=== PATIENT | female | born 1990 | race African-American/Black ===

== ENCOUNTER 2019-01-19 13:28 | Inpatient (IN) | payer MEDICARE ==
[~2019-01-19] VITALS: Ht 157.5 cm; Wt 102.1 kg
[2019-01-19] MEDS ORDERED: IV NORMAL SALINE 1,000ML 1,000 ML IV SCH (13:50)
--- NOTE | 2019-01-19 13:58 | PHYS DOC ---
Past History Past Medical History: Hypertension, Pancreatitis Past Surgical History: No Surgical History Alcohol Use: Sober Drug Use: None Adult General Chief Complaint Chief Complaint: MULTIPLE COMPLAINTS HPI HPI Patient is a 28-year-old female with upper abdominal pain going into her chest like previous episodes of pancreatitis. Patient drank a pint yesterday, after being sober for the past month. She has had 3 episodes of nausea and vomiting today as well as diarrhea. No blood in the stool or emesis. No travel. No fever. No worsening of the chest discomfort with exertion. No change with rest. No worsening of abdominal pain with movement. Discomfort is mild to moderate. Nothing seems to make the discomfort better or worse. His no radiation other than as noted above, no radiation down the arms or into the back.[] Review of Systems Review of Systems Constitutional: Denies fever or chills [] Eyes: Denies change in visual acuity, redness, or eye pain [] HENT: Denies nasal congestion or sore throat [] Respiratory: Denies cough or shortness of breath [] Cardiovascular: No additional information not addressed in HPI [] GI: See history of present illness[] : Denies dysuria or hematuria [] Musculoskeletal: Denies back pain or joint pain [] Integument: Denies rash or skin lesions [] Neurologic: Denies headache, focal weakness or sensory changes [] Endocrine: Denies polyuria or polydipsia [] All other systems were reviewed and found to be within normal limits, except as documented in this note. Current Medications Current Medications Current Medications Medications (Trade) Dose Ordered Sig/Luis Felipe Start Time Stop Time Status Last Admin Dose Admin Ketorolac Tromethamine (Toradol 30mg Vial) 30 mg 1X ONCE 01/19/19 14:00 01/19/19 14:01 UNV Prochlorperazine Edisylate (Compazine) 5 mg 1X ONCE 01/19/19 14:00 01/19/19 14:01 UNV Sodium Chloride 1,000 ml @ 1,000 mls/hr Q1H 01/19/19 13:50 01/19/19 14:49 UNV Physical Exam Physical Exam Constitutional: Well developed, well nourished, no acute distress, non-toxic appearance. [] HENT: Normocephalic, atraumatic, bilateral external ears normal, oropharynx moist, no oral exudates, nose normal. [] Eyes: PERRLA, EOMI, conjunctiva normal, no discharge. [] Neck: Normal range of motion, no tenderness, supple, no stridor. [] Cardiovascular:Heart rate is tachycardic with a regular rhythm, no murmur [] Lungs & Thorax: Bilateral breath sounds clear to auscultation [] Abdomen: Bowel sounds normal, soft, mild upper abdominal tenderness without rebound, guarding, or rigidity, no McBurney's point tenderness, and negative Alvarado's sign, no masses, no pulsatile masses. [] Skin: Warm, dry, no erythema, no rash. [] Back: No tenderness, no CVA tenderness. [] Extremities: No tenderness, no cyanosis, no clubbing, ROM intact, no edema. [] Neurologic: Alert and oriented X 3, normal motor function, normal sensory function, no focal deficits noted. [] Psychologic: Affect normal, judgement normal, mood normal. [] EKG EKG EKG shows a sinus tachycardia at 105 bpm, leftward axis at 0�, QTC 496 ms, incomplete right bundle branch block. No old EKG available for comparison. Interpreted by me at 1343[] Radiology/Procedures Radiology/Procedures PROCEDURE: CT ABD PELV W/ IV CONTRST ONLY CT abdomen and pelvis with IV contrast 01/19/2019. Reason for exam: Upper abdominal pain. History of pancreatitis. CT images were made through the abdomen and pelvis using an infusion of 75 mL Omnipaque 300. No oral contrast was given. Exposure: One or more of the following individualized dose reduction techniques were utilized for this examination: 1. Automated exposure control 2. Adjustment of the mA and/or kV according to patient size 3. Use of iterative reconstruction technique. There are no available comparison studies. FINDINGS: There is a small nodular structure in the lingula at the upper most margin of the scan. This measures about 1 cm and is only partly shown. This could represent a focal infiltrate. Given the patient's age, other processes are less likely. The liver shows diffuse fatty infiltration and is enlarged. No focal lesion is seen. The spleen appears normal. Both kidneys enhance with contrast. No mass or obstruction is seen. The adrenal glands are not enlarged. There is haziness in the peripancreatic fat. No pancreatic mass or localized fluid collection is seen. There may be slight reduction in enhancement through the mid pancreas, but there is no evidence of significant necrosis at this time. No adenopathy or soft tissue mass is seen. Images through the pelvis show no abnormality of the distal ureters or bladder. No pelvic or inguinal adenopathy is seen. Uterus and adnexal areas appear normal for age. There is no separate pelvic mass or other inflammatory process. A normal appendix is probably seen medial to the cecum. IMPRESSION: Findings are consistent with acute interstitial pancreatitis. There is no evidence of significant necrosis or other complication at this point.[] Course & Med Decision Making Course & Med Decision Making Pertinent Labs and Imaging studies reviewed. (See chart for details) ED course: Patient arrived, was placed in bed, and tolerated exam well. She received IV fluids, and pain medicine, and was transported to and from radiology with any complications. After the return of lab and imaging findings, these were discussed the patient and her father at the patient's request. Patient's heart rate improved to the 80s. Pain was improved as well. Consultation was made with hospitalist service who graciously accepted. Patient was admitted in i mproved condition. Medical decision makin-year-old female with acute pancreatitis. Admitting for IV hydration and longer term pain management in the emergency department can provide. No evidence of an acute coronary syndrome, no evidence of significant electrolyte abnormality. No evidence of obstruction or perforation.[] Dragon Disclaimer Dragon Disclaimer This electronic medical record was generated, in whole or in part, using a voice recognition dictation system. Departure Departure: Impression: Primary Impression: Acute pancreatitis Disposition: ADMITTED INPATIENT Admitting Physician: Sara Frederick Condition: IMPROVED Referrals: PCP,NO (PCP) Problem Qualifiers Primary Impression: Acute pancreatitis Pancreatitis type: alcohol induced Acute pancreatitis complication: no infection or necrosis Qualified Codes: K85.20 - Alcohol induced acute pancreatitis without necrosis or infection ALEXIS PAUL DO Jan 19, 2019 13:58
[2019-01-19] MEDS ORDERED: KETOROLAC 30 MG/ML VIAL. IV ONE (14:00)
[2019-01-19] MEDS ORDERED: PROCHLORPERAZINE 10 MG/2 ML VIAL. IV ONE (14:00)
[2019-01-19] MEDS ORDERED: IOHEXOL 300 MG/ML 75 ML VIAL. IV ONE (14:30)
[2019-01-19 14:57] LABS: BASO % 1 % (0-3); EOS % 0 % (0-3); HEMOGLOBIN 12.9 g/dL (12.0-15.5); LYMPH # 2.8 x10^3/uL (1.0-4.8); LYMPH % 34 % (24-48); MEAN CORPUSCULAR HEMOGLOBIN 28 pg (25-35); MEAN CORPUSCULAR HGB CONC 33 g/dL (31-37); MEAN CORPUSCULAR VOLUME 84 fL (79-100); MONO # 0.8 x10^3/uL (0.0-1.1); MONO % 9 % (0-9); NEUT # 4.7 x10^3uL (1.8-7.7); NEUT % 56 % (31-73); PLATELET COUNT 383 x10^3/uL (140-400); RED BLOOD COUNT 4.63 x10^6/uL (3.50-5.40); RED CELL DISTRIBUTION WIDTH 16.1 % (11.5-14.5); WHITE BLOOD COUNT 8.3 x10^3/uL (4.0-11.0)
[2019-01-19 15:07] LABS: ALBUMIN/GLOBULIN RATIO 0.8 (1.0-1.7); CALCIUM 8.9 mg/dL (8.5-10.1); CREATININE 1.1 mg/dL (0.6-1.0); GFR 71.1; POTASSIUM 4.4 mmol/L (3.5-5.1); TOTAL BILIRUBIN 0.4 mg/dL (0.2-1.0)
[2019-01-19 15:11] LABS: BARBITURATES NEG (NEG); BENZODIAZEPINES NEG (NEG); CANNABINOIDS NEG (NEG); COCAINE NEG (NEG); METHADONE NEG (NEG); OPIATES NEG (NEG); PHENCYCLIDINE NEG (NEG)
[2019-01-19 15:22] LABS: AMPHETAMINE/METHAMPHETAMINE NEG (NEG)
[2019-01-19] MEDS ORDERED: MORPHINE SULFATE 4 MG/ML DISP.SYRIN. IV/SQ PRN (16:00)
--- NOTE | 2019-01-19 16:08 | RAD ---
CT abdomen and pelvis with IV contrast 01/19/2019. Reason for exam: Upper abdominal pain. History of pancreatitis. CT images were made through the abdomen and pelvis using an infusion of 75 mL Omnipaque 300. No oral contrast was given. Exposure: One or more of the following individualized dose reduction techniques were utilized for this examination: 1. Automated exposure control 2. Adjustment of the mA and/or kV according to patient size 3. Use of iterative reconstruction technique. There are no available comparison studies. FINDINGS: There is a small nodular structure in the lingula at the upper most margin of the scan. This measures about 1 cm and is only partly shown. This could represent a focal infiltrate. Given the patient's age, other processes are less likely. The liver shows diffuse fatty infiltration and is enlarged. No focal lesion is seen. The spleen appears normal. Both kidneys enhance with contrast. No mass or obstruction is seen. The adrenal glands are not enlarged. There is haziness in the peripancreatic fat. No pancreatic mass or localized fluid collection is seen. There may be slight reduction in enhancement through the mid pancreas, but there is no evidence of significant necrosis at this time. No adenopathy or soft tissue mass is seen. Images through the pelvis show no abnormality of the distal ureters or bladder. No pelvic or inguinal adenopathy is seen. Uterus and adnexal areas appear normal for age. There is no separate pelvic mass or other inflammatory process. A normal appendix is probably seen medial to the cecum. IMPRESSION: Findings are consistent with acute interstitial pancreatitis. There is no evidence of significant necrosis or other complication at this point. Electronically signed by: Wenceslao Celestin Jr., MD (01/19/2019 4:05 PM) [facility]
[2019-01-19] MEDS: IV NORMAL SALINE 1,000ML 1,000 ML IV SCH (16:53)
[2019-01-19] MEDS ORDERED: MVI, ADULT NO.4 WITH VIT K 10 ML, FOLIC ACID SYRINGE for ER 1 MG, THIAMINE INJ 100 MG i... IV ONE ×4 (17:00)
[2019-01-19 18:01] VITALS: BP 134/81
[2019-01-19] MEDS ORDERED: LOSA50TA86 PO (18:11)
[2019-01-19] MEDS ORDERED: FLUO20CA8 PO (18:11)
[2019-01-19] MEDS ORDERED: TRIA1CAP3 PO (18:11)
[2019-01-19] MEDS ORDERED: CLON1TAB11 PO (18:11)
[2019-01-19] MEDS ORDERED: SPIR25TA5 PO (18:11)
[2019-01-19] MEDS: ONDANSETRON PF 4 MG/2 ML VIAL. IV PRN ×2 (18:16→23:19)
[2019-01-19] MEDS: MORPHINE SULFATE 4 MG/ML DISP.SYRIN. IV PRN ×2 (18:17→21:15)
[2019-01-19 23:33] VITALS: BP 112/78
[2019-01-20] VITALS (9 sets, daily range): BP systolic 116–168; BP diastolic 81–128
[2019-01-20] MEDS: IV NORMAL SALINE 1,000ML 1,000 ML IV SCH ×3 (00:16→20:15)
[2019-01-20] MEDS: MORPHINE SULFATE 4 MG/ML DISP.SYRIN. IV PRN ×9 (01:15→22:31)
[2019-01-20] MEDS: ONDANSETRON PF 4 MG/2 ML VIAL. IV PRN ×2 (03:12→07:31)
[2019-01-20] MEDS: ENALAPRILAT 2.5 MG/2 ML VIAL. IV PRN ×2 (06:57→07:26)
[2019-01-20 07:15] LABS: BASO % 1 % (0-3); EOS % 1 % (0-3); HEMATOCRIT 36.8 % (36.0-47.0); LYMPH # 1.7 x10^3/uL (1.0-4.8); LYMPH % 20 % (24-48); MEAN CORPUSCULAR HEMOGLOBIN 27 pg (25-35); MEAN CORPUSCULAR HGB CONC 33 g/dL (31-37); MEAN CORPUSCULAR VOLUME 84 fL (79-100); MONO # 0.5 x10^3/uL (0.0-1.1); MONO % 6 % (0-9); NEUT # 6.2 x10^3uL (1.8-7.7); NEUT % 73 % (31-73); PLATELET COUNT 315 x10^3/uL (140-400); RED BLOOD COUNT 4.41 x10^6/uL (3.50-5.40); RED CELL DISTRIBUTION WIDTH 16.1 % (11.5-14.5); WHITE BLOOD COUNT 8.5 x10^3/uL (4.0-11.0)
[2019-01-20 07:31] LABS: ALBUMIN 3.5 g/dL (3.4-5.0); ALBUMIN/GLOBULIN RATIO 0.8 (1.0-1.7); CALCIUM 7.9 mg/dL (8.5-10.1); CREATININE 0.8 mg/dL (0.6-1.0); GFR 102.6; POTASSIUM 3.6 mmol/L (3.5-5.1); TOTAL BILIRUBIN 0.6 mg/dL (0.2-1.0); TOTAL PROTEIN 7.9 g/dL (6.4-8.2)
[2019-01-20] MEDS ORDERED: LABETALOL 20 MG/4 ML DISP.SYRIN. IVP PRN (11:30)
[2019-01-20] MEDS: LABETALOL 100 MG/20 ML VIAL. IV PRN (11:47)
[2019-01-20] MEDS ORDERED: MORPHINE SULFATE 4 MG/ML DISP.SYRIN. ONE (17:42)
[2019-01-20] MEDS ORDERED: ONDANSETRON PF 4 MG/2 ML VIAL. IV PRN (18:30)
--- NOTE | 2019-01-20 22:12 | HP ---
ADMIT DATE: 01/19/2019 HISTORY OF PRESENT ILLNESS: The patient is a 28-year-old female patient who came to the Emergency Room complaining of severe upper abdominal pain, going to her chest like previous episodes of pancreatitis. The patient drank a pint on Sunday after being sober for the past month. She has had 3 episodes of nausea and vomiting yesterday as well as diarrhea. No blood in the stool or emesis. No travel, no fever, no worsening of the chest discomfort with exertion. No change with rest. No worsening of abdominal pain with movement. Discomfort is mild to moderate. Nothing seems to make the discomfort better or worse. She was extensively investigated and was found to have acute pancreatitis. Her serum lipase was 106, has also transaminitis; however, her white cell count was normal. Urinalysis was unremarkable and toxic screen was negative, was admitted, kept n.p.o., started on IV fluid, IV pain medication. PAST MEDICAL HISTORY: Significant for hypertension, prediabetes, hyperlipidemia, although she is not on any cholesterol lowering agent. PAST SURGICAL HISTORY: Unremarkable. ALLERGIES: She has no known drug allergies. MEDICATIONS: She is currently on following medications: She is on losartan potassium 50 mg once a day, spironolactone 25 mg once a day, clonazepam 1 mg daily, fluoxetine 20 mg daily, triamterene/hydrochlorothiazide 37.5/25 one tablet once a day. FAMILY HISTORY: She is the only child, has no brothers or sisters. Her father is still alive at age of 53 and has hypertension. Mother at age 43 because of multiple sclerosis. SOCIAL HISTORY: She is , has 1 daughter. She does not smoke; however, she drinks alcohol and has had 3 previous episodes of pancreatitis related to alcohol and does not use any drugs. She is currently [id number] mom. PHYSICAL EXAMINATION: GENERAL: On arrival to the Emergency Room, she was clearly in pain, but there is no pallor, jaundice or cyanosis. No lymphadenopathy, no thyromegaly. No jugular venous distention. No limb edema. VITAL SIGNS: Her heart rate was 90, blood pressure was 143/92, temperature was 97.7, respiratory rate was 18 and oxygen saturation was 99%. HEAD, EYES, EARS, NOSE AND THROAT: Showed normocephalic, atraumatic. NECK: Supple. HEART: Showed normal first and second heart sounds. No gallop, rub or murmur. CHEST: Clear to auscultation. No crepitation, rhonchi. ABDOMEN: Distended, soft, nontender. No guarding or rigidity. No organomegaly. All hernial orifice intact. Bowel sounds normal. NEUROLOGIC: She is awake, alert, responding appropriately. All cranial nerves intact. EXTREMITIES: She moves extremities without difficulty. She ambulates without assistance or assistive devices. LABORATORY WORK: On admission showed a white cell count of 8300, hemoglobin 12.9, hematocrit 39, MCV 84 and platelet count 383,000. Her chemistry showed a serum sodium 134, potassium 4.4, chloride 100, bicarbonate 19, anion gap of 15, BUN 16, creatinine 1.1, estimated GFR was 71 mL per minute. Her glucose 122, calcium was 8.9. Total bilirubin is normal; however, AST, ALT, alkaline phosphatase are elevated. Total protein was 9, albumin was 4 and serum lipase was 106. Urinalysis showed that the urine test was negative and toxic screen was negative for opiates, methadone, barbiturates, phencyclidine, amphetamine, methamphetamine, benzodiazepine, cocaine, cannabinoids and ethyl alcohol. She did have a CT scan of the abdomen and pelvis, which basically showed that findings are consistent with acute interstitial pancreatitis. There is no evidence of significant necrosis or other complication at this point. ASSESSMENT AND PLAN: In summary, this is a 28-year-old female patient who is coming for the fourth episode of alcohol-induced pancreatitis. The patient was kept n.p.o., started on IV fluid, IV pain medication. She is also on Zofran as well as enalapril 8 and labetalol for high blood pressure, started also on alcohol withdrawal protocol. DESIREE PETERSON MD DR: LOUANN/chani JOB#: [id number] / [id number]
--- NOTE | 2019-01-21 00:41 | PN ---
DATE: 01/20/2019 SUBJECTIVE: The patient is resting slightly propped up in bed, continued to complain of pain in the epigastric area that radiates through and through to the back. Denied any nausea or vomiting, has no more diarrhea or constipation. Unfortunately, her serum lipase has risen further to 1469. However, she insists she wants to eat and I explained the risk of that and documented that. PHYSICAL EXAMINATION: GENERAL: When I examined her this afternoon, she looked well and was clearly in no apparent respiratory distress. No pallor, jaundice, cyanosis or thyromegaly. No jugular venous distension. No lower limb edema. VITAL SIGNS: Her heart rate was 84, blood pressure 143/92, temperature was 97.7, respiratory rate 20, and oxygen saturation was 97%. The rest of clinical exam is stable, has not really changed. Her intake was 1000, no output was recorded. LABORATORY DATA: Her lab work this morning showed a serum sodium 135, potassium 3.6, chloride 103, bicarbonate 21, anion gap of 11, BUN 13, creatinine 0.8, estimated GFR was 102 mL per minute. Her glucose was 129, calcium was 7.9. Total bilirubin, AST, ALT, alkaline phosphatase slightly elevated, although they are trending down. Her total protein was 7.9, albumin 3.4. Her lipase was up to 1469. ASSESSMENT AND PLAN: Relapsing alcohol-induced pancreatitis. We will continue with IV fluid, continue with IV pain medication. Continue with IV antihypertensive medications including enalapril and labetalol. I will repeat her lab work tomorrow and we have strongly advised her against eating, particularly she continues to complain of pain and her lipase is going up. However, obviously we cannot force her not to eat. DESIREE PETERSON MD DR: LOUANN/chani JOB#: [id number] / [id number]
[2019-01-21] MEDS: MORPHINE SULFATE 4 MG/ML DISP.SYRIN. IV PRN ×6 (04:33→23:32)
[2019-01-21] MEDS: IV NORMAL SALINE 1,000ML 1,000 ML IV SCH ×2 (04:33→12:51)
[2019-01-21 05:31] VITALS: BP 143/73
[2019-01-21 06:54] LABS: ALBUMIN 2.9 g/dL (3.4-5.0); ALBUMIN/GLOBULIN RATIO 0.8 (1.0-1.7); CALCIUM 7.1 mg/dL (8.5-10.1); CREATININE 0.7 mg/dL (0.6-1.0); GFR 119.7; POTASSIUM 3.2 mmol/L (3.5-5.1); TOTAL BILIRUBIN 0.5 mg/dL (0.2-1.0); TOTAL PROTEIN 6.7 g/dL (6.4-8.2)
[2019-01-21 11:03] VITALS: BP 119/78
[2019-01-21 15:10] VITALS: BP 132/86
[2019-01-21] MEDS: POTASSIUM CL 40MEQ D5-0.45NACL 1,000 ML IV SCH (15:41)
[2019-01-21 19:40] VITALS: BP 148/92
--- NOTE | 2019-01-21 22:34 | PN ---
DATE: 01/21/2019 SUBJECTIVE: The patient is resting, slightly propped up in bed, in no apparent distress, continued to have mild abdominal pain with some nausea, but no vomiting. Her lipase has come down significantly from almost 1500 to 404. PHYSICAL EXAMINATION: GENERAL: When I examined her, she looked well and was clearly in no apparent respiratory distress. No pallor, jaundice, cyanosis or thyromegaly. No jugular venous distention. No limb edema. VITAL SIGNS: Her heart rate was 78, blood pressure was 119/78, temperature was 97.9, respiratory rate 20, and oxygen saturation was 97%. HEAD, EYES, EARS, NOSE AND THROAT: Showed normocephalic, atraumatic. NECK: Supple. HEART: Showed normal first and second heart sounds. No gallop, rub or murmur. CHEST: Clear to auscultation. No crepitation or rhonchi. ABDOMEN: Distended, soft, nontender. No guarding or rigidity. No organomegaly. All hernial orifice intact. Bowel sounds normal. NEUROLOGIC: She was awake, alert, responding appropriately. All cranial nerves intact. She moves extremities without difficulty. She ambulates without assistance or assistive devices. Her intake and output were incompletely recorded. LABORATORY DATA: Her lab work showed a serum sodium 136, potassium 3.2, chloride 104, bicarbonate 22, anion gap of 10, BUN 7, creatinine 0.7, estimated GFR was 119 mL per minute. Her glucose was 118, calcium was 7.1. Total bilirubin, AST, ALT, alkaline phosphatase, all resolving. Her total protein was 6.7, albumin was 2.9 and lipase was 404. ASSESSMENT: Alcohol-induced acute relapsing pancreatitis. Other medical problems include hypertension, impaired glucose tolerance and hyperlipidemia. PLAN: To start her on a clear liquid diet and advance as tolerated. She has hypokalemia, change her IV fluid to D5 half normal with 40 mEq of potassium chloride. DESIREE PETERSON MD DR: LOUANN/chani JOB#: [id number] / [id number]
[2019-01-21 23:34] VITALS: BP 127/87
[2019-01-22] MEDS: MORPHINE SULFATE 4 MG/ML DISP.SYRIN. IV PRN ×7 (02:13→21:23)
[2019-01-22 02:14] VITALS: BP 143/95
[2019-01-22] MEDS: POTASSIUM CL 40MEQ D5-0.45NACL 1,000 ML IV SCH ×2 (04:41→16:57)
[2019-01-22 06:12] VITALS: BP 139/92
[2019-01-22 06:22] LABS: CALCIUM 7.3 mg/dL (8.5-10.1); CREATININE 0.6 mg/dL (0.6-1.0); POTASSIUM 3.6 mmol/L (3.5-5.1)
[2019-01-22] MEDS: LABETALOL 100 MG/20 ML VIAL. IV PRN (10:47)
[2019-01-22 11:11] VITALS: BP 160/112
[2019-01-22] MEDS: ENALAPRILAT 2.5 MG/2 ML VIAL. IV PRN (14:49)
[2019-01-22 15:00] VITALS: BP 153/105
[2019-01-22] MEDS ORDERED: LABETALOL 20 MG/4 ML DISP.SYRIN. IVP PRN (17:00)
[2019-01-22] MEDS ORDERED: LABETALOL 100 MG/20 ML VIAL. IV PRN (17:00)
[2019-01-22] MEDS ORDERED: ENALAPRILAT 2.5 MG/2 ML VIAL. IV PRN (17:00)
[2019-01-22 18:20] VITALS: BP 148/109
--- NOTE | 2019-01-22 21:16 | DS ---
DATE OF DISCHARGE: 01/22/2019 HOSPITAL COURSE: The patient is a 28-year-old female patient who was admitted with abdominal pain and was diagnosed with acute relapsing alcohol-induced pancreatitis. This is the fourth episode over the last year. She was kept n.p.o., started on IV fluid, pain medication, antiemetic. Her potassium was low, so we replenished that. Her serum lipase has peaked up to 1469 this morning, it was down to 187. However, the patient continued to complain of pain, aggravated by food and therefore, a decision was made to transfer her to [facility] to consult the Gastroenterology team. PHYSICAL EXAMINATION: GENERAL: When I examined her this afternoon, she was resting slightly propped up in bed, in no apparent respiratory distress. No pallor, jaundice, cyanosis, or thyromegaly. No jugular venous distension. No limb edema. VITAL SIGNS: Her heart rate was 90, blood pressure was 153/105, temperature was 98.1, respiratory rate 20, and oxygen saturation was 96%. HEAD, EYES, EARS, NOSE AND THROAT: Normocephalic, atraumatic. NECK: Supple. HEART: Showed normal first and second heart sounds with no gallop, rub or murmur. CHEST: Clear to auscultation. No crepitation or rhonchi. ABDOMEN: Distended, soft, nontender. Tenderness mostly in the epigastric area. No guarding or rigidity. No organomegaly. All hernial orifice intact. Bowel sounds normal. NEUROLOGIC: She is awake, alert, responding appropriately. All cranial nerves are intact. She moves extremities without difficulty. Her intake was 3664, no output was recorded. LABORATORY DATA: As of this morning showed serum sodium 138, potassium 3.6, chloride 104, bicarbonate 25, anion gap of 9, BUN 3, creatinine 0.6, estimated GFR was 143 mL per minute. Her glucose 139, calcium was 7.3 and serum lipase was 187. Her white cell count was 8500, hemoglobin 12, hematocrit 36, MCV 84 and platelet count 315,000. Urinalysis showed that urine test was negative. Toxic screen was negative. Her CT scan of the abdomen and pelvis showed that the patient has finding consistent with acute interstitial pancreatitis and no evidence of significant necrosis or other complication at this point. DISCHARGE DISPOSITION: The patient was transferred to [place] to continue with the D5 half normal with 40 mEq of potassium chloride at 75 mL per hour, ondansetron 4 mg IV every 4 hours, morphine sulfate 4 mg every 2 hours, labetalol 10 mg IV every 4 hours, enalapril 8 at 1.25 mg every 6 hours, lorazepam 2 mg as needed for alcohol withdrawal protocol. FINAL DISCHARGE DIAGNOSES: 1. Relapsing alcohol-induced pancreatitis. 2. Other medical problems include: A. Hypertension. B. Impaired glucose tolerance. 3. Hyperlipidemia. She is on triamterene/hydrochlorothiazide that might have also contributed to her acute pancreatitis. DESIREE PETERSON MD DR: LOUANN/chani JOB#: [id number] / [id number]
== END 2019-01-22 22:15 | disposition short-term general hospital (02) | DRG 439 ==
LOC: ER 13:28 → 1 SOUTH 17:17
PROVIDERS: ADMIT Internal Medicine; ATTEND Internal Medicine
DX: K85.80 Other acute pancreatitis without necrosis or infection (principal); E87.1 Hypo-osmolality and hyponatremia; I10 Essential (primary) hypertension; E78.5 Hyperlipidemia, unspecified; K86.1 Other chronic pancreatitis; Z82.0 Family history of epilepsy and other diseases of the nervous system; Z82.49 Family history of ischemic heart disease and other diseases of the circulatory system; Z79.899 Other long term (current) drug therapy
CPT/HCPCS: 36415; 74177; 80048; 80053; 80307; 81025; 82947; 83690; 84484; 85025; 96361; 96374; 96375; J0780; J1885; J2060; J2270; J2405; J3490; J7042; J7120; Q9967; 99285-25; J7030

== ENCOUNTER 2019-03-14 12:27 | Emergency (ER) | payer MEDICARE ==
[~2019-03-14 12:27] MED LIST: CLON1TAB11 PO; FLUO20CA8 PO; LOSA50TA86 PO; SPIR25TA5 PO; TRIA1CAP3 PO
[2019-03-14 12:40] VITALS: BP 158/116
--- NOTE | 2019-03-14 12:58 | PHYS DOC ---
Past History Past Medical History: Hypertension, Pancreatitis Past Surgical History: No Surgical History Alcohol Use: Occasionally Drug Use: None Adult General Chief Complaint Chief Complaint: ABDOMINAL PAIN HPI HPI 28-year-old female presents with epigastric abdominal pain. This started this morning after she woke up. She wasn't doing anything in particular. The patient is concerned because she has a history of pancreatitis and she did drink some beer yesterday. He hasn't drank alcohol in quite a while. The pain as a cramping sensation similar to her previous pancreatitis episodes. She denies fever or chills. Denies vomiting. She does not get heartburn very, but does admit that if she eats greasy food she gets epigastric pain for a few hours. She has never had her gallbladder evaluated. No history of abdominal surgery. Review of Systems Review of Systems Constitutional: Denies fever or chills [] Eyes: Denies change in visual acuity, redness, or eye pain [] HENT: Denies nasal congestion or sore throat [] Respiratory: Denies cough or shortness of breath [] Cardiovascular: No additional information not addressed in HPI [] GI: Epigastric abdominal pain, nausea. Denies vomiting, bloody stools or diarrhea [] : Denies dysuria or hematuria [] Musculoskeletal: Denies back pain or joint pain [] Integument: Denies rash or skin lesions [] Neurologic: Denies headache, focal weakness or sensory changes [] Endocrine: Denies polyuria or polydipsia [] All other systems were reviewed and found to be within normal limits, except as documented in this note. Current Medications Current Medications Current Medications Medications (Trade) Dose Ordered Sig/[facility] Start Time Stop Time Status Last Admin Dose Admin Ondansetron HCl (Zofran) 4 mg 1X ONCE 03/14/19 13:00 03/14/19 13:01 Sodium Chloride 1,000 ml @ 1,000 mls/hr 1X ONCE 03/14/19 13:00 03/14/19 13:59 Allergies Allergies Allergies Coded Allergies Type Severity Reaction Last Updated Verified No Known Drug Allergies 01/19/19 No Physical Exam Physical Exam Constitutional: Well developed, obese, well nourished, no acute distress, non- toxic appearance. [] HENT: Normocephalic, atraumatic, bilateral external ears normal, oropharynx moist, no oral exudates, nose normal. [] Eyes: PERRLA, EOMI, conjunctiva normal, no discharge. [] Neck: Normal range of motion, no tenderness, supple, no stridor. [] Cardiovascular:Heart rate regular rhythm, no murmur [] Lungs & Thorax: Bilateral breath sounds clear to auscultation [] Abdomen: Bowel sounds normal, soft, epigastric tenderness, no masses, no pulsatile masses. [] Skin: Warm, dry, no erythema, no rash. [] Back: No tenderness, no CVA tenderness. [] Extremities: No tenderness, no cyanosis, no clubbing, ROM intact, no edema. [] Neurologic: Alert and oriented X 3, normal motor function, normal sensory function, no focal deficits noted. [] Psychologic: Affect normal, judgement normal, mood normal. [] Current Patient Data Vital Signs Vital Signs Date Time Temp Pulse Resp B/P (MAP) Pulse Ox O2 Delivery O2 Flow Rate FiO2 03/14/19 12:40 97.8 97 18 100 Room Air EKG EKG [] Radiology/Procedures Radiology/Procedures [] Impressions: Limited abdomen ultrasound study Clinical indications: Elevated liver enzymes. Elevated lipase. Right upper quadrant pain. FINDINGS: The study is technically difficult due to the patient's larger body habitus and overlying bowel gas. Midline structures including the pancreas and IVC and abdominal aorta and common bile duct are not visualized as a result. The gallbladder is normal without gallstones. There is diffuse attenuation of sound throughout the liver which may be seen with fatty infiltration of the liver. This decreases the sensitivity of sonography to detect focal hepatic lesions. No focal hepatic mass is seen otherwise. The liver measures 18 cm in length which is mildly enlarged. The length of the right kidney is 10.6 cm. No hydronephrosis or renal mass or perinephric fluid collection is seen on the right side. IMPRESSION: Mild hepatomegaly. Fatty infiltration of the liver. Normal sonographic evaluation of the gallbladder. Midline structures are not visualized. Electronically signed by: Elo Collier MD (03/14/2019 2:31 PM) [id number] DICTATED AND SIGNED BY: ELO COLLIER MD DATE: 03/14/19 1431 CC: ZENIA HANCOCK DO; PCP,NO ~ Course & Med Decision Making Course & Med Decision Making Pertinent Labs and Imaging studies reviewed. (See chart for details) The patient's liver enzymes are elevated. Her lipase is slightly elevated. I have ordered an ultrasound. Ultrasound shows significant fatty infiltration, but no stone or evidence of obstructed bile duct. I have given her 2 mg of morphine for her pain. I will discharge her with Tramodol 50 mg tablets. I have strongly advised that she follow-up with a hot mill shearer. She stated verbal understanding. She is stable for discharge at this time. [] Dragon Disclaimer Dragon Disclaimer This electronic medical record was generated, in whole or in part, using a voice recognition dictation system. Departure Departure: Impression: Primary Impression: Fatty liver Additional Impressions: Elevated liver enzymes Epigastric abdominal pain Disposition: HOME, SELF-CARE Condition: STABLE Referrals: PCPISAI (PCP) Patient Instructions: Abdominal Pain, [id number] Additional Instructions: Please call to follow-up on your abnormal liver lab values and fatty liver. His phone number is:[phone]. Scripts Tramadol Hcl (TRAMADOL HCL) 50 Mg Tablet 50 MG PO PRN Q6HRS PRN for PAIN, #10 TAB Prov: ZENIA HANCOCK DO 03/14/19 Problem Qualifiers ZENIA HANCOCK DO Mar 14, 2019 12:58
[2019-03-14] MEDS ORDERED: IV NORMAL SALINE 1,000ML 1,000 ML IV ONE (13:00)
[2019-03-14] MEDS ORDERED: ONDANSETRON PF 4 MG/2 ML VIAL. IVP ONE (13:00)
[2019-03-14 13:05] LABS: BASO # 0.1 x10^3/uL (0.0-0.2); BASO % 1 % (0-3); EOS % 0 % (0-3); HEMATOCRIT 37.1 % (36.0-47.0); HEMOGLOBIN 12.2 g/dL (12.0-15.5); LYMPH # 2.5 x10^3/uL (1.0-4.8); LYMPH % 39 % (24-48); MEAN CORPUSCULAR HEMOGLOBIN 28 pg (25-35); MEAN CORPUSCULAR HGB CONC 33 g/dL (31-37); MEAN CORPUSCULAR VOLUME 84 fL (79-100); MONO # 0.5 x10^3/uL (0.0-1.1); MONO % 8 % (0-9); NEUT # 3.3 x10^3uL (1.8-7.7); NEUT % 52 % (31-73); PLATELET COUNT 341 x10^3/uL (140-400); RED BLOOD COUNT 4.41 x10^6/uL (3.50-5.40); RED CELL DISTRIBUTION WIDTH 19.5 % (11.5-14.5); WHITE BLOOD COUNT 6.5 x10^3/uL (4.0-11.0)
[2019-03-14 13:54] LABS: ALBUMIN 3.4 g/dL (3.4-5.0); ALBUMIN/GLOBULIN RATIO 0.7 (1.0-1.7); CALCIUM 7.7 mg/dL (8.5-10.1); CREATININE 0.9 mg/dL (0.6-1.0); GFR 89.6; POTASSIUM 3.7 mmol/L (3.5-5.1); TOTAL BILIRUBIN 0.2 mg/dL (0.2-1.0)
[2019-03-14] MEDS ORDERED: MORPHINE SULFATE 2 MG/ML DISP.SYRIN. IV ONE (14:00)
--- NOTE | 2019-03-14 14:33 | RAD ---
Limited abdomen ultrasound study Clinical indications: Elevated liver enzymes. Elevated lipase. Right upper quadrant pain. FINDINGS: The study is technically difficult due to the patient's larger body habitus and overlying bowel gas. Midline structures including the pancreas and IVC and abdominal aorta and common bile duct are not visualized as a result. The gallbladder is normal without gallstones. There is diffuse attenuation of sound throughout the liver which may be seen with fatty infiltration of the liver. This decreases the sensitivity of sonography to detect focal hepatic lesions. No focal hepatic mass is seen otherwise. The liver measures 18 cm in length which is mildly enlarged. The length of the right kidney is 10.6 cm. No hydronephrosis or renal mass or perinephric fluid collection is seen on the right side. IMPRESSION: Mild hepatomegaly. Fatty infiltration of the liver. Normal sonographic evaluation of the gallbladder. Midline structures are not visualized. Electronically signed by: Bear Collier MD (03/14/2019 2:31 PM) [id number]
[2019-03-14] MEDS ORDERED: TRAM50TA PO (14:45)
[2019-03-15] MEDS ORDERED: FLUO40CA2 PO (21:21)
== END 2019-03-14 14:57 | disposition home or self-care (01) ==
LOC: ER 12:27
DX: K76.0 Fatty (change of) liver, not elsewhere classified (principal); R74.8 Abnormal levels of other serum enzymes; I10 Essential (primary) hypertension
CPT/HCPCS: 99285; J2405; 36415; 76705; 80053; 83690; 85025; J7030

== ENCOUNTER 2019-03-15 14:29 | Inpatient (IN) | payer MEDICARE ==
[~2019-03-15] VITALS: Ht 157.5 cm; Wt 98.0 kg
[~2019-03-15 14:29] MED LIST changes: +TRAM50TA PO
[2019-03-15] MEDS ORDERED: IV NORMAL SALINE 1,000ML 1,000 ML IV ONE ×2 (15:00→16:45)
[2019-03-15] MEDS ORDERED: ONDANSETRON PF 4 MG/2 ML VIAL. IV ONE (15:00)
[2019-03-15 15:09] LABS: BASO # 0.1 x10^3/uL (0.0-0.2); BASO % 1 % (0-3); EOS % 1 % (0-3); HEMATOCRIT 34.9 % (36.0-47.0); HEMOGLOBIN 11.3 g/dL (12.0-15.5); LYMPH # 2.6 x10^3/uL (1.0-4.8); LYMPH % 36 % (24-48); MEAN CORPUSCULAR HEMOGLOBIN 27 pg (25-35); MEAN CORPUSCULAR HGB CONC 32 g/dL (31-37); MEAN CORPUSCULAR VOLUME 83 fL (79-100); MONO # 0.7 x10^3/uL (0.0-1.1); MONO % 10 % (0-9); NEUT # 3.9 x10^3uL (1.8-7.7); NEUT % 53 % (31-73); PLATELET COUNT 277 x10^3/uL (140-400); RED BLOOD COUNT 4.18 x10^6/uL (3.50-5.40); RED CELL DISTRIBUTION WIDTH 19.6 % (11.5-14.5); WHITE BLOOD COUNT 7.3 x10^3/uL (4.0-11.0)
--- NOTE | 2019-03-15 15:12 | PHYS DOC ---
Past History Past Medical History: Hypertension, Pancreatitis Past Surgical History: No Surgical History Additional Smoking Information: Nonsmoker Alcohol Use: Occasionally Drug Use: None Adult General Chief Complaint Chief Complaint: CHEST PAIN HPI HPI 28-year-old female presents with report of epigastric abdominal pain with radiation into her chest and associated nausea. He was seen yesterday for similar with ultrasound results per [facility] without signs of acute cholecystitis. Patient was noted to have elevated LFTs and lipase in the 400s. Patient does report history of prior pancreatitis. Reports had drank a couple beers the day before. Denies trauma. Denies fever or chills. Denies leg swelling or calf tenderness. Reports worse with deep inspiration. Review of Systems Review of Systems Constitutional: Denies fever or chills Eyes: Denies redness or eye pain HENT: Denies nasal congestion or sore throat Respiratory: Denies cough or shortness of breath Cardiovascular: Reports pleuritic chest pain; denies palpitations GI: Reports epigastric abdominal pain and nausea; denies vomiting : Denies dysuria or hematuria Musculoskeletal: Denies back pain or joint pain Integument: Denies rash or skin lesions Neurologic: Denies headache, focal weakness or sensory changes Complete systems were reviewed and found to be within normal limits, except as documented in this note. Current Medications Current Medications Current Medications Medications (Trade) Dose Ordered Sig/[facility] Start Time Stop Time Status Last Admin Dose Admin Famotidine (Pepcid Vial) 20 mg 1X ONCE 03/15/19 15:15 03/15/19 15:16 Iohexol (Omnipaque 350 Mg/ml) 100 ml 1X ONCE 03/15/19 15:15 03/15/19 15:16 Ketorolac Tromethamine (Toradol 15mg Vial) 15 mg 1X ONCE 03/15/19 15:15 03/15/19 15:16 UNV Ondansetron HCl (Zofran) 4 mg 1X ONCE 03/15/19 15:00 03/15/19 15:01 DC Sodium Chloride 1,000 ml @ 1,000 mls/hr 1X ONCE 03/15/19 15:00 03/15/19 15:59 Allergies Allergies Allergies Coded Allergies Type Severity Reaction Last Updated Verified No Known Drug Allergies 01/19/19 No Physical Exam Physical Exam Constitutional: Well developed, well nourished, no acute distress, non-toxic appearance HENT: Normocephalic, atraumatic, oropharynx moist Eyes: Conjunctiva normal, no discharge Neck: Normal range of motion, no tenderness, supple Cardiovascular: Heart rate normal, regular rhythm Lungs & Thorax: Bilateral breath sounds clear to auscultation, no wheezing Abdomen: Soft, epigastric and LUQ tenderness Skin: Warm, dry, no erythema, no rash Extremities: No tenderness, ROM intact, no edema Neurologic: Alert and oriented X 3, no focal deficits noted Psychologic: Affect normal, judgement normal EKG EKG @1439 NSR at 81bpm, NO ST elevation, QRS 88ms, QT/QTc 396/466ms Radiology/Procedures Radiology/Procedures PROCEDURE: CT ANGIO CHEST W ABD PEL W/ CT ANGIO CHEST W ABD PEL W/ Indication: Chest pain with shortness of breath, abdominal pain, symptoms for 2 days. . Technique: After intravenous contrast administration, CT imaging was performed of the chest abdomen pelvis. MIP reconstructions were obtained of the chest. Exposure: One or more of the following individualized dose reduction techniques were utilized for this examination: 1. Automated exposure control 2. Adjustment of the mA and/or kV according to patient size 3. Use of iterative reconstruction technique. CTA chest: No evidence of pulmonary embolism. No evidence of aortic aneurysm. Aortic enhancement is limited due to bolus timing, no definite aortic dissection but could be difficult to exclude. No significant thyroid mass. No significant lymph node enlargement. No pericardial effusion. No significant pleural effusion. Tiny nodule in the left lower lobe measures 2-3 mm. More focal density is seen in the anterior lingula of the left lung measuring about 8 mm, could represent a focal area of consolidation or atelectasis. No evidence of pneumothorax. Trachea and mainstem bronchi are patent. Vertebral body height and alignment are intact. Visualized skeletal structures appear grossly intact. IMPRESSION: 1. No evidence of pulmonary embolism. 2. Small area of opacity in the left lung measuring 8 mm, could represent an area of consolidation or focal infiltrate, versus some focal scarring. This was partially seen on the lung base images from CT abdomen of 01/19/2019 and at least as seen appears similar. Depending on concern, follow-up CT chest could be obtained in one or 2 months. 3. Tiny 2 to 3 mm nodule in the left lower lobe, as per revised Fleischner guidelines no follow-up is necessary if low risk, but if high risk. Consider follow-up CT chest in [address] abdomen pelvis: Comparison with October 19, 2018. Liver is diffusely hypodense compatible with fatty infiltration liver is enlarged, measuring 25 cm cephalocaudal. Spleen is unremarkable. Diffuse stranding and density in the peripancreatic fat appears greater than what was seen on the prior exam. Pancreas is mildly heterogeneous in density. No peripancreatic organized fluid collection or abscess is seen. Thickening of the left anterior pararenal fascia with adjacent fatty stranding has increased since the prior study. No adrenal mass. Kidneys demonstrate symmetric enhancement without hydronephrosis. No calcified gallstone. Aorta is nonaneurysmal. No significant lymph node enlargement. No significant small bowel distention. No evidence of acute colitis. A structure which probably represents normal appendix is identified. No significant pneumoperitoneum or ascites. Urinary bladder not distended. No evidence of pelvic mass. Vertebral body height and alignment are grossly unremarkable. No aggressive bone destruction. IMPRESSION: 1. Findings of pancreatitis with peripancreatic inflammatory stranding have progressed since the prior study. No organized abscess is seen. 2. Hepatomegaly with steatosis is again identified. Electronically signed by: Silverio Azul MD (03/15/2019 4:26 PM) [facility] Course & Med Decision Making Course & Med Decision Making Pertinent Labs and Imaging studies reviewed. (See chart for details) Patient presents with report of epigastric abdominal pain with associated nausea. Patient seen yesterday for same with elevated LFTs and lipase per [facility] review. Ultrasound also noted without signs of acute cholecystitis. Fatty liver noted. Patient reports worsening of symptoms. Labs obtained and posted to chart. LFTs still elevated. Lipase greater then 1000. CTA chest/abdomen/pelvis without signs of PE but noted signs of acute pancreatitis. Incidental pulmonary nodule noted. A copy of CT results given to patient for future follow-up with PCP. Patient requiring admission for further evaluation and treatment. Discussed with Dr. Frederick (hospitalist) who is in agreement with admission. Discussed findings and plan with patient, who acknowledges understanding and agreement. Dragon Disclaimer Dragon Disclaimer This electronic medical record was generated, in whole or in part, using a voice recognition dictation system. Departure Departure: Impression: Primary Impression: Acute pancreatitis Additional Impressions: Elevated LFTs Incidental pulmonary nodule Disposition: ADMITTED INPATIENT Admitting Physician: Sara Frederick Condition: STABLE Referrals: PCP,NO (PCP) Problem Qualifiers Primary Impression: Acute pancreatitis Pancreatitis type: unspecified pancreatitis type Acute pancreatitis complication: unspecified Qualified Codes: K85.90 - Acute pancreatitis without necrosis or infection, unspecified SILVERIO GARVIN DO Mar 15, 2019 15:12
[2019-03-15] MEDS ORDERED: IOHEXOL 350 MG/ML 100 ML VIAL. IV ONE (15:15)
[2019-03-15] MEDS ORDERED: FAMOTIDINE 20 MG/2 ML VIAL IVP ONE (15:15)
[2019-03-15] MEDS ORDERED: KETOROLAC 15 MG/ML VIAL. IV ONE (15:30)
[2019-03-15 15:31] LABS: ALBUMIN 3.6 g/dL (3.4-5.0); ALBUMIN/GLOBULIN RATIO 0.9 (1.0-1.7); ALK PHOS 165 U/L (46-116); ALT (SGPT) 177 U/L (14-59); ANION GAP 13 (6-14); AST (SGOT) 142 U/L (15-37); BLOOD UREA NITROGEN 10 mg/dL (7-20); BUN/CREATININE RATIO 10 (6-20); CALCIUM 7.8 mg/dL (8.5-10.1); CARBON DIOXIDE 26 mmol/L (21-32); CHLORIDE 100 mmol/L (98-107); GFR 79.3; GLUCOSE 123 mg/dL (70-99); LIPASE 1078 U/L (73-393); POTASSIUM 3.8 mmol/L (3.5-5.1); SODIUM 139 mmol/L (136-145); TOTAL BILIRUBIN 0.4 mg/dL (0.2-1.0); TOTAL PROTEIN 7.7 g/dL (6.4-8.2)
[2019-03-15 16:12] LABS: BACTERIA,URINE FEW /HPF (0-FEW); BILIRUBIN,URINE NEG (NEG); CLARITY,URINE HAZY; COLOR,URINE AMBER; GLUCOSE,URINE NEG (NEG); NITRITE,URINE NEG (NEG); RBC,URINE 0 /HPF (0-2); SQUAMOUS EPITHELIAL CELL,UR OCC /LPF; UROBILINOGEN,URINE 1 mg/dL (0.2 mg/dL)
--- NOTE | 2019-03-15 16:29 | RAD ---
CT ANGIO CHEST W ABD PEL W/ Indication: Chest pain with shortness of breath, abdominal pain, symptoms for 2 days. . Technique: After intravenous contrast administration, CT imaging was performed of the chest abdomen pelvis. MIP reconstructions were obtained of the chest. Exposure: One or more of the following individualized dose reduction techniques were utilized for this examination: 1. Automated exposure control 2. Adjustment of the mA and/or kV according to patient size 3. Use of iterative reconstruction technique. CTA chest: No evidence of pulmonary embolism. No evidence of aortic aneurysm. Aortic enhancement is limited due to bolus timing, no definite aortic dissection but could be difficult to exclude. No significant thyroid mass. No significant lymph node enlargement. No pericardial effusion. No significant pleural effusion. Tiny nodule in the left lower lobe measures 2-3 mm. More focal density is seen in the anterior lingula of the left lung measuring about 8 mm, could represent a focal area of consolidation or atelectasis. No evidence of pneumothorax. Trachea and mainstem bronchi are patent. Vertebral body height and alignment are intact. Visualized skeletal structures appear grossly intact. IMPRESSION: 1. No evidence of pulmonary embolism. 2. Small area of opacity in the left lung measuring 8 mm, could represent an area of consolidation or focal infiltrate, versus some focal scarring. This was partially seen on the lung base images from CT abdomen of 01/19/2019 and at least as seen appears similar. Depending on concern, follow-up CT chest could be obtained in one or 2 months. 3. Tiny 2 to 3 mm nodule in the left lower lobe, as per revised Fleischner guidelines no follow-up is necessary if low risk, but if high risk. Consider follow-up CT chest in [address] abdomen pelvis: Comparison with October 19, 2018. Liver is diffusely hypodense compatible with fatty infiltration liver is enlarged, measuring 25 cm cephalocaudal. Spleen is unremarkable. Diffuse stranding and density in the peripancreatic fat appears greater than what was seen on the prior exam. Pancreas is mildly heterogeneous in density. No peripancreatic organized fluid collection or abscess is seen. Thickening of the left anterior pararenal fascia with adjacent fatty stranding has increased since the prior study. No adrenal mass. Kidneys demonstrate symmetric enhancement without hydronephrosis. No calcified gallstone. Aorta is nonaneurysmal. No significant lymph node enlargement. No significant small bowel distention. No evidence of acute colitis. A structure which probably represents normal appendix is identified. No significant pneumoperitoneum or ascites. Urinary bladder not distended. No evidence of pelvic mass. Vertebral body height and alignment are grossly unremarkable. No aggressive bone destruction. IMPRESSION: 1. Findings of pancreatitis with peripancreatic inflammatory stranding have progressed since the prior study. No organized abscess is seen. 2. Hepatomegaly with steatosis is again identified. Electronically signed by: Silverio Azul MD (03/15/2019 4:26 PM) [facility]
[2019-03-15 18:24] VITALS: BP 148/80
[2019-03-15 19:50] VITALS: BP 122/72
[2019-03-15] MEDS: ONDANSETRON PF 4 MG/2 ML VIAL. IV PRN ×2 (19:57→23:31)
[2019-03-15] MEDS ORDERED: FLUO40CA2 PO (21:21)
[2019-03-15 23:35] VITALS: BP 130/78
--- NOTE | 2019-03-16 04:05 | EKG ---
[address] [address] Test Date: 2019-03-15 Test Time: 14:39:54 Pat Name: OSCAR SALCEDO Department: Room: Gender: F Infection Preventionist: : 1990 Requested By: MAX GARVIN Order Number: [id number] Reading MD: Measurements Intervals [place] Rate: 81 P: 31 GA: 160 QRS: 1 QRSD: 88 T: 33 QT: 396 QTc: 466 Interpretive Statements SINUS RHYTHM NO SPECIFIC ECG ABNORMALITIES RI6.01 No previous ECG available for comparison
[2019-03-16] MEDS: ONDANSETRON PF 4 MG/2 ML VIAL. IV PRN ×2 (05:11→10:18)
[2019-03-16 06:34] VITALS: BP 128/82
[2019-03-16] MEDS ORDERED: FLU VAX QS 2019-20 (36MOS+)/PF 0.5 ML SYRINGE. VAX IM ONE (09:00)
[2019-03-16 11:04] VITALS: BP 102/66
[2019-03-16 14:13] LABS: CALCIUM 6.9 mg/dL (8.5-10.1); CREATININE 0.7 mg/dL (0.6-1.0); GFR 119.7
[2019-03-16 14:17] LABS: POTASSIUM 3.5 mmol/L (3.5-5.1)
--- NOTE | 2019-03-16 15:02 | HP ---
ADMIT DATE: 03/15/2019 HISTORY OF PRESENT ILLNESS: The patient is a 28-year-old -[place] female patient who came again complaining of epigastric abdominal pain with radiation to her chest and associated nausea. She was seen the day before for similar complaint and the ultrasound result showed no evidence of acute cholecystitis. The patient was noted to have elevated LFTs and lipase in the 400. The patient does report history of prior pancreatitis. She apparently drank a couple of beers a day before. Denied any trauma, denied any fever, chills or rigors. She was investigated in the Emergency Room. Her serum lipase was again found to be extremely high at 1078. Liver enzymes are all elevated and was again admitted with probably the fourth episode of acute pancreatitis. PAST MEDICAL HISTORY: Significant for hypertension, impaired glucose tolerance, hyperlipidemia, although she is not on any cholesterol lowering agent. She also has history of alcoholism and has at least 4 episodes of alcohol-induced pancreatitis and this is the fifth one. PAST SURGICAL HISTORY: Unremarkable. ALLERGIES: She has no known drug allergies. MEDICATIONS: She is on losartan 100 mg once a day, fluoxetine 40 mg once a day and triamterene/hydrochlorothiazide 37.5/25 one capsule once a day. FAMILY HISTORY: She is the only child, has no brothers or sisters. Her father is still alive at age of 63 and has hypertension. Her mother at age of 43 because of multiple sclerosis. SOCIAL HISTORY: She is , has 1 daughter. She does not smoke; however, she drinks alcohol and has had 4 previous episodes of pancreatitis related to alcohol. She does not use any drugs. She is currently [id number] mom. PHYSICAL EXAMINATION: GENERAL: On arrival to the Emergency Room, she looked well and was clearly in no apparent respiratory distress. No pallor, jaundice, cyanosis, or thyromegaly. No jugular venous distention. No lower limb edema. VITAL SIGNS: Her heart rate was 88, blood pressure was 122/72, temperature was 98.1, respiratory rate 20, and oxygen saturation was 98%. HEAD, EYES, EARS, NOSE AND THROAT: Showed normocephalic, atraumatic. NECK: Supple. HEART: Showed normal first and second heart sounds. No gallop, rub or murmur. CHEST: Clear to auscultation. No crepitation or rhonchi. ABDOMEN: Distended with tenderness mostly in the epigastric area. No guarding or rigidity. No organomegaly. All hernial orifice intact. Bowel sounds normal. NEUROLOGIC: She is awake, alert, responding appropriately. All cranial nerves intact. EXTREMITIES: She moves extremities without difficulty. She ambulates without assistance or assistive devices. LABORATORY DATA: Showed a white cell count 7300, hemoglobin 11, hematocrit 34, MCV 83, and platelet count 277,000 with normal manual differential. Serum sodium was 139, potassium 3.8, chloride 100, bicarbonate 26, anion gap of 13, BUN 10, creatinine 1, estimated GFR was 79 mL per minute. Her glucose 123, calcium was 7.8. Total bilirubin is normal. AST, ALT, alkaline phosphatase are elevated. CK, CK-MB and troponin are normal. Total protein was 7.7, albumin was 3.6. Her lipase was 1078. Her prothrombin time was 10.4, INR of 1, aPTT was 32. Urinalysis was essentially unremarkable and urine test was negative. Her CT scan of the chest, abdomen and pelvis showed that the patient has no evidence of pulmonary embolism. Her liver is diffusely hypodense compatible with fatty infiltration, the liver is enlarged, measuring about 25 cm cephalocaudal. Spleen is unremarkable. She has diffuse stranding and density in the peripancreatic fat appears greater than what was seen in the prior exam. Pancreas is mildly heterogenous in the density; however, there is no peripancreatic organized fluid collection or abscess is seen. Thickening of the left anterior pararenal fascia, adjacent fat stranding has increased since the prior study. No adrenal masses. Kidneys demonstrate symmetric enhancement without hydronephrosis. No calcified gallstones. Aorta is nonaneurysmal. No significant lymph node enlargement. No significant small bowel distention. No evidence of acute colitis. Structure which probably represents normal appendix identified. No significant pneumoperitoneum, ascites. Urinary bladder is not distended with no evidence of pelvic mass. Vertebral body heights and alignment are grossly unremarkable. No aggressive bone destruction. IMPRESSION: In summary, this is a 28-year-old -[place] female patient who was admitted again for the fifth episode of pancreatitis related to alcohol. We had counseled to stay away from this and also to stop her hydrochlorothiazide last time. Apparently, she continued to drink alcohol and she is going for rehabilitation on 03/24/2019 according to her. Plan is to continue to keep her n.p.o., continue with IV fluid, antiemetic and pain medication. We will monitor her lab work closely and repeat CT scan if she developed any worsening pain or fever. DESIREE PETESRON MD DR: LOUANN/chani JOB#: [id number] / [id number]
[2019-03-16 15:54] VITALS: BP 156/105
[2019-03-16 19:30] VITALS: BP 154/90
[2019-03-16] MEDS: ONDANSETRON PF 4 MG/2 ML VIAL. IVP PRN (19:44)
[2019-03-17] MEDS: ONDANSETRON PF 4 MG/2 ML VIAL. IVP PRN ×5 (00:53→23:19)
[2019-03-17 05:29] VITALS: BP 158/94
[2019-03-17 06:35] LABS: HEMATOCRIT 32.1 % (36.0-47.0); HEMOGLOBIN 10.5 g/dL (12.0-15.5); RED BLOOD COUNT 3.82 x10^6/uL (3.50-5.40); RED CELL DISTRIBUTION WIDTH 19.4 % (11.5-14.5); WHITE BLOOD COUNT 5.3 x10^3/uL (4.0-11.0)
[2019-03-17 06:51] LABS: ALBUMIN 3.1 g/dL (3.4-5.0); ALBUMIN/GLOBULIN RATIO 0.7 (1.0-1.7); CREATININE 0.8 mg/dL (0.6-1.0); GFR 102.6; POTASSIUM 3.6 mmol/L (3.5-5.1); TOTAL BILIRUBIN 0.5 mg/dL (0.2-1.0); TOTAL PROTEIN 7.3 g/dL (6.4-8.2)
[2019-03-17] MEDS: LOSARTAN 50 MG TABLET. PO SCH (11:45)
[2019-03-17] MEDS: FLUoxetine HCL 20 MG CAPSULE PO SCH (11:45)
[2019-03-17 11:48] VITALS: BP 143/99
[2019-03-17 15:38] VITALS: BP 171/90
[2019-03-17 20:19] VITALS: BP 144/92
[2019-03-17 23:16] VITALS: BP 158/88
--- NOTE | 2019-03-18 00:06 | PN ---
DATE: 03/17/2019 SUBJECTIVE: The patient is resting, slightly propped up in bed, no apparent distress. She is awake, alert. Did complain of mild discomfort, but no nausea, no vomiting, no chills, rigors or fever. Her lipase is down to 479. PHYSICAL EXAMINATION: GENERAL: When I examined her, she looked well and was clearly in no apparent respiratory distress. She is pale, no jaundice, cyanosis or thyromegaly. No jugular venous distention. No limb edema. VITAL SIGNS: Her heart rate was 74, blood pressure was 143/99, temperature was 98.7, respiratory rate was 18 and oxygen saturation was 99% on room air. HEAD, EYES, EARS, NOSE AND THROAT: Showed normocephalic, atraumatic. NECK: Supple. HEART: Showed normal first and second heart sounds. No gallop or murmur. CHEST: Clear to auscultation. No crepitation or rhonchi. ABDOMEN: Slightly distended, soft, nontender. No guarding or rigidity. No organomegaly. All hernial orifice intact. Bowel sounds normal. NEUROLOGIC: She was awake, alert, responding appropriately. All cranial nerves intact. Moves extremities without difficulty. She ambulates without assistance or assistive devices. Her intake over the last 24 hours was 1000. No output was recorded. LABORATORY DATA: Showed white cell count 5300, hemoglobin 10, hematocrit 30, MCV 84 and platelet count 252,000. Her serum sodium 137, potassium 3.6, chloride 102, bicarbonate 24, anion gap of 11, BUN 5, creatinine 0.8, estimated GFR was 102 mL per minute. Her glucose 125, calcium was 7. Total bilirubin is normal. AST, ALT, alkaline phosphatase are elevated. Total protein 7.3, albumin 3.1. Lipase was 479. ASSESSMENT: Acute alcohol-induced pancreatitis. This is actually the fifth episode. OTHER MEDICAL PROBLEMS: Include: A. Hypertension. B. Impaired glucose tolerance. C. Hyperlipidemia. D. Morbid obesity. PLAN: We will advance her diet today and if she remains pain free and her lipase normalizes, she can be discharged home tomorrow. She was counseled to quit alcohol on multiple occasions. DESIREE PETERSON MD DR: LOUANN/chani JOB#: [id number] / [id number]
[2019-03-18] MEDS: ONDANSETRON PF 4 MG/2 ML VIAL. IVP PRN (06:00)
[2019-03-18 06:27] VITALS: BP 159/102
[2019-03-18 06:50] LABS: HEMATOCRIT 32.7 % (36.0-47.0); HEMOGLOBIN 10.6 g/dL (12.0-15.5); RED BLOOD COUNT 3.85 x10^6/uL (3.50-5.40); RED CELL DISTRIBUTION WIDTH 19.7 % (11.5-14.5); WHITE BLOOD COUNT 5.3 x10^3/uL (4.0-11.0)
[2019-03-18 06:55] LABS: CALCIUM 7.3 mg/dL (8.5-10.1); CREATININE 0.8 mg/dL (0.6-1.0); GFR 102.6; POTASSIUM 3.4 mmol/L (3.5-5.1)
[2019-03-18] MEDS ORDERED: POTASSIUM CHLORIDE 20 MEQ TABLET.ER. PO ONE (08:00)
[2019-03-18] MEDS: FLUoxetine HCL 20 MG CAPSULE PO SCH (08:47)
[2019-03-18 08:48] VITALS: BP 159/102
[2019-03-18] MEDS: LOSARTAN 50 MG TABLET. PO SCH (08:48)
[2019-03-18 11:20] LABS: CALCIUM 7.4 mg/dL (8.5-10.1); CREATININE 0.9 mg/dL (0.6-1.0); GFR 89.6; POTASSIUM 3.8 mmol/L (3.5-5.1)
--- NOTE | 2019-03-18 16:40 | DS ---
DATE OF DISCHARGE: 03/18/2019 HOSPITAL COURSE: The patient is a 28-year-old -[place] female patient who was admitted yet again for the fifth episode of alcohol-induced pancreatitis. She presented to the Emergency Room with a complaint of epigastric abdominal pain that radiates through and through to the back associated with nausea and on admission her serum lipase was up to more than a 1000. We did initially keep her n.p.o. and start her eventually on a clear liquid diet and was advanced and the serum lipase came down steadily. She is feeling much better today, has been able to tolerate her diet without any problem. Has no nausea, no vomiting, no abdominal pain. Her serum lipase is down to 375. The patient was discharged home. She was counseled numerous times that she needed to stop drinking alcohol as this is an inciting agent for the last 5 admissions. I also asked her to discontinue her hydrochlorothiazide that might be contributing to that. PHYSICAL EXAMINATION: GENERAL: When I saw her this morning, she looked well and was clearly in no apparent respiratory distress. No pallor, jaundice, cyanosis or thyromegaly. No jugular venous distension. No limb edema. VITAL SIGNS: Her heart rate was 78, blood pressure was 159/102, temperature was 97.9, respiratory rate was 16 and oxygen saturation was 98%. HEAD, EYES, EARS, NOSE AND THROAT: Showed normocephalic, atraumatic. NECK: Supple. HEART: Showed normal first and second heart sounds. No gallop or murmur. CHEST: Clear to auscultation. No crepitation or rhonchi. ABDOMEN: Distended, soft, nontender. NEUROLOGIC: She is awake, alert, responding appropriately. All cranial nerves intact. She moves extremities without difficulty. She ambulates without assistance or assistive devices. Her intake over the last 24 hours and output were incompletely recorded. LABORATORY DATA: Her lab work this morning showed a white cell count 5300, hemoglobin 11, hematocrit 33, MCV 85 and platelet count of 277,000. His serum sodium was 138, potassium 3.4, chloride 102, bicarbonate 24, anion gap of 12, BUN 4, creatinine 0.8, estimated GFR was 102 mL per minute. Her glucose 134, calcium was 7.3. Serum lipase was 375 units per liter. DISCHARGE MEDICATIONS: She was discharged home to continue on fluoxetine 40 mg once a day, losartan potassium 100 mg daily. I gave her prescription for oxycodone 5 mg once every 6 hours as needed as well as clonazepam 1 mg once a day. Should follow with her primary care physician to clear instruction to avoid drinking alcohol. DESIREE PETERSON MD DR: LOUANN/chani JOB#: [id number] / [id number]
== END 2019-03-18 15:57 | disposition home or self-care (01) | DRG 440 ==
LOC: ER 14:29 → 1 SOUTH 17:53
PROVIDERS: ADMIT Internal Medicine; ATTEND Internal Medicine
DX: K85.20 Alcohol induced acute pancreatitis without necrosis or infection (principal); I10 Essential (primary) hypertension; E66.01 Morbid (severe) obesity due to excess calories; E78.5 Hyperlipidemia, unspecified; K76.0 Fatty (change of) liver, not elsewhere classified; Z82.0 Family history of epilepsy and other diseases of the nervous system; Z82.49 Family history of ischemic heart disease and other diseases of the circulatory system; F10.20 Alcohol dependence, uncomplicated; Z68.39 Body mass index [BMI] 39.0-39.9, adult; Z79.899 Other long term (current) drug therapy
CPT/HCPCS: 36415; 71275; 74177; 76705; 80048; 80053; 81001; 81025; 82553; 83690; 84484; 85025; 85027; 85610; 85730; 87086; 90471; 90686; 93005; 96374; 96375; J1885; J2405; J3010; J3490; Q9967; 99285-25; J7030

== ENCOUNTER 2019-09-20 08:47 | Emergency (ER) | payer MEDICARE ==
[~2019-09-20] VITALS: Ht 157.5 cm; Wt 88.0 kg
[~2019-09-20 08:47] MED LIST changes: +FLUO20CA20 PO; -FLUO20CA8 PO; +FLUO40CA2 PO
[2019-09-20] MEDS ORDERED: ONDANSETRON PF 4 MG/2 ML VIAL. ONE (09:12)
[2019-09-20] MEDS ORDERED: FAMOTIDINE 20 MG/2 ML VIAL ONE (09:12)
[2019-09-20] MEDS ORDERED: FAMOTIDINE 20 MG/2 ML VIAL IVP ONE (09:30)
[2019-09-20] MEDS ORDERED: ONDANSETRON PF 4 MG/2 ML VIAL. IVP ONE (09:30)
[2019-09-20 09:36] LABS: BASO # 0.1 x10^3/uL (0.0-0.2); BASO % 1 % (0-3); EOS % 0 % (0-3); HEMATOCRIT 36.3 % (36.0-47.0); HEMOGLOBIN 11.7 g/dL (12.0-15.5); LYMPH % 43 % (24-48); MEAN CORPUSCULAR HEMOGLOBIN 25 pg (25-35); MEAN CORPUSCULAR HGB CONC 32 g/dL (31-37); MEAN CORPUSCULAR VOLUME 78 fL (79-100); MONO # 0.4 x10^3/uL (0.0-1.1); MONO % 9 % (0-9); NEUT # 2.2 x10^3uL (1.8-7.7); NEUT % 46 % (31-73); PLATELET COUNT 289 x10^3/uL (140-400); RED BLOOD COUNT 4.66 x10^6/uL (3.50-5.40); RED CELL DISTRIBUTION WIDTH 21.2 % (11.5-14.5); WHITE BLOOD COUNT 4.8 x10^3/uL (4.0-11.0)
[2019-09-20 09:44] LABS: CALCIUM 7.5 mg/dL (8.5-10.1); CREATININE 0.6 mg/dL (0.6-1.0); POTASSIUM 3.4 mmol/L (3.5-5.1)
[2019-09-20] MEDS ORDERED: IV NORMAL SALINE 1,000ML 1,000 ML IV ONE (09:45)
[2019-09-20 09:47] LABS: PREG TEST PT QUAL NEGATIVE (NEG)
[2019-09-20] MEDS ORDERED: PROCHLORPERAZINE 10 MG/2 ML VIAL. ONE (09:48)
[2019-09-20 09:50] LABS: ALBUMIN 3.5 g/dL (3.4-5.0); ALBUMIN/GLOBULIN RATIO 0.7 (1.0-1.7); TOTAL BILIRUBIN 0.2 mg/dL (0.2-1.0); TOTAL PROTEIN 8.2 g/dL (6.4-8.2)
[2019-09-20] MEDS ORDERED: PROCHLORPERAZINE 10 MG/2 ML VIAL. IV ONE (10:00)
[2019-09-20 10:33] LABS: BILIRUBIN,URINE NEG (NEG); CLARITY,URINE HAZY; COLOR,URINE YELLOW; GLUCOSE,URINE NEG (NEG)
[2019-09-20 10:36] LABS: BACTERIA,URINE FEW /HPF (0-FEW); NITRITE,URINE NEG (NEG); SQUAMOUS EPITHELIAL CELL,UR MANY /LPF; UROBILINOGEN,URINE 0.2 mg/dL (0.2 mg/dL)
[2019-09-20] MEDS ORDERED: CONTRAST GIVEN MC PRN (10:45)
[2019-09-20 10:46] LABS: PLT ESTIMATE ADEQUATE (ADEQUATE)
[2019-09-20 10:47] LABS: TARGET CELLS FEW
[2019-09-20 10:51] LABS: ANISOCYTOSIS SLIGHT; MICROCYTOSIS SLIGHT
[2019-09-20] MEDS ORDERED: IOHEXOL 300 MG/ML 75 ML VIAL. IV ONE (11:00)
--- NOTE | 2019-09-20 11:30 | RAD ---
Examination: CT of the abdomen pelvis with IV contrast HISTORY: History of abdominal pain COMPARISON: 03/23/2019 TECHNIQUE: Axial CT images of the abdomen pelvis were performed with IV contrast. Coronal and sagittal reformats are performed Exposure: One or more of the following individualized dose reduction techniques were utilized for this examination: 1. Automated exposure control 2. Adjustment of the mA and/or kV according to patient size 3. Use of iterative reconstruction technique FINDINGS: The lung bases are clear. Small nodule or infiltrate measuring 7 mm identified in the left lingula of the lung similar to prior exam. No evidence of free air identified in the abdomen. Diffuse decreased attenuation noted throughout the liver likely hepatic steatosis. There is hypodensity identified in the left lobe of the liver likely focal fat. The gallbladder is mildly distended. The visualized spleen, adrenals grossly appears unremarkable. The stomach is minimally distended. There is inflammatory fat stranding identified about the pancreas and the second and third part of the duodenum with fluid. The small bowel is nondilated. Feces and gas noted in the colon. The appendix is normal. The bilateral kidneys enhance symmetrically. The aorta grossly appears unremarkable. Urinary bladder is mildly distended. No evidence of lytic bony destructive lesion. IMPRESSION: 1. Inflammatory fat stranding and fluid identified about the pancreas and second and third part of the duodenum. Differential includes acute pancreatitis/duodenitis. Correlate with lab values. 2. Hepatic steatosis. Electronically signed by: Juvenal Mayers MD (09/20/2019 11:27 AM) [id number]
[2019-09-20] MEDS ORDERED: HYDR-3165 PO (12:01)
[2019-09-20] MEDS ORDERED: PROC10TA57 PO (12:01)
[2019-09-20 12:13] VITALS: BP 139/75
[2019-09-20] MEDS ORDERED: oxyCODONE/APAP 10/325 1 TAB TABLET PO ONE (12:45)
--- NOTE | 2019-09-20 14:20 | PHYS DOC ---
Past History Past Medical History: Hypertension, Pancreatitis Past Surgical History: No Surgical History Alcohol Use: Occasionally Drug Use: None Social History Narrative: hx of meth and marijuana use; none for 5 years General Adult EDM: Chief Complaint: ABDOMINAL PAIN HPI: HPI: Patient is a 28-year-old female with history of chronic pancreatitis, polysubstance abuse and chronic alcohol use who presents with chief epigastric pain with nausea and emesis 1. Symptom SET was yesterday. Symptoms are similar to prior episodes of pancreatitis. It is described as sharp, rated moderate to severe and is nonradiating. Denies hematemesis coffee-ground emesis, melena or hematochezia. No flank pain. No fever chills or sweats. No medications or therapy sticking prior to ED arrival. Patient reports recent alcohol use. [] Review of Systems: Review of Systems: Review symptoms as per history of present illness. All other review symptoms are negative. Heart Score: Risk Factors: Risk Factors: DM, Current or recent (<one month) smoker, HTN, HLP, family history of CAD, obesity. Risk Scores: Score 0 - 3: 2.5% MACE over next 6 weeks - Discharge Home Score 4 - 6: 20.3% MACE over next 6 weeks - Admit for Clinical Observation Score 7 - 10: 72.7% MACE over next 6 weeks - Early Invasive Strategies Current Medications: Current Meds: Current Medications Medications (Trade) Dose Ordered Sig/Luis Felipe Start Time Stop Time Status Last Admin Dose Admin Famotidine (Pepcid Vial) 20 mg 1X ONCE 09/20/19 09:30 09/20/19 09:31 DC 09/20/19 09:28 20 MG Fentanyl Citrate (Fentanyl 2ml Vial) 100 mcg STK-MED ONCE 09/20/19 10:31 09/20/19 10:31 DC Info (Do NOT chart on this entry -- for MONITORING) 1 each PRN DAILY PRN 09/20/19 10:45 09/20/19 12:14 DC Iohexol (Omnipaque 300 Mg/ml) 75 ml 1X ONCE 09/20/19 11:00 09/20/19 11:01 DC Ondansetron HCl (Zofran) 4 mg 1X ONCE 09/20/19 09:30 09/20/19 09:31 DC 09/20/19 09:29 4 MG Oxycodone/ Acetaminophen (Percocet 10/325) 1 tab 1X ONCE 09/20/19 12:45 09/20/19 12:46 DC 09/20/19 12:44 1 TAB Prochlorperazine Edisylate (Compazine) 10 mg STK-MED ONCE 09/20/19 09:48 09/20/19 09:48 DC Sodium Chloride 1,000 ml @ 1,000 mls/hr 1X ONCE 09/20/19 09:45 09/20/19 10:44 DC 09/20/19 09:51 1,000 MLS/HR Allergies: Allergies: Allergies Coded Allergies Type Severity Reaction Last Updated Verified No Known Drug Allergies 09/20/19 No Physical Exam: PE: Constitutional: Well developed, well nourished, no acute distress, non-toxic appearance. [] HENT: Normocephalic, atraumatic, bilateral external ears normal, oropharynx moist, nose normal. [] Eyes: PERRLA, EOMI, conjunctiva normal, no discharge. [] Neck: Normal range of motion, no tenderness, supple, no stridor. [] Cardiovascular:Heart rate regular rhythm, no murmur [] Lungs & Thorax: Bilateral breath sounds clear to auscultation [] Abdomen: Bowel sounds normal, soft, mild epigastric pain/tenderness.. [] Skin: Warm, dry, no erythema, no rash. [] Back: No tenderness. [] Extremities: No tenderness, no edema. [] Neurologic: Alert and oriented X 3, normal motor function, normal sensory function, no focal deficits noted. [] Psychologic: Affect normal, judgement normal, mood normal. [] Current Patient Data: Labs: Laboratory Tests Test 09/20/19 09:15 09/20/19 09:18 09/20/19 09:51 White Blood Count 4.8 x10^3/uL (4.0-11.0) Red Blood Count 4.66 x10^6/uL (3.50-5.40) Hemoglobin 11.7 g/dL (12.0-15.5) L Hematocrit 36.3 % (36.0-47.0) Mean Corpuscular Volume 78 fL (79-100) L Mean Corpuscular Hemoglobin 25 pg (25-35) Mean Corpuscular Hemoglobin Concent 32 g/dL (31-37) Red Cell Distribution Width 21.2 % (11.5-14.5) H Platelet Count 289 x10^3/uL (140-400) Neutrophils (%) (Auto) 46 % (31-73) Lymphocytes (%) (Auto) 43 % (24-48) Monocytes (%) (Auto) 9 % (0-9) Eosinophils (%) (Auto) 0 % (0-3) Basophils (%) (Auto) 1 % (0-3) Neutrophils # (Auto) 2.2 x10^3uL (1.8-7.7) Lymphocytes # (Auto) 2.0 x10^3/uL (1.0-4.8) Monocytes # (Auto) 0.4 x10^3/uL (0.0-1.1) Eosinophils # (Auto) 0.0 x10^3/uL (0.0-0.7) Basophils # (Auto) 0.1 x10^3/uL (0.0-0.2) Sodium Level 138 mmol/L (136-145) Potassium Level 3.4 mmol/L (3.5-5.1) L Chloride Level 101 mmol/L (98-107) Carbon Dioxide Level 25 mmol/L (21-32) Anion Gap 12 (6-14) Blood Urea Nitrogen 12 mg/dL (7-20) Creatinine 0.6 mg/dL (0.6-1.0) Estimated GFR (Cockcroft-Gault) 143.0 BUN/Creatinine Ratio 20 (6-20) Glucose Level 114 mg/dL (70-99) H Lactic Acid Level 2.0 mmol/L (0.4-2.0) Calcium Level 7.5 mg/dL (8.5-10.1) L Total Bilirubin 0.2 mg/dL (0.2-1.0) Aspartate Amino Transferase (AST) 39 U/L (15-37) H Alanine Aminotransferase (ALT) 34 U/L (14-59) Alkaline Phosphatase 115 U/L (46-116) Total Protein 8.2 g/dL (6.4-8.2) Albumin 3.5 g/dL (3.4-5.0) Albumin/Globulin Ratio 0.7 (1.0-1.7) L Lipase 481 U/L (73-393) H Serum Test, Qualitative Negative (NEG) Platelet Estimate Adequate (ADEQUATE) Anisocytosis Slight Microcytosis Slight Target Cells Few Urine Collection Type Unknown Urine Color Yellow Urine Clarity Hazy Urine pH 8.0 Urine Specific [place] 1.020 Urine Protein Trace (NEG-TRACE) Urine Glucose (UA) Neg mg/dL (NEG) Urine Ketones (Stick) Neg mg/dL (NEG) Urine Blood Mod (NEG) Urine Nitrite Neg (NEG) Urine Bilirubin Neg (NEG) Urine Urobilinogen Dipstick 0.2 mg/dL (0.2 mg/dL) Urine Leukocyte Esterase Neg (NEG) Urine RBC 11-20 /HPF (0-2) Urine WBC 1-4 /HPF (0-4) Urine Squamous Epithelial Cells Many /LPF Urine Bacteria Few /HPF (0-FEW) Vital Signs: Vital Signs Date Time Temp Pulse Resp B/P (MAP) Pulse Ox O2 Delivery O2 Flow Rate FiO2 09/20/19 12:13 88 16 139/75 (96) 99 Room Air 09/20/19 08:59 98.9 EKG: EKG: [] Radiology/Procedures: Radiology/Procedures: [CT abdomen pelvis: IMPRESSION: 1. Inflammatory fat stranding and fluid identified about the pancreas and second and third part of the duodenum. Differential includes acute pancreatitis/duodenitis. Correlate with lab values. 2. Hepatic steatosis. Course & Med Decision Making: Course & Med Decision Making Pertinent Labs and Imaging studies reviewed. (See chart for details) [Symptoms significantly improved with treatment. Patient able to her oral intake and requests discharge home. Recommend supportive care, watchful waiting and PCP follow-up. Strict return cautions reviewed. Patient verbalizes understanding agreement discharge instructions prior to departure.] Surjit Disclaimer: Surjit Disclaimer: This electronic medical record was generated, in whole or in part, using a voice recognition dictation system. Departure Departure: Impression: Primary Impression: Pancreatitis Disposition: 01 HOME, SELF-CARE Condition: STABLE Additional Instructions: Your abdominal pain is likely caused by pancreatitis. Avoid alcohol and drink clear liquids only for the next 24-48 hours. Then gradually progress to bland diet as tolerated. Take pain and nausea medication as directed. Return to the ED if new or worsening symptoms. Scripts Hydrocodone Bit/Acetaminophen (NORCO 5-325 TABLET) 1 Each Tablet 1 TAB PO BID, #5 TAB Prov: ZENIA VALDEZ DO 09/20/19 Prochlorperazine Maleate (Compazine) 10 Mg Tablet 1 TAB PO Q6HRS for 4 Days, #12 TAB 0 Refills Prov: ZENIA VALDEZ DO 09/20/19 ZENIA VALDEZ DO Sep 20, 2019 14:20
== END 2019-09-20 12:14 | disposition home or self-care (01) ==
LOC: ER 08:47
DX: K86.0 Alcohol-induced chronic pancreatitis (principal); R10.13 Epigastric pain; R11.2 Nausea with vomiting, unspecified; I10 Essential (primary) hypertension; F12.90 Cannabis use, unspecified, uncomplicated
CPT/HCPCS: 36415; 74177; 80053; 81001; 83605; 83690; 84703; 85025; 96361; 96374; 96375; 99285; J0780; J2405; J3010; J3490; J7030

== ENCOUNTER 2019-11-17 08:55 | Inpatient (IN) | payer MEDICARE ==
[~2019-11-17] VITALS: Ht 177.8 cm; Wt 86.6 kg
[~2019-11-17 08:55] MED LIST changes: +HYDR-3165 PO; +PROC10TA57 PO
[2019-11-17] MEDS ORDERED: ONDANSETRON PF 4 MG/2 ML VIAL. IVP ONE (09:15)
[2019-11-17] MEDS ORDERED: IV NORMAL SALINE 1,000ML 1,000 ML IV ONE (09:15)
--- NOTE | 2019-11-17 09:27 | PHYS DOC ---
Past History Past Medical History: Hypertension, Pancreatitis Past Surgical History: No Surgical History Alcohol Use: Occasionally Drug Use: None General Adult EDM: Chief Complaint: NAUSEA/VOMITING/DIARRHEA HPI: HPI: 28-year-old female presents with epigastric abdominal pain. The pain is a deep cramping sensation. It is moderate to severe in intensity. The patient's pain started last night. She also had a couple episodes of vomiting this morning. She has a history of pancreatitis. She continues to drink alcohol. This pain feels very similar to her previous pancreatitis. She denies fever or chills. Review of Systems: Review of Systems: Constitutional: Denies fever or chills Eyes: Denies change in visual acuity HENT: Denies nasal congestion or sore throat Respiratory: Denies cough or shortness of breath Cardiovascular: Denies chest pain or edema GI: Epigastric abdominal pain, nausea, vomiting. Denies bloody stools or diarrhea : Denies dysuria Musculoskeletal: Denies back pain or joint pain Integument: Denies rash Neurologic: Denies headache, focal weakness or sensory changes Endocrine: Denies polyuria or polydipsia Lymphatic: Denies swollen glands Psychiatric: Denies depression or anxiety Heart Score: Risk Factors: Risk Factors: DM, Current or recent (<one month) smoker, HTN, HLP, family history of CAD, obesity. Risk Scores: Score 0 - 3: 2.5% MACE over next 6 weeks - Discharge Home Score 4 - 6: 20.3% MACE over next 6 weeks - Admit for Clinical Observation Score 7 - 10: 72.7% MACE over next 6 weeks - Early Invasive Strategies Current Medications: Current Meds: Current Medications Medications (Trade) Dose Ordered Sig/[facility] Start Time Stop Time Status Last Admin Dose Admin Ondansetron HCl (Zofran) 4 mg 1X ONCE 11/17/19 09:15 11/17/19 09:16 DC Sodium Chloride 1,000 ml @ 1,000 mls/hr 1X ONCE 11/17/19 09:15 11/17/19 10:14 Allergies: Allergies: Allergies Coded Allergies Type Severity Reaction Last Updated Verified No Known Drug Allergies 09/20/19 No Physical Exam: PE: Constitutional: Well developed, well nourished, no acute distress, non-toxic appearance. [] HENT: Normocephalic, atraumatic, bilateral external ears normal, oropharynx moist, no oral exudates, nose normal. [] Eyes: PERRLA, EOMI, conjunctiva normal, no discharge. [] Neck: Normal range of motion, no tenderness, supple, no stridor. [] Cardiovascular: Heart rate regular rhythm, no murmur [] Lungs & Thorax: Bilateral breath sounds clear to auscultation [] Abdomen: Bowel sounds normal, soft, epigastric tenderness, no masses, no p ulsatile masses. [] Skin: Warm, dry, no erythema, no rash. [] Back: No tenderness, no CVA tenderness. [] Extremities: No tenderness, no cyanosis, no clubbing, ROM intact, no edema. [] Neurologic: Alert and oriented X 3, normal motor function, normal sensory function, no focal deficits noted. [] Psychologic: Affect normal, judgement normal, mood normal. [] EKG: EKG: [] Radiology/Procedures: Radiology/Procedures: [] Impressions: Exam: CT abdomen/pelvis with intravenous contrast Indication: Epigastric pain, history of pancreatitis Comparison: CT abdomen and pelvis 09/20/2019 Technique: Helical CT imaging performed of the abdomen and pelvis after the intravenous administration of 75 mL Omnipaque 300 intravenous contrast. Sagittal and coronal reformats were obtained. One or more of the following individualized dose reduction techniques were utilized for this examination: 1. Automated exposure control 2. Adjustment of the mA and/or kV according to patient size 3. Use of iterative reconstruction technique. Findings: Lower chest: The lung bases are clear. Heart is normal in size. Liver: The liver is enlarged measuring 21 cm craniocaudally and mildly decreased in attenuation. Focal fat along the falciform ligament is unchanged. Gallbladder/Biliary Tree: Normal. Pancreas: The pancreas is edematous and there is mild peripancreatic fluid/fat stranding, compatible with acute pancreatitis. The pancreas enhances homogeneously. No main duct dilatation. No organized fluid collection. Spleen: Normal. Adrenal Glands: Normal. Kidneys/Ureters/Bladder: Kidneys, ureters, and bladder are unremarkable. No hydronephrosis. Reproductive Organs: Uterus is retroverted. Ovaries are normal in appearance for age. Stomach, small bowel, and colon: The stomach, small bowel, and colon are normal. Appendix is normal. Vasculature: Abdominal aorta and inferior vena cava are patent. Lymph Nodes: No lymphadenopathy. Peritoneum and retroperitoneum: Peripancreatic fluid, as above. No free air. Bones: No acute osseous abnormality. Impression: 1. Acute pancreatitis without evidence of complication. 2. Mild hepatomegaly and hepatic steatosis. Electronically signed by: Valentina Cantor MD (11/17/2019 11:12 AM) [id number] DICTATED AND SIGNED BY: VALENTINA CANTOR MD DATE: 11/17/19 1112 CC: ZENIA HANCOCK DO; PCP,NO ~ Course & Med Decision Making: Course & Med Decision Making Pertinent Labs and Imaging studies reviewed. (See chart for details) The patient's labs are unremarkable except for a lipase of over 700. This is an increase from previous lipase levels in her chart. Her urinalysis is positive for alcohol and methamphetamines. The CT of the abdomen and pelvis also shows pancreatitis without complication. I will admit the patient to the hospital for further management as this may be worsening. I spoke with Dr. Brown, the hospitalist and he has accepted the patient for admission. [] Surjit Disclaimer: Surjit Disclaimer: This electronic medical record was generated, in whole or in part, using a voice recognition dictation system. Departure Departure: Impression: Primary Impression: Alcohol-induced pancreatitis Qualified Codes: K85.20 - Alcohol induced acute pancreatitis without necrosis or infection Disposition: HOME/RESIDENCE PRIOR TO ADM Condition: STABLE Referrals: PCP,NO (PCP) Justification of Admission: Justification of Admission: Justification of Admission Dx: Yes Comments: Acute pancreatitis, alcohol induced ZENIA HANCOCK DO Nov 17, 2019 09:27
[2019-11-17 09:29] LABS: BASO # 0.1 x10^3/uL (0.0-0.2); BASO % 1 % (0-3); EOS % 0 % (0-3); HEMATOCRIT 37.9 % (36.0-47.0); HEMOGLOBIN 12.4 g/dL (12.0-15.5); LYMPH # 1.8 x10^3/uL (1.0-4.8); LYMPH % 28 % (24-48); MEAN CORPUSCULAR HEMOGLOBIN 26 pg (25-35); MEAN CORPUSCULAR HGB CONC 33 g/dL (31-37); MEAN CORPUSCULAR VOLUME 80 fL (79-100); MONO # 0.5 x10^3/uL (0.0-1.1); MONO % 8 % (0-9); NEUT # 4.1 x10^3uL (1.8-7.7); NEUT % 63 % (31-73); PLATELET COUNT 280 x10^3/uL (140-400); RED BLOOD COUNT 4.74 x10^6/uL (3.50-5.40); RED CELL DISTRIBUTION WIDTH 21.2 % (11.5-14.5); WHITE BLOOD COUNT 6.6 x10^3/uL (4.0-11.0)
[2019-11-17] MEDS ORDERED: KETOROLAC 30 MG/ML VIAL. IVP ONE (09:30)
[2019-11-17] MEDS ORDERED: diphenhydrAMINE 50 MG/ML VIAL IVP ONE (09:30)
[2019-11-17] MEDS ORDERED: IOHEXOL 300 MG/ML 75 ML VIAL. IV ONE (09:45)
[2019-11-17 10:20] LABS: CALCIUM 7.9 mg/dL (8.5-10.1); CREATININE 0.8 mg/dL (0.6-1.0); GFR 102.6; POTASSIUM 3.8 mmol/L (3.5-5.1)
[2019-11-17 10:24] LABS: PLT ESTIMATE ADEQUATE (ADEQUATE)
[2019-11-17 10:25] LABS: ALBUMIN 3.2 g/dL (3.4-5.0); ALBUMIN/GLOBULIN RATIO 0.7 (1.0-1.7); TOTAL BILIRUBIN 0.4 mg/dL (0.2-1.0); TOTAL PROTEIN 7.6 g/dL (6.4-8.2)
[2019-11-17 10:25] LABS: ANISOCYTOSIS SLIGHT; POLYCHROMASIA PRESENT
[2019-11-17 10:26] LABS: MICROCYTOSIS SLIGHT; OVALOCYTES OCC
[2019-11-17 10:42] LABS: BARBITURATES NEG (NEG); BENZODIAZEPINES NEG (NEG); CANNABINOIDS NEG (NEG); COCAINE NEG (NEG); METHADONE NEG (NEG); OPIATES NEG (NEG); PHENCYCLIDINE NEG (NEG)
[2019-11-17 10:46] LABS: BILIRUBIN,URINE NEG (NEG); CLARITY,URINE HAZY; COLOR,URINE YELLOW; GLUCOSE,URINE NEG (NEG); NITRITE,URINE NEG (NEG); UROBILINOGEN,URINE 0.2 mg/dL (0.2 mg/dL)
[2019-11-17 10:47] LABS: BACTERIA,URINE FEW /HPF (0-FEW); RBC,URINE RARE /HPF (0-2); SQUAMOUS EPITHELIAL CELL,UR MOD /LPF
[2019-11-17 10:48] LABS: AMPHETAMINE/METHAMPHETAMINE POS (NEG)
--- NOTE | 2019-11-17 11:15 | RAD ---
Exam: CT abdomen/pelvis with intravenous contrast Indication: Epigastric pain, history of pancreatitis Comparison: CT abdomen and pelvis 09/20/2019 Technique: Helical CT imaging performed of the abdomen and pelvis after the intravenous administration of 75 mL Omnipaque 300 intravenous contrast. Sagittal and coronal reformats were obtained. One or more of the following individualized dose reduction techniques were utilized for this examination: 1. Automated exposure control 2. Adjustment of the mA and/or kV according to patient size 3. Use of iterative reconstruction technique. Findings: Lower chest: The lung bases are clear. Heart is normal in size. Liver: The liver is enlarged measuring 21 cm craniocaudally and mildly decreased in attenuation. Focal fat along the falciform ligament is unchanged. Gallbladder/Biliary Tree: Normal. Pancreas: The pancreas is edematous and there is mild peripancreatic fluid/fat stranding, compatible with acute pancreatitis. The pancreas enhances homogeneously. No main duct dilatation. No organized fluid collection. Spleen: Normal. Adrenal Glands: Normal. Kidneys/Ureters/Bladder: Kidneys, ureters, and bladder are unremarkable. No hydronephrosis. Reproductive Organs: Uterus is retroverted. Ovaries are normal in appearance for age. Stomach, small bowel, and colon: The stomach, small bowel, and colon are normal. Appendix is normal. Vasculature: Abdominal aorta and inferior vena cava are patent. Lymph Nodes: No lymphadenopathy. Peritoneum and retroperitoneum: Peripancreatic fluid, as above. No free air. Bones: No acute osseous abnormality. Impression: 1. Acute pancreatitis without evidence of complication. 2. Mild hepatomegaly and hepatic steatosis. Electronically signed by: Valentina Cantor MD (11/17/2019 11:12 AM) [place] [id number]
[2019-11-17] MEDS ORDERED: IV DEXTROSE 5% - 0.9 % NACL 1,000 ML IV ONE (11:45)
[2019-11-17] MEDS ORDERED: MORPHINE SULFATE 2 MG/ML DISP.SYRIN. ONE (12:24)
[2019-11-17] MEDS ORDERED: MORPHINE SULFATE 2 MG/ML DISP.SYRIN. IV ONE (12:30)
--- NOTE | 2019-11-17 12:37 | HP ---
ADMIT DATE: 11/17/2019 ATTENDING PHYSICIAN: Dr. Velazquez CHIEF COMPLAINT: Abdominal pain and nausea. HISTORY OF PRESENT ILLNESS: The patient is a 28-year-old female admitted through the ED with a 1-day history of severe abdominal cramping, nausea, vomiting and not feeling well. No fevers or chills. Unfortunately, she continues to drink alcohol on a regular basis. She has had previous episode, most recently September of this year with episodes of alcoholic pancreatitis. In the ED today, evaluation showed elevated lipase of 749. The CT of the abdomen and pelvis shows acute pancreatitis without evidence of complication, pseudocyst or phlegmon. She has mild hepatomegaly and hepatic steatosis. She is admitted then with symptomatic pancreatitis related to alcohol. She has had previous admissions with alcohol-related issues. PAST MEDICAL HISTORY: Significant for chronic alcoholism, most likely underlying depression. ALLERGIES: She has no known drug allergies. CURRENT MEDICATIONS: No scheduled meds. FAMILY HISTORY: Her mom at age 42 of complications of multiple sclerosis. Father is alive at age 58. He lives with her. She has a 3-year-old child, currently cared for by the grandfather. SOCIAL HISTORY: She does not smoke. Alcohol use is noted. She does not use any oral contraceptives. She is not sexually active according to the patient. REVIEW OF SYSTEMS: Significant for the GI symptoms, epigastric pain, nausea, dry heaves. No recent exposure, fevers, chills, sweats or bloody stool. All other systems reviewed and determined to be negative. PHYSICAL EXAMINATION: GENERAL: When I saw her, this is a pleasant young female. INITIAL VITAL SIGNS: Showed a blood pressure of 133/90, her pulse is 64 and regular, temperature 98.1 degrees Fahrenheit, and her oxygen saturation is 98% on room air. HEENT: The head is without trauma. The pupils are reactive. The sclerae are nonicteric. The oropharynx is clear. NECK: Supple. There are no bruits. LUNGS: Otherwise clear. CARDIOVASCULAR: Showed regular heart tones. No obvious gallops. Peripheral pulses are palpable and full. ABDOMEN: Diffusely tender to palpation. There is some guarding, but no rebound tenderness. Bowel sounds are hypoactive. There are no masses palpated. EXTREMITIES: Showed no cyanosis or edema. NEUROLOGIC: Focally intact. Speech is fluent. No focal deficit. SKIN: Warm and dry. IMAGING STUDIES: As noted on the CT. LABORATORY DATA: Her lab work showed a hemoglobin of 12.4 g/dL with white count of 6600. Her chemistry panel showed sodium 139 mEq/L, potassium 3.8 mEq, creatinine of 0.8 mg/dL, nonfasting blood sugar 138 mg/dL. A serum lipase of 749. ASSESSMENT: A 28-year-old female with: 1. Alcoholic pancreatitis. 2. Associated nausea, vomiting and abdominal pain. 3. Chronic alcoholism. 4. Most likely underlying depression. PLAN: 1. Admit to the inpatient unit. 2. N.p.o. except for ice chips. 3. IV hydration. 4. Pain and nausea control. 5. We shall monitor for signs of alcohol withdrawal. MARCIA VELAZQUEZ MD DR: MARCIN/chani JOB#: [id number] / [id number]
[2019-11-17] MEDS ORDERED: CLON1TAB23 PO (12:41)
[2019-11-17] MEDS ORDERED: LOSA100T14 PO (12:57)
[2019-11-17] MEDS ORDERED: AMLO10TA8 PO (12:57)
[2019-11-17 13:06] VITALS: BP 110/71
[2019-11-17] MEDS: MORPHINE SULFATE 4 MG/ML DISP.SYRIN. IV PRN ×4 (13:28→18:10)
[2019-11-17] MEDS: IV DEXTROSE 5% - 0.9 % NACL 1,000 ML IV SCH (13:28)
[2019-11-17] MEDS: ONDANSETRON PF 4 MG/2 ML VIAL. IVP PRN (16:47)
[2019-11-17] MEDS ORDERED: fentaNYL PF 250 MCG/5 ML VIAL IV PRN (18:15)
[2019-11-17 20:09] VITALS: BP 176/124
[2019-11-17 20:18] VITALS: BP 161/111
[2019-11-17 23:43] VITALS: BP 166/121
[2019-11-18] VITALS (8 sets, daily range): BP systolic 154–187; BP diastolic 98–132
[2019-11-18] MEDS: IV DEXTROSE 5% - 0.9 % NACL 1,000 ML IV SCH ×2 (02:29→19:08)
[2019-11-18] MEDS ORDERED: cloNIDine TTS-3 1 PATCH PATCH TD SCH (09:00)
--- NOTE | 2019-11-18 09:42 | PN ---
DATE: 11/18/2019 SUBJECTIVE: Moderate pain; however, when I walked in the room, she seemed to be comfortable. She was asking for her narcotics around the clock. Blood pressure remains high, most likely due to her chronic alcohol use as well as some withdrawal symptoms. She is not having any impending seizures or DTs. It turns out [facility]. OBJECTIVE FINDINGS: VITAL SIGNS: Blood pressure has fluctuated between 160 and 180 systolic, heart rate 73 and regular. She is afebrile. Oxygen saturation 98% on room air. HEENT: Head is without trauma. Pupils are reactive. Sclerae nonicteric. Oropharynx clear. NECK: Supple. LUNGS: Clear. CARDIOVASCULAR: Shows regular heart tones. ABDOMEN: Minimal tenderness on palpation. No guarding or rebound tenderness. Bowel sounds were hypoactive. EXTREMITIES: Show trace edema. NEUROLOGIC FINDINGS: Focally intact. ASSESSMENT: 1. A 28-year-old female with alcoholic pancreatitis. 2. Chronic alcoholism. 3. Labile hypertension due to pain. 4. Underlying depression with anxiety. PLAN: 1. We will keep her n.p.o. She will try some clear liquids today. 2. Scheduled fentanyl p.r.n. pain. I had a very long, but nice discussion with the patient indicating that I cannot increase the dose. I do not think she needs a higher dose. 3. Continue Ativan p.r.n. agitation. 4. Add clonidine-TTS 3 patch weekly for blood pressure control. 5. Follow up blood pressure checks. 6. We will advance her diet as tolerated. We will try clear liquids today. MARCIA VELAZQUEZ MD DR: MARCIN/chani JOB#: [id number] / [id number]
[2019-11-18] MEDS: ONDANSETRON PF 4 MG/2 ML VIAL. IVP PRN (09:52)
[2019-11-19 05:40] VITALS: BP 154/105
[2019-11-19 09:06] LABS: BASO % 1 % (0-3); EOS # 0.2 x10^3/uL (0.0-0.7); EOS % 3 % (0-3); HEMATOCRIT 33.9 % (36.0-47.0); HEMOGLOBIN 10.8 g/dL (12.0-15.5); LYMPH # 2.4 x10^3/uL (1.0-4.8); LYMPH % 37 % (24-48); MEAN CORPUSCULAR HEMOGLOBIN 26 pg (25-35); MEAN CORPUSCULAR HGB CONC 32 g/dL (31-37); MEAN CORPUSCULAR VOLUME 82 fL (79-100); MONO # 0.4 x10^3/uL (0.0-1.1); MONO % 7 % (0-9); NEUT # 3.3 x10^3uL (1.8-7.7); NEUT % 52 % (31-73); PLATELET COUNT 226 x10^3/uL (140-400); RED BLOOD COUNT 4.16 x10^6/uL (3.50-5.40); RED CELL DISTRIBUTION WIDTH 19.6 % (11.5-14.5); WHITE BLOOD COUNT 6.3 x10^3/uL (4.0-11.0)
[2019-11-19 09:20] LABS: ALBUMIN 2.6 g/dL (3.4-5.0); ALBUMIN/GLOBULIN RATIO 0.7 (1.0-1.7); CALCIUM 6.8 mg/dL (8.5-10.1); CREATININE 1.1 mg/dL (0.6-1.0); GFR 71.1; TOTAL BILIRUBIN 0.5 mg/dL (0.2-1.0); TOTAL PROTEIN 6.6 g/dL (6.4-8.2)
[2019-11-19 09:26] LABS: POTASSIUM 2.8 mmol/L (3.5-5.1)
[2019-11-19] MEDS: POTASSIUM BICARB 20 MEQ EFFERVESCENT TABLET. FT SCH ×2 (09:33→13:17)
[2019-11-19] MEDS: IV DEXTROSE 5% - 0.9 % NACL 1,000 ML IV SCH (10:36)
[2019-11-19 10:57] VITALS: BP 155/95
[2019-11-19] MEDS ORDERED: POTASSIUM CHLORIDE 20 MEQ TABLET.ER. PO ONE (13:15)
[2019-11-19] MEDS ORDERED: oxyCODONE IR 5 MG TABLET PO PRN (13:15)
[2019-11-19 15:41] LABS: CALCIUM 7.4 mg/dL (8.5-10.1); CREATININE 0.7 mg/dL (0.6-1.0); GFR 119.7; POTASSIUM 4.2 mmol/L (3.5-5.1)
[2019-11-19] MEDS ORDERED: OXYC5TAB4 PO (16:05)
--- NOTE | 2019-11-19 16:27 | DS ---
DATE OF DISCHARGE: 11/19/2019 HOSPITAL COURSE: The patient is a 28-year-old female patient who yet again came with another episode of abdominal pain, nausea and vomiting, not feeling well. In the Emergency Room, she was investigated and was found to have markedly elevated serum lipase at 749. CT abdomen and pelvis shows acute pancreatitis without evidence of complication suggestive of phlegmon. She does have mild hepatic steatosis. She was admitted, started on IV fluid, kept n.p.o. and continued on IV pain medication. Her initial lab work showed that her tox screen was positive for amphetamine and alcohol and she has multiple admissions with similar presentation and we have had multiple discussions about needs to quit drinking alcohol. In any case, the patient's enzymes have improved. Her serum lipase came down from 749 to 150. Her potassium was low this morning, so we replenished that. We gave her a total of 80 mEq of potassium chloride and her labwork this afternoon showed a serum potassium is up to 4.2. She was started on a clear liquid diet and advanced and tolerated a regular diet and a decision was made to discharge her home, to continue on oral pain medication and again advised to quit alcohol as she has been admitted probably about 4 or 5 times with the same presentation with alcohol-induced pancreatitis. PHYSICAL EXAMINATION: GENERAL: When I saw her this afternoon, she looked well and was clearly in no apparent respiratory distress. Slightly pale. No jaundice, cyanosis, or thyromegaly. No jugular venous distention or limb edema. VITAL SIGNS: Her heart rate was 64, blood pressure 155/95, temperature 98.4, respiratory rate 20, and oxygen saturation was 96%. HEAD, EYES, EARS, NOSE AND THROAT: Showed normocephalic, atraumatic. NECK: Supple. HEART: Showed normal first and second heart sounds with no gallop, rub or murmur. CHEST: Clear to auscultation. No crepitation or rhonchi. ABDOMEN: Distended, soft, nontender. NEUROLOGIC: She is awake, alert, responding appropriately. All cranial nerves intact. EXTREMITIES: She moves extremities without difficulty. She ambulates without assistance or assistive devices. Her intake was 2600, no output was recorded. LABORATORY DATA: This morning showed a white cell count 6300, hemoglobin 11, hematocrit 33, MCV 82, and platelet count 226,000. Her serum sodium was 136, potassium 4.2, chloride 102, bicarbonate 27, anion gap of 7, BUN 8, creatinine 0.7, estimated GFR was 119 mL per minute. Her glucose 118, calcium was 7.4. DISCHARGE MEDICATIONS: The patient was discharged home to continue on amlodipine 10 mg once a day, clonazepam 1 mg 3 times a day, losartan potassium 100 mg once a day and oxycodone immediate release 5 mg every 4 hours for 5 more days. FINAL DISCHARGE DIAGNOSES: Acute alcohol-induced pancreatitis, amphetamine abuse, chronic alcoholism, hypertension. DESIREE PETERSON MD DR: LOUANN/chani JOB#: [id number] / [id number]
== END 2019-11-19 17:24 | disposition home or self-care (01) | DRG 438 ==
LOC: ER 08:55 → 1 SOUTH 12:00
PROVIDERS: ADMIT Hospitalist; ATTEND Hospitalist
DX: K85.20 Alcohol induced acute pancreatitis without necrosis or infection (principal); E43 Unspecified severe protein-calorie malnutrition; F15.10 Other stimulant abuse, uncomplicated; F41.8 Other specified anxiety disorders; I10 Essential (primary) hypertension; Z82.0 Family history of epilepsy and other diseases of the nervous system; Z79.899 Other long term (current) drug therapy; F10.20 Alcohol dependence, uncomplicated; K76.0 Fatty (change of) liver, not elsewhere classified; R16.0 Hepatomegaly, not elsewhere classified; Z68.27 Body mass index [BMI] 27.0-27.9, adult
CPT/HCPCS: 36415; 74177; 80048; 80053; 80307; 81001; 81025; 83690; 85025; 96361; 96374; 96375; J1200; J1885; J2060; J2270; J2405; J3010; J7042; Q9967; 99291-25; J7030

== ENCOUNTER 2019-11-19 17:37 | Emergency (ER) | payer MEDICARE ==
[~2019-11-19] VITALS: Ht 177.8 cm; Wt 89.0 kg
[~2019-11-19 17:37] MED LIST changes: +AMLO10TA8 PO; +CLON1TAB23 PO; +LOSA100T14 PO; +OXYC5TAB4 PO
--- NOTE | 2019-11-19 18:13 | PHYS DOC ---
Past History Past Medical History: Anxiety, Depression, Hypertension, Pancreatitis Past Surgical History: No Surgical History Alcohol Use: Heavy Drug Use: None General Adult EDM: Chief Complaint: SUICIDAL IDEATION HPI: HPI: 28-year-old female presents with suicidal thoughts. Patient was just recently admitted to this facility for pancreatitis and did not see anything about feeling suicidal. After discharge she decided she was depressed and suicidal and came to emergency room. She has no specific plan. She states that she is just been having a lot of extra stress lately and been thinking more about hurting herself. She has no medical complaints at this time. Review of Systems: Review of Systems: Constitutional: Denies fever or chills Eyes: Denies change in visual acuity HENT: Denies nasal congestion or sore throat Respiratory: Denies cough or shortness of breath Cardiovascular: Denies chest pain or edema GI: Denies abdominal pain, nausea, vomiting, bloody stools or diarrhea : Denies dysuria Musculoskeletal: Denies back pain or joint pain Integument: Denies rash Neurologic: Denies headache, focal weakness or sensory changes Endocrine: Denies polyuria or polydipsia Lymphatic: Denies swollen glands Psychiatric: Depression, suicidal thoughts Heart Score: Risk Factors: Risk Factors: DM, Current or recent (<one month) smoker, HTN, HLP, family history of CAD, obesity. Risk Scores: Score 0 - 3: 2.5% MACE over next 6 weeks - Discharge Home Score 4 - 6: 20.3% MACE over next 6 weeks - Admit for Clinical Observation Score 7 - 10: 72.7% MACE over next 6 weeks - Early Invasive Strategies Allergies: Allergies: Allergies Coded Allergies Type Severity Reaction Last Updated Verified No Known Drug Allergies 09/20/19 No Physical Exam: PE: Constitutional: Well developed, well nourished, no acute distress, non-toxic appearance. [] HENT: Normocephalic, atraumatic, bilateral external ears normal, oropharynx moist, no oral exudates, nose normal. [] Eyes: PERRLA, EOMI, conjunctiva normal, no discharge. [] Neck: Normal range of motion, no tenderness, supple, no stridor. [] Cardiovascular:Heart rate regular rhythm, no murmur [] Lungs & Thorax: Bilateral breath sounds clear to auscultation [] Abdomen: Bowel sounds normal, soft, no tenderness, no masses, no pulsatile masses. [] Skin: Warm, dry, no erythema, no rash. [] Back: No tenderness, no CVA tenderness. [] Extremities: No tenderness, no cyanosis, no clubbing, ROM intact, no edema. [] Neurologic: Alert and oriented X 3, normal motor function, normal sensory function, no focal deficits noted. [] Psychologic: Affect normal, judgement normal, mood depressed. [] Current Patient Data: Vital Signs: Vital Signs Date Time Temp Pulse Resp B/P (MAP) Pulse Ox O2 Delivery O2 Flow Rate FiO2 11/19/19 17:48 98.0 94 16 157/96 (116) 99 Room Air EKG: EKG: [] Radiology/Procedures: Radiology/Procedures: [] Course & Med Decision Making: Course & Med Decision Making Pertinent Labs and Imaging studies reviewed. (See chart for details) The patient's labs are unremarkable. Her urinalysis is negative for infection. Her urine drug screen is positive for opiates which is consistent with the fentanyl the patient was getting in the hospital for pancreatitis. The psychiatric screen has determined that she can be discharged with a safety plan. She is stable for discharge at this time with outpatient follow-up. [] Dragon Disclaimer: Dragon Disclaimer: This electronic medical record was generated, in whole or in part, using a voice recognition dictation system. Departure Departure: Impression: Primary Impression: Suicidal ideation Disposition: HOME/RESIDENCE PRIOR TO ADM Condition: STABLE Referrals: PCP,NO (PCP) Patient Instructions: Suicidal Feelings, How to Help Yourself Justification of Admission: Justification of Admission: Justification of Admission Dx: N/A ZENIA HANCOCK DO Nov 19, 2019 18:13
[2019-11-19 18:38] LABS: BASO % 1 % (0-3); EOS # 0.2 x10^3/uL (0.0-0.7); EOS % 3 % (0-3); HEMATOCRIT 32.3 % (36.0-47.0); HEMOGLOBIN 10.5 g/dL (12.0-15.5); LYMPH # 1.9 x10^3/uL (1.0-4.8); LYMPH % 32 % (24-48); MEAN CORPUSCULAR HEMOGLOBIN 26 pg (25-35); MEAN CORPUSCULAR HGB CONC 32 g/dL (31-37); MEAN CORPUSCULAR VOLUME 81 fL (79-100); MONO # 0.5 x10^3/uL (0.0-1.1); MONO % 8 % (0-9); NEUT # 3.3 x10^3uL (1.8-7.7); NEUT % 57 % (31-73); PLATELET COUNT 232 x10^3/uL (140-400); RED BLOOD COUNT 3.97 x10^6/uL (3.50-5.40); RED CELL DISTRIBUTION WIDTH 19.8 % (11.5-14.5); WHITE BLOOD COUNT 5.9 x10^3/uL (4.0-11.0)
[2019-11-19 18:45] LABS: CALCIUM 7.4 mg/dL (8.5-10.1); CREATININE 0.9 mg/dL (0.6-1.0); GFR 89.6; POTASSIUM 3.5 mmol/L (3.5-5.1)
[2019-11-19 18:50] LABS: ALBUMIN 2.8 g/dL (3.4-5.0); ALBUMIN/GLOBULIN RATIO 0.7 (1.0-1.7); TOTAL BILIRUBIN 0.4 mg/dL (0.2-1.0)
[2019-11-19 19:04] LABS: BARBITURATES NEG (NEG); BENZODIAZEPINES NEG (NEG); CANNABINOIDS NEG (NEG); COCAINE NEG (NEG); METHADONE NEG (NEG); OPIATES POS (NEG); PHENCYCLIDINE NEG (NEG)
[2019-11-19 19:05] LABS: BILIRUBIN,URINE NEG (NEG); CLARITY,URINE HAZY; COLOR,URINE YELLOW; GLUCOSE,URINE NEG (NEG)
[2019-11-19 19:06] LABS: BACTERIA,URINE FEW /HPF (0-FEW); NITRITE,URINE NEG (NEG); RBC,URINE OCC /HPF (0-2); WBC,URINE OCC /HPF (0-4)
[2019-11-19 19:07] LABS: SQUAMOUS EPITHELIAL CELL,UR MOD /LPF
[2019-11-19 19:08] LABS: AMPHETAMINE/METHAMPHETAMINE NEG (NEG)
[2019-11-19 20:31] VITALS: BP 155/95
== END 2019-11-20 00:35 | disposition home or self-care (01) ==
LOC: ER 17:37
DX: R45.851 Suicidal ideations (principal); F41.9 Anxiety disorder, unspecified; F32.9 Major depressive disorder, single episode, unspecified; I10 Essential (primary) hypertension
CPT/HCPCS: 36415; 80053; 80307; 81001; 85025; 87086; 99284

== ENCOUNTER 2020-03-28 13:48 | Inpatient (IN) | payer MEDICARE ==
[~2020-03-28] VITALS: Ht 157.5 cm; Wt 79.2 kg
[~2020-03-28 13:48] MED LIST changes: +AMLO-187 PO; -AMLO10TA8 PO
[2020-03-28] MEDS ORDERED: IV NORMAL SALINE 1,000ML 1,000 ML IV SCH (14:14)
--- NOTE | 2020-03-28 14:16 | PHYS DOC ---
Past History Past Medical History: Anxiety, Depression, Hypertension, Pancreatitis Past Surgical History: No Surgical History Alcohol Use: Heavy Drug Use: Amphetamine Adult General Chief Complaint Chief Complaint: ABDOMINAL PAIN HPI HPI Patient is a 29-year-old female who presents for epigastric pain. Onset was yesterday evening and progressed throughout the night until it was excruciating and constant today prompting her to come in for evaluation. Nothing known makes better, p.o. intake makes worse. Pain is sharp and radiates to back, feels like prior episodes of pancreatitis. Patient reports long history of pancreatitis in the past for which she has been admitted for. Primary cause of this is heavy a lcohol abuse. Reports being sober for past 5 months but admits heavy alcohol consumption for past 4 days. Has been consuming at least 32 ounces of whiskey daily since that time. She denies any history of delirium tremens, no history of intubation but admits history of suffering alcohol withdrawal. Beyond abdominal pain today, she is admitting feeling shaky, anxious, and nauseous. Denies any fever, COVID-19 contact, chest pain, shortness of breath, urinary symptoms, changes in bladder or bowel function. She has not eaten since yesterday evening. Reports last drink was approximately 28 hours ago Review of Systems Review of Systems Fourteen body systems of review of systems have been reviewed. See HPI for pertinent positives and negative responses, other arredondo all other systems are negative, non-pertinent or non-contributory Allergies Allergies Allergies Coded Allergies Type Severity Reaction Last Updated Verified No Known Drug Allergies 09/20/19 No Physical Exam Physical Exam Constitutional: Well developed, well nourished, moderate distress constantly shaking and appears in discomfort, non-toxic appearance. HENT: Normocephalic, atraumatic, bilateral external ears normal, oropharynx moist, no oral exudates, nose normal. Eyes: PERRLA, EOMI, conjunctiva normal, no discharge. Neck: Normal range of motion, no tenderness, supple, no stridor. Cardiovascular: Heart rate tachycardic, sinus rhythm, no murmurs rubs or gallops Lungs & Thorax: Bilateral breath sounds clear to auscultation Abdomen: Bowel sounds normal, soft, epigastric tenderness, voluntary guarding, no rebound no masses, no pulsatile masses. Nonsurgical abdomen, no peritoneal signs Skin: Warm, dry, no erythema, no rash. Back: No tenderness, no CVA tenderness. Extremities: No tenderness, no cyanosis, no clubbing, ROM intact, no edema. Ambulatory with unremarkable gait Neurologic: Alert and oriented X 3, grossly normal motor & sensory function, no focal deficits noted. Psychologic: Affect normal, judgement normal, anxious mood Current Patient Data Vital Signs Vital Signs Date Time Temp Pulse Resp B/P (MAP) Pulse Ox O2 Delivery O2 Flow Rate FiO2 03/29/20 05:49 98.8 89 18 157/84 (108) 93 Room Air Lab Results Laboratory Tests Test 03/28/20 14:04 03/28/20 15:26 03/29/20 04:44 White Blood Count 7.1 x10^3/uL (4.0-11.0) Red Blood Count 4.27 x10^6/uL (3.50-5.40) Hemoglobin 11.4 g/dL (12.0-15.5) Hematocrit 35.4 % (36.0-47.0) Mean Corpuscular Volume 83 fL (79-100) Mean Corpuscular Hemoglobin 27 pg (25-35) Mean Corpuscular Hemoglobin Concent 32 g/dL (31-37) Red Cell Distribution Width 17.0 % (11.5-14.5) Platelet Count 351 x10^3/uL (140-400) Neutrophils (%) (Auto) 64 % (31-73) Lymphocytes (%) (Auto) 30 % (24-48) Monocytes (%) (Auto) 6 % (0-9) Eosinophils (%) (Auto) 0 % (0-3) Basophils (%) (Auto) 1 % (0-3) Neutrophils # (Auto) 4.6 x10^3uL (1.8-7.7) Lymphocytes # (Auto) 2.1 x10^3/uL (1.0-4.8) Monocytes # (Auto) 0.4 x10^3/uL (0.0-1.1) Eosinophils # (Auto) 0.0 x10^3/uL (0.0-0.7) Basophils # (Auto) 0.1 x10^3/uL (0.0-0.2) Sodium Level 138 mmol/L (136-145) Potassium Level 3.6 mmol/L (3.5-5.1) Chloride Level 99 mmol/L (98-107) Carbon Dioxide Level 24 mmol/L (21-32) Anion Gap 15 (6-14) Blood Urea Nitrogen 16 mg/dL (7-20) Creatinine 0.7 mg/dL (0.6-1.0) Estimated GFR (Cockcroft-Gault) 118.9 BUN/Creatinine Ratio 23 (6-20) Glucose Level 99 mg/dL (70-99) Lactic Acid Level 2.7 mmol/L (0.4-2.0) Calcium Level 8.4 mg/dL (8.5-10.1) Total Bilirubin 1.0 mg/dL (0.2-1.0) Aspartate Amino Transf (AST/SGOT) 77 U/L (15-37) Alanine Aminotransferase (ALT/SGPT) 49 U/L (14-59) Alkaline Phosphatase 126 U/L (46-116) Creatine Kinase 1821 U/L (26-192) Troponin I Quantitative < 0.017 ng/mL (0-0.055) Total Protein 8.6 g/dL (6.4-8.2) Albumin 3.9 g/dL (3.4-5.0) Albumin/Globulin Ratio 0.8 (1.0-1.7) Lipase 32 U/L (73-393) Ethyl Alcohol Level < 10 mg/dL (0-10) Urine Collection Type Unknown Urine Color Carmen Urine Clarity Hazy Urine pH 5.5 Urine Specific Dunlap 1.025 Urine Protein 100 mg/dl (NEG-TRACE) Urine Glucose (UA) Neg mg/dL (NEG) Urine Ketones (Stick) >=160 mg/dL (NEG) Urine Blood Large (NEG) Urine Nitrite Neg (NEG) Urine Bilirubin Neg (NEG) Urine Urobilinogen Dipstick 0.2 mg/dL (0.2 mg/dL) Urine Leukocyte Esterase Neg (NEG) Urine RBC 3-5 /HPF (0-2) Urine WBC Occ /HPF (0-4) Urine Squamous Epithelial Cells Few /LPF Urine Amorphous Sediment Present /HPF Urine Bacteria Few /HPF (0-FEW) Urine Test Negative (NEG) Urine Opiates Screen Neg (NEG) Urine Methadone Screen Neg (NEG) Urine Barbiturates Neg (NEG) Urine Phencyclidine Screen Neg (NEG) Urine Amphetamine/Methamphetamine Pos (NEG) Urine Benzodiazepines Screen Neg (NEG) Urine Cocaine Screen Neg (NEG) Urine Cannabinoids Screen Neg (NEG) Urine Ethyl Alcohol Pos (NEG) Glucose (Fingerstick) 97 mg/dL (70-99) EKG EKG EKG ordered and interpreted by myself at 1416 hrs. as sinus tachycardia at 106 bpm, prolonged QTC at 493 otherwise unremarkable intervals, no axis deviation, no acute ischemic findings, no STEMI Radiology/Procedures Radiology/Procedures PROCEDURE: CT ABD PELV W/ IV CONTRST ONLY CT abdomen pelvis with contrast dated 03/28/2020. Comparison made to 11/17/2019. CLINICAL INDICATION: Pain. TECHNIQUE: Contiguous axial imaging the abdomen pelvis performed after the administration of 75 cc Omnipaque 300. One or more of the following individualized dose reduction techniques were utilized for this examination: 1. Automated exposure control 2. Adjustment of the mA and/or kV according to patient size 3. Use of iterative reconstruction technique. FINDINGS: Limited images of lung bases show mild patchy density in the lingula on image 1 is unchanged from prior study. Heart size within normal limits. No pleural or pericardial effusion. Liver is of diffuse low density, compatible with fatty infiltration. There is some focal fat at the falciform ligament. No apparent mass. Biliary tree normal in caliber. Gallbladder unremarkable. Spleen is normal in size. Pancreas is atrophic but otherwise unremarkable. Gallbladder and adrenal glands are within normal limits. Kidneys are symmetric in size and attenuation. No hydronephrosis. Unopacified GI tract normal in caliber and contour. No focal bowel wall thickening. No inflammatory stranding in the mesentery. The appendix is normal in caliber. No ascites or lymphadenopathy. Abdominal aorta normal in caliber. Images of pelvis show nondistended urinary bladder. There is a cervical cuff in place. No free fluid or pelvic lymphadenopathy. Bone windows show no acute findings. IMPRESSION: 1. No acute abnormality of abdomen or pelvis. Normal appendix. 2. Fatty infiltration of the liver. Electronically signed by: Silverio Kumari MD (03/28/2020 3:30 PM) [facility] PROC[facility]: PORTABLE CHEST 1V Single view chest dated 03/28/2020: Comparison made to 03/15/2019. Clinical Indication: Abdominal pain.. Findings: Single upright portable exam of the chest was performed. Heart size and mediastinal contours are within normal limits given technique. The lungs are clear without evidence of focal consolidation. No pleural effusion or pneumothorax. Impression:: Negative portable chest. Electronically signed by: Silverio Kumari MD (03/28/2020 3:27 PM) [facility] Heart Score HEART Score for Chest Pain: HEART Score for Chest Pain Response (Comments) Value History Slighlty/Non-Suspicious 0 ECG Normal 0 Age < 45 0 Risk Factors 1 or 2 Risk Factors 1 Troponin < Normal Limit 0 Total 1 Risk Factors: Risk Factors: DM, Current or recent (<one month) smoker, HTN, HLP, family history of CAD, obesity. Risk Scores: Risk Factors: DM, Current or recent (<one month) smoker, HTN, HLP, family history of CAD, obesity. Course & Med Decision Making Course & Med Decision Making Pertinent Labs and Imaging studies reviewed. (See chart for details) Hemodynamically stable patient in obvious pain worked up extensively. Initial concern for alcohol withdrawal given last drink reported greater than 24 hours ago in a high risk patient and so she was treated with 1 mg IV Ativan. Appropriate vitamin replacement and subsequent fluid rehydration ensued. Initial concern for pancreatitis but patient's presenting symptoms likely due to alcohol related gastritis and was subsequently treated with PPI therapy Patient severely dehydrated with elevated creatinine kinase requiring IV fluid given poor p.o. intake at present Patient also positive for amphetamine for which she disclosed to recent use in past 48 hours. This likely is contributing to her initial presentation which concerned me for alcohol withdrawals Ultimately, patient offered admission for continued medical care and management given she has high risk for poor prognosis if returning home to an unstable environment, she is amenable I called Dr. Fredercik, hospitalist at [facility] who agreed for admission under his care All questions and concerns patient had addressed prior to ER departure to [facility] for continued medical management Surjit Disclaimer Dragon Disclaimer This electronic medical record was generated, in whole or in part, using a voice recognition dictation system. Departure Departure: Impression: Primary Impression: Alcoholic gastritis Additional Impressions: Elevated creatine kinase level Drug-seeking behavior Alcohol dependence Illicit drug use, continuous Disposition: 09 ADMITTED INPT THIS HOSP Admitting Physician: Sara Frederick Condition: STABLE Referrals: PCP,NO (PCP) Problem Qualifiers GREG TRACY DO Mar 28, 2020 14:16
[2020-03-28 14:37] LABS: BASO # 0.1 x10^3/uL (0.0-0.2); BASO % 1 % (0-3); EOS % 0 % (0-3); HEMATOCRIT 35.4 % (36.0-47.0); HEMOGLOBIN 11.4 g/dL (12.0-15.5); LYMPH # 2.1 x10^3/uL (1.0-4.8); LYMPH % 30 % (24-48); MEAN CORPUSCULAR HEMOGLOBIN 27 pg (25-35); MEAN CORPUSCULAR HGB CONC 32 g/dL (31-37); MEAN CORPUSCULAR VOLUME 83 fL (79-100); MONO # 0.4 x10^3/uL (0.0-1.1); MONO % 6 % (0-9); NEUT # 4.6 x10^3uL (1.8-7.7); NEUT % 64 % (31-73); PLATELET COUNT 351 x10^3/uL (140-400); RED BLOOD COUNT 4.27 x10^6/uL (3.50-5.40); WHITE BLOOD COUNT 7.1 x10^3/uL (4.0-11.0)
[2020-03-28 14:39] LABS: CALCIUM 8.4 mg/dL (8.5-10.1); CREATININE 0.7 mg/dL (0.6-1.0); GFR 118.9; POTASSIUM 3.6 mmol/L (3.5-5.1)
[2020-03-28] MEDS ORDERED: IOHEXOL 300 MG/ML 75 ML VIAL. IV ONE (14:45)
[2020-03-28] MEDS ORDERED: FOLIC ACID 1 MG TABLET PO ONE (14:45)
[2020-03-28] MEDS ORDERED: THIAMINE INJ 100 MG in IV NORMAL SALINE 50ML 50 ML IV SCH (15:00)
[2020-03-28 15:01] LABS: ALBUMIN 3.9 g/dL (3.4-5.0); ALBUMIN/GLOBULIN RATIO 0.8 (1.0-1.7); TOTAL PROTEIN 8.6 g/dL (6.4-8.2)
--- NOTE | 2020-03-28 15:30 | RAD ---
Single view chest dated 03/28/2020: Comparison made to 03/15/2019. Clinical Indication: Abdominal pain.. Findings: Single upright portable exam of the chest was performed. Heart size and mediastinal contours are within normal limits given technique. The lungs are clear without evidence of focal consolidation. No pleural effusion or pneumothorax. Impression:: Negative portable chest. Electronically signed by: Silverio Kumari MD (03/28/2020 3:27 PM) [id number]
--- NOTE | 2020-03-28 15:33 | RAD ---
CT abdomen pelvis with contrast dated 03/28/2020. Comparison made to 11/17/2019. CLINICAL INDICATION: Pain. TECHNIQUE: Contiguous axial imaging the abdomen pelvis performed after the administration of 75 cc Omnipaque 300. One or more of the following individualized dose reduction techniques were utilized for this examination: 1. Automated exposure control 2. Adjustment of the mA and/or kV according to patient size 3. Use of iterative reconstruction technique. FINDINGS: Limited images of lung bases show mild patchy density in the lingula on image 1 is unchanged from prior study. Heart size within normal limits. No pleural or pericardial effusion. Liver is of diffuse low density, compatible with fatty infiltration. There is some focal fat at the falciform ligament. No apparent mass. Biliary tree normal in caliber. Gallbladder unremarkable. Spleen is normal in size. Pancreas is atrophic but otherwise unremarkable. Gallbladder and adrenal glands are within normal limits. Kidneys are symmetric in size and attenuation. No hydronephrosis. Unopacified GI tract normal in caliber and contour. No focal bowel wall thickening. No inflammatory stranding in the mesentery. The appendix is normal in caliber. No ascites or lymphadenopathy. Abdominal aorta normal in caliber. Images of pelvis show nondistended urinary bladder. There is a cervical cuff in place. No free fluid or pelvic lymphadenopathy. Bone windows show no acute findings. IMPRESSION: 1. No acute abnormality of abdomen or pelvis. Normal appendix. 2. Fatty infiltration of the liver. Electronically signed by: Silverio Kumari MD (03/28/2020 3:30 PM) [facility]
[2020-03-28 16:07] LABS: BARBITURATES NEG (NEG); BENZODIAZEPINES NEG (NEG); CANNABINOIDS NEG (NEG); COCAINE NEG (NEG); METHADONE NEG (NEG); OPIATES NEG (NEG); PHENCYCLIDINE NEG (NEG)
[2020-03-28 16:12] LABS: U PREG PATIENT NEGATIVE (NEG)
[2020-03-28 16:15] LABS: BILIRUBIN,URINE NEG (NEG); CLARITY,URINE HAZY; COLOR,URINE AMBER; GLUCOSE,URINE NEG (NEG); NITRITE,URINE NEG (NEG); UROBILINOGEN,URINE 0.2 mg/dL (0.2 mg/dL)
[2020-03-28 16:16] LABS: AMORPHOUS SEDIMENT,UR PRESENT /HPF; BACTERIA,URINE FEW /HPF (0-FEW); SQUAMOUS EPITHELIAL CELL,UR FEW /LPF; WBC,URINE OCC /HPF (0-4)
[2020-03-28 16:20] LABS: AMPHETAMINE/METHAMPHETAMINE POS (NEG)
[2020-03-28] MEDS ORDERED: PANTOPRAZOLE IV 40 MG VIAL. IVP ONE (16:30)
--- NOTE | 2020-03-28 17:14 | EKG ---
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
[2020-03-28 17:50] VITALS: BP 123/85
--- NOTE | 2020-03-28 18:18 | NUR ---
The patient, OSCAR SALCEDO, 29 y/o, F admitted by DESIREE PETERSON MD, was given written information regarding hospital policies, unit procedures and contact persons. Valuables were checked and VS taken, please see chart.
[2020-03-28] MEDS ORDERED: diphenhydrAMINE 50 MG/ML VIAL IVP PRN (18:30)
[2020-03-28] MEDS ORDERED: HALOPERIDOL LACT 5 MG/ML VIAL. IM PRN (18:30)
[2020-03-28] MEDS ORDERED: chlordiazePOXIDE HCL 25 MG CAPSULE PO PRN ×2 (18:30)
[2020-03-28] MEDS ORDERED: cloNIDine HCL 0.1 MG TABLET PO PRN (18:30)
[2020-03-28] MEDS ORDERED: ONDANSETRON PF 4 MG/2 ML VIAL. IVP PRN (18:45)
[2020-03-28] MEDS: IV NORMAL SALINE 1,000ML 1,000 ML IV SCH ×2 (18:45→23:18)
[2020-03-28] MEDS ORDERED: MVI, ADULT NO.4 WITH VIT K 10 ML, THIAMINE INJ 100 MG, FOLIC ACID INJ 1 MG in IV NORMAL... IV SCH (19:00)
[2020-03-28 19:08] VITALS: BP_SYST 136; BP_SYST 93; BP_DIAS 60; BP_DIAS 82
[2020-03-28] MEDS: HYDROmorphone PF 2 MG/ML VIAL IVP PRN (20:23)
[2020-03-28 23:46] VITALS: BP 144/70
[2020-03-29] MEDS: HYDROmorphone PF 2 MG/ML VIAL IVP PRN ×3 (00:33→08:49)
[2020-03-29 05:49] VITALS: BP 157/84
[2020-03-29 06:47] LABS: HEMATOCRIT 30.2 % (36.0-47.0); HEMOGLOBIN 9.7 g/dL (12.0-15.5); RED BLOOD COUNT 3.65 x10^6/uL (3.50-5.40); RED CELL DISTRIBUTION WIDTH 16.6 % (11.5-14.5); WHITE BLOOD COUNT 6.5 x10^3/uL (4.0-11.0)
[2020-03-29 07:08] LABS: ALBUMIN 3.1 g/dL (3.4-5.0); ALBUMIN/GLOBULIN RATIO 0.7 (1.0-1.7); CALCIUM 7.5 mg/dL (8.5-10.1); CREATININE 0.7 mg/dL (0.6-1.0); GFR 118.9; POTASSIUM 3.8 mmol/L (3.5-5.1); TOTAL BILIRUBIN 0.9 mg/dL (0.2-1.0); TOTAL PROTEIN 7.3 g/dL (6.4-8.2)
[2020-03-29] MEDS: IV NORMAL SALINE 1,000ML 1,000 ML IV SCH ×2 (07:59→12:38)
--- NOTE | 2020-03-29 08:23 | NUR ---
NURSING NOTE FLU VACCINE PT STATES SHE DOES NOT WANT FLU INJ THIS AM, WILL REORDER FOR TOMORROW AM. SHIVANI SOTO.
[2020-03-29] MEDS ORDERED: FLU VACC QS 2020-21(6MOS+)/PF 0.5 ML SYRINGE. VAX IM ONE (09:00)
[2020-03-29 10:30] VITALS: BP 144/81
--- NOTE | 2020-03-29 15:19 | NUR ---
NURSING NOTE PT WAS TOLD SHE IS DISCHARGING UPON ROUNDS, WAITING FOR DR ORDERS AT THIS TIME. PT CALLED TO GET HER IV OUT, INFORMED PT SOON DR PETERSON GETS HER ORDERS DONE AND HER SCRIPTS READY FOR HER, HER IV COULD BE REMOVED AND SHE COULD GET DRESSED. PT CALLED AGAIN, STATES SHE WANTS TO CALL A CAB. PT GIVEN CAB INFORMATION. PT STATES SHE PULLED HER OWN IV OUT. SHIVANI SOTO.
[2020-03-29] MEDS ORDERED: OXYC5TAB4 PO (15:24)
--- NOTE | 2020-03-29 15:47 | NUR ---
NURSING NOTE DISCHARGE PT WAS DISCHARGED HOME VIA AMBULATION, PT GIVEN SCRIPT FOR PAIN MEDICATION. PT WAS UNINTERESTED IN DISCHARGED EDUCATION. PT ANXIOUS TO GET OUT OF HOSPITAL. PT CALLED CAB TO GET A RIDE HOME. PT GIVEN DISCHARGE INFORMATION IN REGARD TO HYDRATION AND PUSHING FLUIDS. PT STATES OKAY. PT HAD PULLED HER OWN IV OUT, AND WAS VERY ANXIOUS TO LEAVE AND IN A [place]. SHIVANI SOTO.
--- NOTE | 2020-03-29 16:45 | SSS ---
ADMIT DATE: HISTORY OF PRESENT ILLNESS: The patient is a 29-year-old -Mongol[place] female patient who came to the Emergency Room complaining of abdominal pain. The pain is mostly epigastric in nature. Onset was the day before and progressed throughout the night until it was excruciating and constant prompting her to come into for evaluation. Nothing known makes it better, p.o. intake makes it worse. Pain is sharp, radiating to the back, feels like prior episodes of pancreatitis. The patient reports a long history of pancreatitis in the past for which she has been admitted here multiple times. The patient's primary cause is heavy alcohol abuse. She stated that she has been sober for the past 5 months, but admits to heavy alcohol consumption over the last 4 days, has been consuming at least 32 ounces of whiskey daily since that time. She denies any history of delirium tremens. No history of intubation, but admits history of suffering alcohol withdrawal. Beyond abdominal pain today she is admitting to feeling shaky, anxious and nauseous. Denied any fever, COVID-19 contact, chest pain, shortness of breath, urinary symptoms, changes in bladder or bowel habit. She has not eaten since yesterday evening and reports last drink was approximately 28 hours ago. She was extensively investigated in the Emergency Room with lab work. Her blood alcohol level was less than 10. She was positive for amphetamine, methamphetamine. Urinalysis was essentially unremarkable. Her chemistry was unremarkable. In fact, her serum lipase was only 32. Her CK was high at 1821. Everything else was within normal range. Her white cell count, hemoglobin, hematocrit and platelets are all within acceptable range. The patient was admitted and has had a CT scan of the abdomen and pelvis, which basically showed no acute abnormality of the abdomen and pelvis, normal appendix, fatty infiltration of the liver. In particular, there is some focal fat at the falciform ligament. The biliary tree is normal in caliber. Gallbladder is unremarkable. Spleen is normal in size. Pancreas is atrophic, but otherwise unremarkable. Kidneys are symmetric in size and attenuation. No hydronephrosis. The patient was admitted with alcoholic gastritis, elevated creatine kinase, drug seeking behavior, alcohol dependence, illicit drug use is continuous. The patient was continued on IV banana bag as well as her hydromorphone and alcohol withdrawal protocol. The patient did well. She remained hemodynamically stable, afebrile. Her lab work this morning again showed that her serum lactic acid is down to 0.8. Her serum lipase was 30. Her CK came down from high of almost 1800 down to 1000. The patient was explained that there is no evidence she has pancreatitis this time, although she might have gastritis. She was able to eat her breakfast and lunch without difficulty and she complained of problem with her vision and asked if somebody can see her here and I did advise her that we do not have any waxing machine operator in-house and obviously she can be discharged home and make an appointment with an waxing machine operator. PHYSICAL EXAMINATION: GENERAL: When I saw her this afternoon, she was sitting on the edge of the bed comfortably, in no apparent respiratory distress. No pallor, jaundice, cyanosis or thyromegaly. No jugular venous distention. No lower limb edema. VITAL SIGNS: Her heart rate was 87, blood pressure was 144/81, temperature was 98.5, respiratory rate 20, and oxygen saturation was 94%. HEAD, EYES, EARS, NOSE AND THROAT: Normocephalic, atraumatic. NECK: Supple. HEART: Showed normal first and second heart sounds. No gallop or murmur. CHEST: Clear to auscultation. No crepitation or rhonchi. ABDOMEN: Slightly distended, soft, nontender. No guarding or rigidity. No organomegaly. All hernial orifice intact. Bowel sounds normal. NEUROLOGIC: She was awake, alert, responding appropriately. All cranial nerves intact. She moves extremities without difficulty. She ambulates without assistance or assistive devices. LABORATORY DATA: Her lab work this morning showed a white cell count of 6100, hemoglobin 9.7, hematocrit 30, MCV 83, and platelet count 277,000. Her chemistry showed a serum sodium 138, potassium 3.8, chloride 102, bicarbonate 23, anion gap of 13, BUN 14, creatinine 0.7, estimated GFR was 118 mL per minute. Her glucose was 100, calcium was 7.5. Her lactic acid was 0.8. Total bilirubin, AST, ALT, alkaline phosphatase were normal. CK was 1038. Total protein was 7.3, albumin was 3.1. Lipase was 30. I spoke with the patient and made it clear to her that her CK was slightly elevated; it was 1821 on arrival, today 1038. Her kidney function, however, are normal. There is no evidence like her potassium is normal, her creatinine is normal and that if she can stay here continue IV fluid. However, as her main complaint was about her vision problem that I am not an waxing machine operator and she is very concerned about her vision, so I discharged her home with advice that she should drink plenty of fluid including water and Gatorade perhaps and make sure to flush her kidneys and basically gave her also prescription for oxycodone and to follow with her primary care physician and make an appointment with an waxing machine operator as soon as possible. FINAL DISCHARGE DIAGNOSES: Questionable alcoholic gastritis. The patient actually had no nausea, no vomiting here, no diarrhea. The patient has history of alcohol abuse and has been admitted here on numerous occasions before with acute alcohol-induced pancreatitis, but this time there is no evidence of pancreatitis by lab values and CT scan also was unremarkable. In fact, it showed that her pancreas is atrophic. Other problems include hypertension and amphetamine abuse. DESIREE PETERSON MD DR: LOUANN/chani JOB#: [id number] / [id number]
[2020-03-30] MEDS ORDERED: FLU VACC QS 2020-21(6MOS+)/PF 0.5 ML SYRINGE. VAX IM ONE (09:00)
[2020-03-30] MEDS ORDERED: MVI, ADULT NO.4 WITH VIT K 10 ML, THIAMINE INJ 100 MG, FOLIC ACID INJ 1 MG in IV NORMAL... IV SCH (09:00)
== END 2020-03-29 16:22 | disposition home or self-care (01) | DRG 392 ==
LOC: ER 13:48 → 1 SOUTH 16:45
PROVIDERS: ADMIT Internal Medicine; ATTEND Internal Medicine
DX: R10.9 Unspecified abdominal pain (principal); K76.0 Fatty (change of) liver, not elsewhere classified; Y90.0 Blood alcohol level of less than 20 mg/100 ml; Z76.5 Malingerer [conscious simulation]; I10 Essential (primary) hypertension; F15.10 Other stimulant abuse, uncomplicated; F10.20 Alcohol dependence, uncomplicated; F32.9 Major depressive disorder, single episode, unspecified; F41.9 Anxiety disorder, unspecified
CPT/HCPCS: 36415; 71045; 74177; 80053; 80307; 81001; 81025; 82550; 82947; 83605; 83690; 84484; 85025; 85027; 87040; 93005; 96361; 96365; 96375; 99285; G0480; J1170; J2060; J3010; J7030

== ENCOUNTER 2020-04-08 12:08 | Emergency (ER) | payer MEDICARE ==
[~2020-04-08] VITALS: Ht 157.5 cm; Wt 79.2 kg
[2020-04-08] MEDS ORDERED: ONDANSETRON PF 4 MG/2 ML VIAL. IVP ONE ×2 (12:45→14:00)
[2020-04-08] MEDS ORDERED: FAMOTIDINE 20 MG/2 ML VIAL IVP ONE (12:45)
[2020-04-08] MEDS ORDERED: IV NORMAL SALINE 1,000ML 1,000 ML IV ONE ×2 (12:45→14:00)
[2020-04-08] MEDS ORDERED: KETOROLAC 15 MG/ML VIAL. IVP ONE (12:45)
--- NOTE | 2020-04-08 12:50 | PHYS DOC ---
Past History Past Medical History: Anxiety, Depression, Hypertension, Pancreatitis, Schizophrenia Past Surgical History: No Surgical History Smoking: Non-smoker Alcohol Use: Heavy Drug Use: Amphetamine General Adult EDM: Chief Complaint: ABDOMINAL PAIN HPI: HPI: Patient is a 29 year old Female who presents with abdominal pain localized to the epigastrium. Patient states symptoms began this morning with nausea, vomiting and diarrhea. Denies blood in stool and emesis. Pain is located in the epigastrium without radiation, rated at 6/10 and worsening achy pain. Patient reports heavy alcohol use the two nights before. Patient reports drinking half a fifth of rum last night and 4 cans of beer the night before. Patient was previously sober and states that she began hearing voices and was in a bad place which restarted her ETOH use. Patient has a history of schizophrenia and pancreatitis diagnosed in 2018. Patient denies tobacco and recreational drug use and family history of pancreatitis. Patient is not concerned of possible and drove herself today. Patient has not tried any medications for pain or nausea due to vomiting. Review of Systems: Review of Systems: Constitutional: Denies fever or chills Eyes: Denies redness or eye pain HENT: Denies nasal congestion or sore throat Respiratory: Denies cough or shortness of breath Cardiovascular: Denies chest pain or palpitations GI: Admits abdominal pain, nausea, or vomiting : Denies dysuria or hematuria Musculoskeletal: Denies back pain or joint pain Integument: Denies rash or skin lesions Neurologic: Admits headache. Denies focal weakness or sensory changes Complete systems were reviewed and found to be within normal limits, except as documented in this note. Current Medications: Current Meds: Current Medications Medications (Trade) Dose Ordered Sig/Luis Felipe Start Time Stop Time Status Last Admin Dose Admin Famotidine (Pepcid Vial) 20 mg 1X ONCE 04/08/20 12:45 04/08/20 12:46 UNV Ketorolac Tromethamine (Toradol 15mg Vial) 15 mg 1X ONCE 04/08/20 12:45 04/08/20 12:46 UNV Ondansetron HCl (Zofran) 4 mg 1X ONCE 04/08/20 12:45 04/08/20 12:46 UNV Sodium Chloride 1,000 ml @ 1,000 mls/hr 1X ONCE 04/08/20 12:45 04/08/20 13:44 UNV Allergies: Allergies: Allergies Coded Allergies Type Severity Reaction Last Updated Verified No Known Drug Allergies 09/20/19 No Physical Exam: PE: Constitutional: Well developed, well nourished, mild acute distress, non-toxic appearance HENT: Normocephalic, atraumatic Eyes: PERRL, EOMI, conjunctiva normal, no discharge Neck: Normal range of motion, no tenderness, supple Lungs & Thorax: No respiratory distress, equal chest rise and fall Abdomen: Soft, tenderness to light palpation in epigastrium Skin: Warm, dry, no erythema, no rash Back: No tenderness, no CVA tenderness Extremities: No tenderness, ROM intact, no edema Neurologic: Alert and oriented X 3, normal motor function, normal sensory function, no focal deficits noted, no tremors Psychologic: Affect normal, judgment normal Current Patient Data: Vital Signs: Vital Signs Date Time Temp Pulse Resp B/P (MAP) Pulse Ox O2 Delivery O2 Flow Rate FiO2 04/08/20 12:17 98.0 79 16 127/91 (103) 98 Room Air EKG: EKG: Performed on 04/08/2020 at 13:03:25. Read at 13:05. [id number] Intervals - MI 146ms, QRS 90ms, QT 434ms, QTc 421ms Interpretation: Sinus rhythm, no abnormalities Course & Med Decision Making: Course & Med Decision Making Ms. Casillas is a 29yo Female who presents with abdominal pain localized to epigastrium. Patient reports worsening pain that began this morning after ETOH binge. PE was remarkable for epigastric tenderness to light palpation without rebound tenderness. Patient did not exhibit any tremors during examination. Cardiac enzymes and EKG were ordered to rule out myocardial infarction. Pain control through ketorlac was ordered along with IV fluids. Patient stable for discharge with outpatient follow-up with PCP. Discussed findings and plan with patient, who acknowledges understanding and agreement. Surjit Disclaimer: Surjit Disclaimer: This electronic medical record was generated, in whole or in part, using a voice recognition dictation system. Departure Departure: Impression: Primary Impression: Abdominal pain Qualified Codes: R10.13 - Epigastric pain Additional Impression: Alcohol abuse Disposition: 01 DC HOME SELF CARE/HOMELESS Condition: STABLE Referrals: PCP,NO (PCP) ANT VELÁZQUEZ MD Patient Instructions: Abdominal Pain, [id number], Alcohol and Drug Addiction, Finding Treatment, Alcoholic Gastritis-Brief, How Much is Too Much Alcohol, [id number] Additional Instructions: Please seek help for your alcohol addiction. Use your previously prescribed nausea medication as needed. Scripts Hyoscyamine Sulfate (LEVSIN-SL) 0.125 Mg Tab.subl 1 MG SL Q4-6HRS PRN for PAIN, #20 TAB Prov: MAX GARVIN DO 04/08/20 Famotidine (PEPCID) 20 Mg Tablet 1 TAB PO BID for Gastritis for 7 Days, #14 TAB Prov: MAX GARVIN DO 04/08/20 MAX GARVIN DO Apr 08, 2020 12:50
[2020-04-08 12:58] LABS: BASO % 0 % (0-3); EOS % 0 % (0-3); HEMATOCRIT 34.2 % (36.0-47.0); HEMOGLOBIN 10.9 g/dL (12.0-15.5); LYMPH # 2.1 x10^3/uL (1.0-4.8); LYMPH % 45 % (24-48); MEAN CORPUSCULAR HEMOGLOBIN 27 pg (25-35); MEAN CORPUSCULAR HGB CONC 32 g/dL (31-37); MEAN CORPUSCULAR VOLUME 83 fL (79-100); MONO # 0.4 x10^3/uL (0.0-1.1); MONO % 9 % (0-9); NEUT # 2.1 x10^3uL (1.8-7.7); NEUT % 46 % (31-73); PLATELET COUNT 311 x10^3/uL (140-400); RED BLOOD COUNT 4.11 x10^6/uL (3.50-5.40); RED CELL DISTRIBUTION WIDTH 19.4 % (11.5-14.5); WHITE BLOOD COUNT 4.7 x10^3/uL (4.0-11.0)
[2020-04-08 13:03] LABS: ANION GAP 12 (6-14); BLOOD UREA NITROGEN 14 mg/dL (7-20); BUN/CREATININE RATIO 18 (6-20); CALCIUM 8.9 mg/dL (8.5-10.1); CARBON DIOXIDE 25 mmol/L (21-32); CHLORIDE 106 mmol/L (98-107); CREATININE 0.8 mg/dL (0.6-1.0); GFR 101.9; GLUCOSE 138 mg/dL (70-99); POTASSIUM 3.8 mmol/L (3.5-5.1); SODIUM 143 mmol/L (136-145)
[2020-04-08 13:16] LABS: ALBUMIN 3.3 g/dL (3.4-5.0); ALBUMIN/GLOBULIN RATIO 0.8 (1.0-1.7); ALK PHOS 94 U/L (46-116); ALT (SGPT) 45 U/L (14-59); AST (SGOT) 30 U/L (15-37); LIPASE 294 U/L (73-393); MAGNESIUM 1.6 mg/dL (1.8-2.4); TOTAL BILIRUBIN 0.1 mg/dL (0.2-1.0); TOTAL PROTEIN 7.4 g/dL (6.4-8.2)
--- NOTE | 2020-04-08 13:44 | EKG ---
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
[2020-04-08] MEDS ORDERED: diphenhydrAMINE 50 MG/ML VIAL IVP ONE (15:00)
[2020-04-08] MEDS ORDERED: METOCLOPRAMIDE HCL 10 MG/2 ML VIAL. IVP ONE (15:00)
[2020-04-08 15:03] VITALS: BP 151/82
[2020-04-08 15:07] LABS: BARBITURATES NEG (NEG); BENZODIAZEPINES NEG (NEG); CANNABINOIDS NEG (NEG); COCAINE NEG (NEG); METHADONE NEG (NEG); OPIATES NEG (NEG); PHENCYCLIDINE NEG (NEG)
[2020-04-08 15:18] LABS: AMPHETAMINE/METHAMPHETAMINE NEG (NEG)
[2020-04-08 15:20] LABS: BILIRUBIN,URINE NEG (NEG); CLARITY,URINE HAZY; COLOR,URINE YELLOW; GLUCOSE,URINE NEG (NEG)
[2020-04-08 15:21] LABS: BACTERIA,URINE MOD /HPF (0-FEW); NITRITE,URINE NEG (NEG); RBC,URINE 0 /HPF (0-2); SQUAMOUS EPITHELIAL CELL,UR MOD /LPF; UROBILINOGEN,URINE 0.2 mg/dL (0.2 mg/dL)
[2020-04-08] MEDS ORDERED: FAMO-63 PO (15:33)
[2020-04-08] MEDS ORDERED: HYOS0.1265 SL (15:33)
[2020-04-09] MEDS ORDERED: HYDR25TA PO (05:08)
[2020-04-09] MEDS ORDERED: LOSA50TA86 PO (05:08)
[2020-04-09] MEDS ORDERED: AMLO-187 PO (05:08)
== END 2020-04-08 15:39 | disposition home or self-care (01) ==
LOC: ER 12:08
DX: R10.13 Epigastric pain (principal); R11.2 Nausea with vomiting, unspecified; R19.7 Diarrhea, unspecified; F10.10 Alcohol abuse, uncomplicated; F41.9 Anxiety disorder, unspecified; F32.9 Major depressive disorder, single episode, unspecified; I10 Essential (primary) hypertension; F20.9 Schizophrenia, unspecified; K86.1 Other chronic pancreatitis; F19.90 Other psychoactive substance use, unspecified, uncomplicated; Z79.899 Other long term (current) drug therapy
CPT/HCPCS: 36415; 80053; 80307; 81001; 82553; 83690; 83735; 84484; 85025; 85610; 85730; 87086; 93005; 96361; 96374; 96375; 96376; 99284; J1200; J1885; J2405; J2765; J3490; J7030

== ENCOUNTER 2020-04-09 00:18 | Inpatient (IN) | payer MEDICARE ==
[~2020-04-09] VITALS: Ht 157.5 cm; Wt 79.3 kg
[~2020-04-09 00:18] MED LIST changes: +FAMO-63 PO; +HYOS0.1265 SL
[2020-04-09] MEDS ORDERED: CONTRAST GIVEN. MC PRN (00:45)
[2020-04-09] MEDS ORDERED: ONDANSETRON PF 4 MG/2 ML VIAL. IVP ONE (01:00)
[2020-04-09] MEDS ORDERED: IOHEXOL 300 MG/ML 75 ML VIAL. IV ONE (01:00)
[2020-04-09] MEDS ORDERED: IV NORMAL SALINE 1,000ML 1,000 ML IV ONE ×2 (01:00→03:30)
[2020-04-09] MEDS ORDERED: FAMOTIDINE 20 MG/2 ML VIAL IVP ONE ×2 (01:00→03:30)
[2020-04-09] MEDS ORDERED: ONDANSETRON ODT 4 MG TAB.RAPDIS PO ONE ×2 (02:15→03:30)
--- NOTE | 2020-04-09 02:26 | PHYS DOC ---
Past History Past Medical History: Alcoholism, Anxiety, Depression, Hypertension, Pancreatitis, Schizophrenia Past Surgical History: No Surgical History Smoking: Non-smoker Alcohol Use: Heavy Drug Use: Amphetamine General Adult EDM: Chief Complaint: ABDOMINAL PAIN HPI: HPI: 29-year-old female with past medical history of alcohol abuse and pancreatitis presents with report of worsening abdominal pain with associated nausea and vomiting despite being seen in emergency department at [facility] yesterday for similar. Patient had been sober for a period of time and ended up starting to drink again over the past few days. Patient reports she believes this has aggravated her chronic pancreatitis. Medication prescriptions have previously been provided included Pepcid and Levsin SL. IV fluid hydration had previously also been provided. Imaging was held due to patient's report of similar episode and non- peritoneal abdomen. Patient also reports she had been seen at the [facility] as well but was discharged home. Denies any known sick contacts. Denies known exposure to COVID-19. Review of Systems: Review of Systems: Constitutional: Denies fever or chills Eyes: Denies redness or eye pain HENT: Denies nasal congestion or sore throat Respiratory: Denies cough or shortness of breath Cardiovascular: Denies chest pain or palpitations GI: Reports abdominal pain, nausea, and vomiting : Denies dysuria or hematuria Musculoskeletal: Denies back pain or joint pain Integument: Denies rash or skin lesions Neurologic: Denies headache, focal weakness or sensory changes Complete systems were reviewed and found to be within normal limits, except as documented in this note. Current Medications: Current Meds: Current Medications Medications (Trade) Dose Ordered Sig/[facility] Start Time Stop Time Status Last Admin Dose Admin Famotidine (Pepcid Vial) 20 mg 1X ONCE 04/09/20 01:00 04/09/20 01:49 DC Fentanyl Citrate (Fentanyl 2ml Vial) 75 mcg 1X ONCE 04/09/20 02:15 04/09/20 02:16 DC 04/09/20 02:09 75 MCG Info (Do NOT chart on this entry -- for MONITORING) 1 each PRN DAILY PRN 04/09/20 00:45 04/09/20 01:49 DC Iohexol (Omnipaque 300 Mg/ml) 75 ml 1X ONCE 04/09/20 01:00 04/09/20 01:49 DC Ondansetron HCl (Zofran Odt) 4 mg 1X ONCE 04/09/20 02:15 04/09/20 02:16 DC 04/09/20 02:09 4 MG Ondansetron HCl (Zofran) 4 mg 1X ONCE 04/09/20 01:00 04/09/20 01:49 DC Sodium Chloride 1,000 ml @ 1,000 mls/hr 1X ONCE 04/09/20 01:00 04/09/20 01:49 DC Allergies: Allergies: Allergies Coded Allergies Type Severity Reaction Last Updated Verified No Known Drug Allergies 09/20/19 No Physical Exam: PE: Constitutional: Well developed, well nourished, no acute distress, non-toxic appearance HENT: Normocephalic, atraumatic Eyes: Conjunctiva normal, no discharge Neck: Normal range of motion, no tenderness, supple Lungs & Thorax: No respiratory distress, equal chest rise and fall Abdomen: Soft, epigastric and left upper quadrant tenderness, no guarding/rebound tenderness/distention Skin: Warm, dry, no erythema, no rash Back: No tenderness, no CVA tenderness Extremities: No tenderness, ROM intact, no edema Neurologic: Alert and oriented X 3, no focal deficits noted Psychologic: Affect normal, judgment normal Current Patient Data: Vital Signs: Vital Signs Date Time Temp Pulse Resp B/P (MAP) Pulse Ox O2 Delivery O2 Flow Rate FiO2 04/09/20 02:09 Room Air EKG: EKG: [] Radiology/Procedures: Radiology/Procedures: PROCEDURE: CT ABDOMEN PELVIS WO CONTRAST EXAM: CT ABDOMEN/PELVIS WITHOUT CONTRAST. HISTORY: Upper abdominal pain. Pancreatitis. TECHNIQUE: Computed tomography of the abdomen and pelvis was performed without intravenous contrast. One or more of the following individualized dose reduction techniques were utilized for this examination: 1. Automated exposure control. 2. Adjustment of the mA and/or kV according to patient size. 3. Use of iterative reconstruction technique. COMPARISON: 03/28/2020, 01/19/2019. FINDINGS: Lung windows through the visualized portions of the bases reveal an 11 mm nodular groundglass opacity in the lingula on image 6, not clearly changed since 01/19/2019 and likely benign in this demographic. Bone windows reveal no suspicious lesions. There is focal fatty infiltration inferiorly in hepatic segment IVb. The gallbladder, spleen, adrenal glands and kidneys are unremarkable without contrast. There are no pathologically enlarged lymph nodes. There is no small bowel obstruction. The appendix is not inflamed. A small amount of free pelvic fluid may be physiologic or reactive. Stranding about the head and body of the pancreas is consistent with acute appendicitis. There is no drainable collection. There is no biliary dilatation. IMPRESSION: 1. Acute pancreatitis. No drainable collection. Electronically signed by: Toño Camargo MD (04/09/2020 2:36 AM) [facility] Course & Med Decision Making: Course & Med Decision Making Pertinent Imaging studies reviewed. (See chart for details) Patient with past medical history of pancreatitis secondary to alcoholism presents with report of continued pain and nausea despite being seen here at [facility] in the emergency department and being prescribed medications as well as being seen at the [facility]. Patient had recently been drinking alcohol over the last few days. Labs from earlier without elevated lipase. Patient had had interval improvement of her symptoms after IV fluid hydration and nausea medication and pain medication. Imaging was held at that time. Patient also had repeat laboratory data collected at the [facility]. Attempted to obtain new lab work upon patient's arrival for second visit however patient with difficulty obtaining IV access for blood draw. Patient elected to refuse further attempts after being stuck multiple times[facility] abdomen/pelvis with findings consistent for acute panceratitis. Pain/nausea addressed with limited improvement. Patient requiring admission for further evaluation and treatment. Discussed with Dr. Frederick (hospitalist) who is in agreement with admission. Discussed findings and plan with patient, who acknowledges understanding and agreement. Sujrit Disclaimer: Surjit Disclaimer: This electronic medical record was generated, in whole or in part, using a voice recognition dictation system. Departure Departure: Impression: Primary Impression: Pancreatitis Qualified Codes: K85.20 - Alcohol induced acute pancreatitis without necrosis or infection Additional Impression: Intractable nausea and vomiting Disposition: ADMITTED INPT THIS HOSP Admitting Physician: Sara Frederick Condition: STABLE Referrals: PCP,ISAI (PCP) MAX GARVIN DO Apr 09, 2020 02:26
--- NOTE | 2020-04-09 02:39 | RAD ---
EXAM: CT ABDOMEN/PELVIS WITHOUT CONTRAST. HISTORY: Upper abdominal pain. Pancreatitis. TECHNIQUE: Computed tomography of the abdomen and pelvis was performed without intravenous contrast. One or more of the following individualized dose reduction techniques were utilized for this examination: 1. Automated exposure control. 2. Adjustment of the mA and/or kV according to patient size. 3. Use of iterative reconstruction technique. COMPARISON: 03/28/2020, 01/19/2019. FINDINGS: Lung windows through the visualized portions of the bases reveal an 11 mm nodular groundglass opacity in the lingula on image 6, not clearly changed since 01/19/2019 and likely benign in this demographic. Bone windows reveal no suspicious lesions. There is focal fatty infiltration inferiorly in hepatic segment IVb. The gallbladder, spleen, adrenal glands and kidneys are unremarkable without contrast. There are no pathologically enlarged lymph nodes. There is no small bowel obstruction. The appendix is not inflamed. A small amount of free pelvic fluid may be physiologic or reactive. Stranding about the head and body of the pancreas is consistent with acute appendicitis. There is no drainable collection. There is no biliary dilatation. IMPRESSION: 1. Acute pancreatitis. No drainable collection. Electronically signed by: Toño Camargo MD (04/09/2020 2:36 AM) [facility]
[2020-04-09 04:06] VITALS: BP 151/88
[2020-04-09] MEDS: IV NORMAL SALINE 1,000ML 1,000 ML IV SCH ×2 (04:15→13:46)
[2020-04-09] MEDS ORDERED: LOSA50TA86 PO (05:08)
[2020-04-09] MEDS ORDERED: AMLO-187 PO (05:08)
[2020-04-09] MEDS ORDERED: HYDR25TA PO (05:08)
[2020-04-09 05:16] VITALS: BP 162/103
[2020-04-09] MEDS: ONDANSETRON PF 4 MG/2 ML VIAL. IVP PRN ×4 (05:55→19:49)
[2020-04-09 07:19] LABS: BASO % 1 % (0-3); EOS % 1 % (0-3); HEMATOCRIT 31.1 % (36.0-47.0); HEMOGLOBIN 9.9 g/dL (12.0-15.5); LYMPH # 2.4 x10^3/uL (1.0-4.8); LYMPH % 32 % (24-48); MEAN CORPUSCULAR HEMOGLOBIN 26 pg (25-35); MEAN CORPUSCULAR HGB CONC 32 g/dL (31-37); MEAN CORPUSCULAR VOLUME 83 fL (79-100); MONO # 0.9 x10^3/uL (0.0-1.1); MONO % 12 % (0-9); NEUT % 55 % (31-73); PLATELET COUNT 259 x10^3/uL (140-400); RED BLOOD COUNT 3.77 x10^6/uL (3.50-5.40); RED CELL DISTRIBUTION WIDTH 18.7 % (11.5-14.5); WHITE BLOOD COUNT 7.3 x10^3/uL (4.0-11.0)
[2020-04-09 07:30] LABS: ALBUMIN 3.2 g/dL (3.4-5.0); ALBUMIN/GLOBULIN RATIO 0.9 (1.0-1.7); CREATININE 0.9 mg/dL (0.6-1.0); POTASSIUM 3.2 mmol/L (3.5-5.1); TOTAL BILIRUBIN 0.4 mg/dL (0.2-1.0); TOTAL PROTEIN 6.8 g/dL (6.4-8.2)
[2020-04-09] MEDS ORDERED: FLU VACC QS 2020-21(6MOS+)/PF 0.5 ML SYRINGE. VAX IM ONE (09:00)
[2020-04-09 11:13] VITALS: BP 135/90
[2020-04-09 14:33] VITALS: BP 166/96
[2020-04-09] MEDS ORDERED: chlordiazePOXIDE HCL 25 MG CAPSULE PO PRN (14:45)
[2020-04-09] MEDS: MVI, ADULT NO.4 WITH VIT K 10 ML, THIAMINE INJ 100 MG, FOLIC ACID INJ 1 MG in IV NORMAL... IV SCH (15:35)
[2020-04-09 18:52] VITALS: BP 166/98
[2020-04-09 23:27] VITALS: BP 149/97
[2020-04-10] MEDS: POTASSIUM CL 40MEQ D5-0.45NACL 1,000 ML IV SCH ×2 (00:30→01:43)
[2020-04-10 06:46] VITALS: BP 155/99
[2020-04-10 08:38] LABS: HEMOGLOBIN 10.3 g/dL (12.0-15.5); RED BLOOD COUNT 3.83 x10^6/uL (3.50-5.40); RED CELL DISTRIBUTION WIDTH 18.8 % (11.5-14.5); WHITE BLOOD COUNT 4.5 x10^3/uL (4.0-11.0)
[2020-04-10 08:47] LABS: ALBUMIN 2.8 g/dL (3.4-5.0); ALBUMIN/GLOBULIN RATIO 0.8 (1.0-1.7); CALCIUM 6.5 mg/dL (8.5-10.1); CREATININE 0.9 mg/dL (0.6-1.0); POTASSIUM 3.2 mmol/L (3.5-5.1); TOTAL BILIRUBIN 0.4 mg/dL (0.2-1.0); TOTAL PROTEIN 6.4 g/dL (6.4-8.2)
[2020-04-10] MEDS ORDERED: ONDANSETRON PF 4 MG/2 ML VIAL. IVP PRN (09:15)
[2020-04-10] MEDS: MVI, ADULT NO.4 WITH VIT K 10 ML, THIAMINE INJ 100 MG, FOLIC ACID INJ 1 MG in IV NORMAL... IV SCH (09:15)
[2020-04-10 11:25] VITALS: BP 135/90
--- NOTE | 2020-04-10 15:40 | DS ---
DATE OF DISCHARGE: 04/10/2020 HOSPITAL COURSE: The patient has come yet again with a complaint of abdominal pain. Complaining that she has acute pancreatitis. She apparently claimed that she has drank half a pint of alcohol and started complaining of abdominal pain, nausea and vomiting. She was in the Emergency Department on the day before. She stated that she has been sober for a period of time, ended up starting to drink again over the past few days. The patient reports she believes she has aggravated her chronic pancreatitis, medication prescription previously been provided included Pepcid and Levsin sublingual. Imaging was held due to the patient's report of similar episodes in the peritoneal abdomen. The patient also reports she had been seen at the [facility] as well, but was discharged home. Denies any sick contact. Denied any known exposure to COVID-19. Her initial lab work showed her serum lipase was only 371. Her CBC continued to show chronic microcytic hypochromic anemia. She did have a CT scan of the abdomen and pelvis without contrast, which showed that there is stranding about the head and body of the pancreas consistent with acute pancreatitis. There is no drainable collection. There is no biliary dilatation. The patient was admitted and was started on IV fluid and a banana bag together with alcohol withdrawal protocol. When I saw her today, she was resting, slightly propped up in bed, in no apparent distress. She was sleepy, but arousable. She apparently has eaten her lunch, tolerated her food without any difficulty. She has no more pain and would like to go home. PHYSICAL EXAMINATION: GENERAL: When I examined her, she looked well and was clearly in no apparent respiratory distress. No pallor, jaundice, cyanosis or thyromegaly. No jugular venous distention or limb edema. VITAL SIGNS: Her heart rate was 65, blood pressure was 135/90, temperature was 98.4, respiratory rate was 18, and oxygen saturation 100% on room air. HEAD, EYES, EARS, NOSE AND THROAT: Showed normocephalic, atraumatic. NECK: Supple. HEART: Showed normal first and second heart sounds. No gallop or murmur. CHEST: Clear to auscultation. No crepitation or rhonchi. ABDOMEN: Scaphoid, soft, nontender. No guarding or rigidity. No organomegaly. All hernial orifice intact. Bowel sounds normal. NEUROLOGIC: She was sleepy, but arousable. All cranial nerves intact. EXTREMITIES: She moves extremities without difficulty. She ambulates without assistance or assistive devices. Her intake over the last 24 hours was 1300, no output was recorded. LABORATORY WORK: This morning showed a white cell count 4500, hemoglobin 10, hematocrit 32, MCV 84, platelet count 247,000. Her chemistry showed a serum sodium 136, potassium 3.2, chloride was 102, bicarbonate 23, anion gap of 11, BUN 6, creatinine 0.9, estimated GFR was 89 mL per minute. Her glucose 138, calcium was 6.5. Total bilirubin, AST, ALT, alkaline phosphatase were normal. Total protein 6.4, albumin 2.8. Her lipase was 240. DISCHARGE MEDICATIONS: The patient was discharged home to continue on amlodipine besylate 10 mg once a day, famotidine 20 mg twice a day, hydroxyzine 25 mg at bedtime, hyoscyamine sulfate for Levsin 0.125 mg sublingual every 4-6 hours, losartan potassium for Cozaar 50 mg once a day and oxycodone immediate release 5 mg once a day every 8 hours. She was also discharged home on a tapering course of Ativan in the form of 0.5 mg p.o. t.i.d. for 2 days and then 0.5 mg twice a day for 2 days, then 0.5 mg once a day for 2 days for alcohol withdrawal protocol. FINAL DISCHARGE DIAGNOSES: 1. Relapsing chronic pancreatitis. 2. Alcoholism. 3. Amphetamine abuse. 4. Hypertension. DESIREE PETERSON MD DR: LOUANN/chani JOB#: [id number] / [id number]
== END 2020-04-10 17:33 | disposition home or self-care (01) | DRG 439 ==
LOC: ER 00:18 → 1 SOUTH 03:05
PROVIDERS: ADMIT Internal Medicine; ATTEND Internal Medicine
DX: K85.20 Alcohol induced acute pancreatitis without necrosis or infection (principal); E44.0 Moderate protein-calorie malnutrition; K86.1 Other chronic pancreatitis; D50.9 Iron deficiency anemia, unspecified; F10.20 Alcohol dependence, uncomplicated; F15.10 Other stimulant abuse, uncomplicated; F20.9 Schizophrenia, unspecified; I10 Essential (primary) hypertension; F32.9 Major depressive disorder, single episode, unspecified; F41.9 Anxiety disorder, unspecified; Z68.32 Body mass index [BMI] 32.0-32.9, adult
CPT/HCPCS: 36415; 74176; 80053; 83690; 85025; 85027; 90471; 90686; 96372; 96374; 96375; 99285; J2060; J2405; J3010; J3490; J7042; Q0162; J7030

== ENCOUNTER 2020-05-27 09:29 | Inpatient (IN) | payer MEDICARE ==
[~2020-05-27] VITALS: Ht 157.5 cm; Wt 83.0 kg
[~2020-05-27 09:29] MED LIST changes: +HYDR25TA PO
[2020-05-27] MEDS ORDERED: ONDANSETRON PF 4 MG/2 ML VIAL. ONE (09:47)
[2020-05-27] MEDS ORDERED: IV NORMAL SALINE 1,000ML 1,000 ML IV ONE (10:00)
[2020-05-27] MEDS ORDERED: ONDANSETRON PF 4 MG/2 ML VIAL. IVP ONE (10:00)
[2020-05-27 10:03] LABS: BASO % 1 % (0-3); EOS % 0 % (0-3); HEMATOCRIT 39.1 % (36.0-47.0); HEMOGLOBIN 12.6 g/dL (12.0-15.5); LYMPH # 1.7 x10^3/uL (1.0-4.8); LYMPH % 25 % (24-48); MEAN CORPUSCULAR HEMOGLOBIN 27 pg (25-35); MEAN CORPUSCULAR HGB CONC 32 g/dL (31-37); MEAN CORPUSCULAR VOLUME 84 fL (79-100); MONO # 0.5 x10^3/uL (0.0-1.1); MONO % 7 % (0-9); NEUT # 4.6 x10^3uL (1.8-7.7); NEUT % 67 % (31-73); PLATELET COUNT 353 x10^3/uL (140-400); RED BLOOD COUNT 4.65 x10^6/uL (3.50-5.40); RED CELL DISTRIBUTION WIDTH 20.3 % (11.5-14.5); WHITE BLOOD COUNT 6.9 x10^3/uL (4.0-11.0)
[2020-05-27 10:10] LABS: CREATININE 0.9 mg/dL (0.6-1.0); POTASSIUM 3.8 mmol/L (3.5-5.1)
[2020-05-27] MEDS ORDERED: MORPHINE SULFATE 4 MG/ML DISP.SYRIN. IV ONE (10:15)
[2020-05-27 10:16] LABS: ALBUMIN 3.8 g/dL (3.4-5.0); ALBUMIN/GLOBULIN RATIO 0.8 (1.0-1.7); TOTAL BILIRUBIN 0.5 mg/dL (0.2-1.0); TOTAL PROTEIN 8.6 g/dL (6.4-8.2)
--- NOTE | 2020-05-27 10:17 | PHYS DOC ---
Past History Past Medical History: Alcoholism, Anxiety, Depression, Hypertension, Pancreatitis, Schizophrenia Past Surgical History: No Surgical History Smoking: Non-smoker Alcohol Use: Heavy Drug Use: Amphetamine Adult General Chief Complaint Chief Complaint: ABDOMINAL PAIN HPI HPI Patient is a 29-year-old female complaining of epigastric pain. Onset was this morning when waking up. Nothing known makes better, p.o. intake makes worse. She attempted to take leftover oxycodone at home with no relief in pain as she subsequently became nauseated and vomited up the pill. Associated symptoms include epigastric abdominal pain that radiates to her back, nausea, and nonbloody nonbilious emesis that has ensued after every time she is attempted to eat and/or drink today. Patient denies any fever, trauma, recent travel, known COVID-19 contact, chest pain, shortness of breath or urinary symptoms. Patient has history of pancreatitis and feels this is similar to last episode. She does not have known gallbladder disease, no prior abdominal surgeries. States she drank half of 1/5 of rum yesterday evening and ate lots of fatty foods Review of Systems Review of Systems Fourteen body systems of review of systems have been reviewed. See HPI for pertinent positives and negative responses, other arredondo all other systems are negative, non-pertinent or non-contributory Current Medications Current Medications Current Medications Medications (Trade) Dose Ordered Sig/Luis Felipe Start Time Stop Time Status Last Admin Dose Admin Morphine Sulfate (Morphine 4mg Syringe) 4 mg 1X ONCE 05/27/20 10:15 05/27/20 10:16 UNV Ondansetron HCl (Zofran) 4 mg 1X ONCE 05/27/20 10:00 05/27/20 10:01 UNV Sodium Chloride 1,000 ml @ 1,000 mls/hr 1X ONCE 05/27/20 10:00 05/27/20 10:59 UNV Allergies Allergies Allergies Coded Allergies Type Severity Reaction Last Updated Verified No Known Drug Allergies 09/20/19 No Physical Exam Physical Exam Constitutional: Well developed, well nourished, no acute distress, non-toxic appearance. HENT: Normocephalic, atraumatic, bilateral external ears normal, oropharynx moist, no oral exudates, nose normal. Eyes: PERRLA, EOMI, conjunctiva normal, no discharge. Neck: Normal range of motion, no tenderness, supple, no stridor. Cardiovascular: Heart rate regular, sinus rhythm, no murmurs rubs or gallops Lungs & Thorax: Bilateral breath sounds clear to auscultation Abdomen: Bowel sounds normal, soft, epigastric tenderness on palpation with voluntary guarding, no rebound, no masses, no pulsatile masses. Nonsurgical abdomen, no peritoneal signs Skin: Warm, dry, no erythema, no rash. Back: No tenderness, no CVA tenderness. Extremities: No tenderness, no cyanosis, no clubbing, ROM intact, no edema. Neurologic: Alert and oriented X 3, grossly normal motor & sensory function, no focal deficits noted. Psychologic: Tearful affect, judgement normal, mood normal. Current Patient Data Vital Signs Vital Signs Date Time Temp Pulse Resp B/P (MAP) Pulse Ox O2 Delivery O2 Flow Rate FiO2 05/27/20 09:36 97.9 84 16 147/110 (122) 97 Room Air Lab Results Laboratory Tests Test 05/27/20 09:40 White Blood Count 6.9 x10^3/uL (4.0-11.0) Red Blood Count 4.65 x10^6/uL (3.50-5.40) Hemoglobin 12.6 g/dL (12.0-15.5) Hematocrit 39.1 % (36.0-47.0) Mean Corpuscular Volume 84 fL (79-100) Mean Corpuscular Hemoglobin 27 pg (25-35) Mean Corpuscular Hemoglobin Concent 32 g/dL (31-37) Red Cell Distribution Width 20.3 % (11.5-14.5) H Platelet Count 353 x10^3/uL (140-400) Neutrophils (%) (Auto) 67 % (31-73) Lymphocytes (%) (Auto) 25 % (24-48) Monocytes (%) (Auto) 7 % (0-9) Eosinophils (%) (Auto) 0 % (0-3) Basophils (%) (Auto) 1 % (0-3) Neutrophils # (Auto) 4.6 x10^3uL (1.8-7.7) Lymphocytes # (Auto) 1.7 x10^3/uL (1.0-4.8) Monocytes # (Auto) 0.5 x10^3/uL (0.0-1.1) Eosinophils # (Auto) 0.0 x10^3/uL (0.0-0.7) Basophils # (Auto) 0.0 x10^3/uL (0.0-0.2) Platelet Estimate Pending Sodium Level 139 mmol/L (136-145) Potassium Level 3.8 mmol/L (3.5-5.1) Chloride Level 102 mmol/L (98-107) Carbon Dioxide Level 22 mmol/L (21-32) Anion Gap 15 (6-14) H Blood Urea Nitrogen 18 mg/dL (7-20) Creatinine 0.9 mg/dL (0.6-1.0) Estimated GFR (Cockcroft-Gault) 89.0 BUN/Creatinine Ratio 20 (6-20) Glucose Level 143 mg/dL (70-99) H Calcium Level 8.0 mg/dL (8.5-10.1) L Total Bilirubin Pending Aspartate Amino Transferase (AST) Pending Alanine Aminotransferase (ALT) Pending Alkaline Phosphatase Pending Total Protein Pending Albumin Pending Albumin/Globulin Ratio Pending Lipase Pending EKG EKG [] Radiology/Procedures Radiology/Procedures Right upper quadrant abdominal ultrasound History: Reason: CONCERN FOR PANCREATITIS; ABD PAIN; N/V / Comparison: CT abdomen and pelvis without contrast, April 09, 2020. Technique: Transabdominal ultrasound images are obtained. Findings: The pancreas is obscured due to overlying bowel gas. Liver is normal in echogenicity. Right hepatic lobe measures 18.1 cm. Portal flow is hepatopedal. Gallbladder has an unremarkable appearance. Common bile duct caliber is normal measuring 4 mm in diameter. The right kidney measures 10.4 cm in length. There is no hydronephrosis. Visualized portions of the aorta and IVC have normal caliber. IMPRESSION: 1. Pancreas is obscured due to overlying bowel gas. 2. Liver size upper limits of normal. 3. Gallbladder and common bile duct are normal. Electronically signed by: Jude Lam MD (05/27/2020 11:22 AM) [id number] CT abdomen/pelvis with contrast 05/27/2020 11:35 AM INDICATION: Epigastric pain with history of pancreatitis COMPARISON: CT abdomen 04/09/2020 TECHNIQUE: Multiple axial CT images of the abdomen and pelvis were obtained after the intravenous administration of 75 mL Omnipaque 300. Coronal and sagittal reformats are provided. FINDINGS: There is a 9 mm solid noncalcified pulmonary nodule in the lingula. Findings are stable from 03/28/2020. Heart size within normal limits. There is diffuse hepatic steatosis. Focal hypoattenuation along the fissure of ligamentum teres may represent more focal fatty infiltration. Spleen, bilateral adrenal glands, gallbladder, kidneys and bowel are normal in appearance. No bowel obstruction or inflammation. Appendix is normal in appearance. Extensive peripancreatic inflammatory changes are identified compatible with pancreatitis. No organized fluid collection is identified. No suspicious hepatic mass. No vascular pseudoaneurysm is identified. Splenic vein appears patent. There may be reactive inflammation involving the third and fourth portion of the duodenum. IMPRESSION: Acute pancreatitis without organized fluid collection. No vascular complications identified. No significant pleural effusions. 9 mm solid noncalcified pulmonary nodule in the inferior lingula is stable dating back to 03/15/2019. CT chest 24 months may be of benefit to ensure stability and benign etiology. Electronically signed by: Arely Coyle MD (05/27/2020 11:56 AM) [facility] Heart Score HEART Score for Chest Pain: HEART Score for Chest Pain Response (Comments) Value History Slighlty/Non-Suspicious 0 Age < 45 0 Risk Factors 1 or 2 Risk Factors 1 Total 1 Risk Factors: Risk Factors: DM, Current or recent (<one month) smoker, HTN, HLP, family history of CAD, obesity. Risk Scores: Risk Factors: DM, Current or recent (<one month) smoker, HTN, HLP, family history of CAD, obesity. Course & Med Decision Making Course & Med Decision Making Pertinent Labs and Imaging studies reviewed. (See chart for details) Discussed most likely diagnosis of pancreatitis likely due to alcohol abuse yesterday evening. Patient responded to ER intervention but this did not adequately resolve her condition. She will require admission I talked to Dr. Brown who accepted patient under his care at [facility] I updated patient on proposed plan of care and she was amenable for admission, all questions and concerns addressed prior to ER transport to [facility] for admission Surjit Disclaimer Dragon Disclaimer This electronic medical record was generated, in whole or in part, using a voice recognition dictation system. Departure Departure: Impression: Primary Impression: Alcohol-induced pancreatitis Disposition: 09 ADMITTED INPT THIS HOSP Admitting Physician: Shamar Brown Condition: STABLE Referrals: PCP,ISAI (PCP) GREG TRACY DO May 27, 2020 10:17
[2020-05-27 10:36] LABS: ANISOCYTOSIS MOD
--- NOTE | 2020-05-27 11:24 | RAD ---
Right upper quadrant abdominal ultrasound History: Reason: CONCERN FOR PANCREATITIS; ABD PAIN; N/V / Comparison: CT abdomen and pelvis without contrast, April 09, 2020. Technique: Transabdominal ultrasound images are obtained. Findings: The pancreas is obscured due to overlying bowel gas. Liver is normal in echogenicity. Right hepatic lobe measures 18.1 cm. Portal flow is hepatopedal. Gallbladder has an unremarkable appearance. Common bile duct caliber is normal measuring 4 mm in diameter. The right kidney measures 10.4 cm in length. There is no hydronephrosis. Visualized portions of the aorta and IVC have normal caliber. IMPRESSION: 1. Pancreas is obscured due to overlying bowel gas. 2. Liver size upper limits of normal. 3. Gallbladder and common bile duct are normal. Electronically signed by: Jude Lam MD (05/27/2020 11:22 AM) [id number]
[2020-05-27] MEDS ORDERED: IOHEXOL 300 MG/ML 75 ML VIAL. IV ONE (11:30)
--- NOTE | 2020-05-27 11:58 | RAD ---
PQRS Compliance Statement: One or more of the following individualized dose reduction techniques were utilized for this examinat ion: 1. Automated exposure control 2. Adjustment of the mA and/or kV according to patient size 3. Use of iterative reconstruction technique CT abdomen/pelvis with contrast 05/27/2020 11:35 AM INDICATION: Epigastric pain with history of pancreatitis COMPARISON: CT abdomen 04/09/2020 TECHNIQUE: Multiple axial CT images of the abdomen and pelvis were obtained after the intravenous adm inistration of 75 mL Omnipaque 300. Coronal and sagittal reformats are provided. FINDINGS: There is a 9 mm solid noncalcified pulmonary nodule in the lingula. Findings are stable from 03/28/20 20. Heart size within normal limits. There is diffuse hepatic steatosis. Focal hypoattenuation along the fissure of ligamentum teres may represent more focal fatty infiltration. Spleen, bilateral adrena l glands, gallbladder, kidneys and bowel are normal in appearance. No bowel obstruction or inflammati on. Appendix is normal in appearance. Extensive peripancreatic inflammatory changes are identified compatible with pancreatitis. No organiz ed fluid collection is identified. No suspicious hepatic mass. No vascular pseudoaneurysm is identifi ed. Splenic vein appears patent. There may be reactive inflammation involving the third and fourth po rtion of the duodenum. IMPRESSION: Acute pancreatitis without organized fluid collection. No vascular complications identified. No signi ficant pleural effusions. 9 mm solid noncalcified pulmonary nodule in the inferior lingula is stable dating back to 03/15/2019. CT chest 24 months may be of benefit to ensure stability and benign etiology. Electronically signed by: Arely Coyle MD (05/27/2020 11:56 AM) [facility]
[2020-05-27] MEDS ORDERED: MORPHINE SULFATE 2 MG/ML DISP.SYRIN. IVP PRN (12:15)
[2020-05-27 12:56] LABS: PLT ESTIMATE ADEQUATE (ADEQUATE)
[2020-05-27 14:40] LABS: BILIRUBIN,URINE NEG (NEG); CLARITY,URINE CLEAR; COLOR,URINE YELLOW; GLUCOSE,URINE NEG (NEG); NITRITE,URINE NEG (NEG); UROBILINOGEN,URINE 0.2 mg/dL (0.2 mg/dL)
[2020-05-27 14:41] LABS: BACTERIA,URINE FEW /HPF (0-FEW); SQUAMOUS EPITHELIAL CELL,UR MOD /LPF
--- NOTE | 2020-05-27 14:52 | HP ---
ADMIT DATE: 05/27/2020 ATTENDING PHYSICIAN: Dr. Velazquez. CHIEF COMPLAINT: Abdominal pain. HISTORY OF PRESENT ILLNESS: The patient is a 29-year-old female well known to us from multiple previous admissions. I looked at the old records, there are 8 admissions this past year alone for alcohol-related pancreatitis. She is still drinking. She has pancreatitis again. She had a new onset this morning epigastric pain, nausea, nonbilious emesis anytime she tries to take a drink anything or eat anything. In the ED, the workup showed the lipase not too particularly elevated, but the CT scan showed extensive peripancreatic inflammatory process. No phlegmon or pseudocyst were identified. She has guarding. She is tender on palpation. She is admitted in with acute pancreatitis related to continuous alcohol use. Her past medical history is significant for chronic alcoholism, generalized anxiety, depression, hypertension, pancreatitis, schizoaffective disorder, noncompliance of meds. She is a . She normally gets her medicines through the [facility]. She does not want to go to the [facility] for admission. She has, however, had some finance and administration manager worked with her and she is on a waiting list to get into their domiciliary. I did not ask whether she is homeless at this time. SOCIAL HISTORY: She is a nonsmoker. Alcohol use is heavy. She also uses drugs abuse including methamphetamine. ALLERGIES: She has no known drug allergies. OTHER PAST MEDICAL HISTORY: Significant for hypertension and pancreatic insufficiency. CURRENT MEDICATIONS: Reviewed. She was taking amlodipine, losartan and had some leftover hydrocodone. FAMILY HISTORY: Noncontributory. REVIEW OF SYSTEMS: Significant for the nausea, GI symptoms, nonbilious emesis. No COVID exposure. She is still drinking heavily. Her alcohol of choice is rum. All other systems reviewed and turned to be negative. PHYSICAL EXAMINATION: GENERAL: When I saw her, this is a pleasant young female. INITIAL VITAL SIGNS: In the ED showed a blood pressure 155/106 mmHg, pulse is 82 and regular, temperature 97.9, oxygen saturating 99% on room air. HEENT: Head is without trauma. Pupils are reactive. Sclerae was nonicteric. Oropharynx is clear. Mucous membranes dry. NECK: Supple, no bruits, stridor or thyromegaly. LUNGS: Good breath sounds without any wheezing. CARDIOVASCULAR: Showed regular heart tones. Hyperdynamic precordium. No gallops or murmurs. Peripheral pulses are palpable and full. ABDOMEN: Minimal guarding. Some diffuse tenderness on deep palpation. Hypoactive bowel sounds. There is no rebound tenderness. No masses palpated. EXTREMITIES: Showed no cyanosis. NEUROLOGIC: Focally intact. Speech is fluent. Affect is a bit flat. She moves all extremities. [employer] C[employer] were intact. SKIN: Otherwise warm and dry. PERTINENT LABORATORY AND X-RAY STUDIES: The CT of the abdomen showed extensive peripancreatic inflammatory changes compatible with acute pancreatitis. No organized fluid collection. No suspicious hepatic masses, no vascular aneurysms identified. Splenic veins appear patent. There is reactive inflammation involving the third and fourth portion of the duodenum. Chest x-ray is otherwise clear. LABORATORY DATA: Hemoglobin is maintained at 12.6 g/dL with white count of 6900. Electrolytes showed a sodium 139 mEq, potassium 3.8, nonfasting blood sugar 143. Initial lipase was 524. Creatinine is 0.9 mg/dL. ASSESSMENT: 1. A 29-year-old female with acute pancreatitis. 2. Chronic alcoholism with continued abuse. 3. Labile hypertension. 4. Multiple admissions for pancreatitis. PLAN: 1. Admit to the inpatient unit. 2. N.p.o. 3. Pain and nausea control. 4. Advance diet as tolerated. 5. Continue home meds. MARCIA VELAZQUEZ MD DR: MARCIN/cahni JOB#: [id number] / [id number]
[2020-05-27 15:35] VITALS: BP 146/94
[2020-05-27] MEDS: IV NORMAL SALINE 1,000ML 1,000 ML IV SCH (15:55)
[2020-05-27] MEDS: ONDANSETRON PF 4 MG/2 ML VIAL. IVP PRN ×2 (15:55→20:07)
[2020-05-27] MEDS: MORPHINE SULFATE 4 MG/ML DISP.SYRIN. IV PRN ×4 (15:56→23:22)
[2020-05-27 19:09] VITALS: BP 145/91
[2020-05-27 23:14] VITALS: BP 132/70
[2020-05-28] MEDS: IV NORMAL SALINE 1,000ML 1,000 ML IV SCH ×3 (01:45→21:45)
[2020-05-28] MEDS: MORPHINE SULFATE 4 MG/ML DISP.SYRIN. IV PRN ×6 (03:20→21:55)
[2020-05-28] MEDS: ONDANSETRON PF 4 MG/2 ML VIAL. IVP PRN ×2 (03:22→09:42)
[2020-05-28 05:30] VITALS: BP 135/90
--- NOTE | 2020-05-28 09:39 | PN ---
DATE: 05/28/2020 ATTENDING PHYSICIAN: Dr. Velazquez. SUBJECTIVE: She is feeling a little better. Pain and nausea was controlled with morphine and Zofran. OBJECTIVE FINDINGS: VITAL SIGNS: Blood pressure is 135/90, pulse 60 and regular, temperature 97.8, oxygen saturation 98% on room air. HEENT: Head is without trauma. Pupils are reactive. Sclerae nonicteric. Oropharynx clear. NECK: Supple, no bruits identified. LUNGS: Clear. CARDIOVASCULAR: Showed regular heart tones. ABDOMEN: Soft. Minimal guarding, no rebound tenderness. Bowel sounds are normoactive. EXTREMITIES: Showed no cyanosis or edema. NEUROLOGIC: Focally intact. ASSESSMENT: 1. A 29-year-old female with acute pancreatitis. 2. Chronic alcoholism. 3. Labile hypertension. 4. Multiple admissions with pancreatitis in the past. 5. Continued alcohol addiction. 6. Noncompliance of meds. PLAN: 1. Advance diet to full liquids. 2. Pain and nausea control. 3. Continue home medications. MARCIA VELAZQUEZ MD DR: MARCIN/chani JOB#: [id number] / [id number]
[2020-05-28 12:10] VITALS: BP 132/86
[2020-05-28 16:11] VITALS: BP 126/84
[2020-05-28 20:18] VITALS: BP 124/79
[2020-05-28 23:38] VITALS: BP 123/77
[2020-05-29] MEDS: MORPHINE SULFATE 4 MG/ML DISP.SYRIN. IV PRN (02:13)
[2020-05-29 06:09] VITALS: BP 127/77
--- NOTE | 2020-05-29 18:36 | DS ---
DATE OF DISCHARGE: 05/29/2020 ATTENDING PHYSICIAN: Dr. Velazquez FINAL DISCHARGE DIAGNOSES: 1. Acute alcoholic pancreatitis. 2. Chronic alcoholism with continued abuse. 3. Labile hypertension. 4. Multiple previous admissions for pancreatitis. 5. Underlying depression with anxiety. 6. Posttraumatic stress disorder. HISTORY AND PHYSICAL: This 29-year-old female is a . She gets her medicine at the [facility]. She is depressed. She is a chronic alcoholic, continues to drink. We have had multiple admissions in the last year at this hospital with similar issue. She was admitted again with abdominal pain, nausea, evidence of acute pancreatitis related to alcohol. PHYSICAL EXAMINATION: Please see the dictated note. PERTINENT LABORATORY AND X-RAY STUDIES: The CT of the abdomen showed acute pancreatitis with extensive peripancreatic inflammatory changes. No abscess or pseudocyst was identified. No obstruction identified. Hemoglobin on admission was 12.6 g/dL with white count of 6900. Initial lipase was only 524. Electrolytes within normal range. Creatinine is 0.9 mg/dL. COURSE IN THE HOSPITAL: The patient was admitted. She was kept n.p.o. Pain and nausea control, IV hydration. She got better. Diet was advanced gradually and she was able to tolerate a bland diet. On the third hospital day, her vital signs were quite stable. She was sober. She was contrite. Blood pressure is 127/77, pulse is 55 and regular, temperature 97.9 degrees Fahrenheit, oxygen saturation 97% on room air. She is discharged home with a script for Percocet 10/325 one p.o. q. 6 hours as needed for pain. In addition, Prozac 40 mg daily. Continuation of her other meds including amlodipine 10 mg daily, Pepcid daily, hydroxyzine, Levsin, losartan 50 mg daily. Strong encouragement to avoid further alcohol use and to see her psychiatrist for continued psychotherapy whether or not she will quit drinking remains to be seen. The patient was then discharged from our hospital in stable condition with explicit instructions and followup care. Total discharge time spent 39 minutes. MARCIA VELAZQUEZ MD DR: MARCIN/chani JOB#: [id number] / [id number]
== END 2020-05-29 09:57 | disposition home or self-care (01) | DRG 440 ==
LOC: ER 09:29 → 1 SOUTH 12:15
PROVIDERS: ADMIT Hospitalist; ATTEND Hospitalist
DX: K85.20 Alcohol induced acute pancreatitis without necrosis or infection (principal); F41.8 Other specified anxiety disorders; F41.1 Generalized anxiety disorder; F25.9 Schizoaffective disorder, unspecified; F10.10 Alcohol abuse, uncomplicated; Y90.9 Presence of alcohol in blood, level not specified; F43.10 Post-traumatic stress disorder, unspecified; I10 Essential (primary) hypertension; Z79.899 Other long term (current) drug therapy; Z91.14 Patient's other noncompliance with medication regimen
CPT/HCPCS: 36415; 74177; 76705; 80053; 81001; 83690; 85025; J2270; J2405; Q9967; J7030

== ENCOUNTER 2020-07-19 10:40 | Emergency (ER) | payer MEDICARE ==
[2020-07-19] MEDS ORDERED: DEXAMETHASONE 4 MG TABLET PO ONE (11:28)
[2020-07-19] MEDS ORDERED: cefTRIAXone IM 500 MG VIAL. IM ONE (11:28)
[2020-07-19 13:12] LABS: BACTERIA,URINE MANY /HPF (0-FEW); BILIRUBIN,URINE NEG (NEG); CLARITY,URINE CLOUDY; COLOR,URINE AMBER; GLUCOSE,URINE NEG (NEG); NITRITE,URINE NEG (NEG); WBC,URINE >40 /HPF (0-4)
[2020-07-19 13:13] LABS: HYALINE CASTS, URINE FEW /HPF; SQUAMOUS EPITHELIAL CELL,UR MANY /LPF
--- NOTE | 2020-07-19 13:47 | PHYS DOC ---
Past History Past Medical History: Alcoholism, Anxiety, Depression, Hypertension, Pancreatitis, Schizophrenia Past Surgical History: No Surgical History Smoking: Non-smoker Alcohol Use: Heavy Drug Use: Amphetamine General Adult EDM: Chief Complaint: SORE THROAT HPI: HPI: Patient is a [age] year old [sex] who presents with [] Current Medications: Current Meds: Current Medications Medications (Trade) Dose Ordered Sig/Luis Felipe Start Time Stop Time Status Last Admin Dose Admin Ceftriaxone Sodium (Rocephin Im) 500 mg 1X ONCE 07/19/20 11:28 07/19/20 12:37 DC Dexamethasone (Decadron) 10 mg 1X ONCE 07/19/20 11:28 07/19/20 12:37 DC Allergies: Allergies: Allergies Coded Allergies Type Severity Reaction Last Updated Verified No Known Drug Allergies 09/20/19 No Current Patient Data: Labs: Laboratory Tests Test 07/19/20 11:20 07/19/20 11:45 Group A Streptococcus Rapid Negative (NEGATIVE) Urine Collection Type Void Urine Color Carmen Urine Clarity Cloudy Urine pH 6.0 Urine Specific [place] >=1.030 Urine Protein 30 mg/dl (NEG-TRACE) Urine Glucose (UA) Neg mg/dL (NEG) Urine Ketones (Stick) Neg mg/dL (NEG) Urine Blood Neg (NEG) Urine Nitrite Neg (NEG) Urine Bilirubin Neg (NEG) Urine Urobilinogen Dipstick 1.0 mg/dL (0.2 mg/dL) Urine Leukocyte Esterase Trace (NEG) Urine RBC 1-2 /HPF (0-2) Urine WBC >40 /HPF (0-4) Urine Squamous Epithelial Cells Many /LPF Urine Bacteria Many /HPF (0-FEW) Urine Hyaline Casts Few /HPF Urine Mucus Marked /LPF EKG: EKG: [] Radiology/Procedures: Radiology/Procedures: [] Heart Score: Risk Factors: Risk Factors: DM, Current or recent (<one month) smoker, HTN, HLP, family history of CAD, obesity. Risk Scores: Score 0 - 3: 2.5% MACE over next 6 weeks - Discharge Home Score 4 - 6: 20.3% MACE over next 6 weeks - Admit for Clinical Observation Score 7 - 10: 72.7% MACE over next 6 weeks - Early Invasive Strategies Course & Med Decision Making: Course & Med Decision Making Pertinent Labs and Imaging studies reviewed. (See chart for details) DUE TO PROLONGED EMR DOWNTIME/HOSPITAL POLICY, PTS' FULL CHART (INCLUDING, HISTORY, ROS, PHYSICAL EXAM, IMPRESSION, IMAGING/LABS/ORDERS, DISPOSITION AND DISCHARGE PAPERS) -WAS DOCUMENTED VIA PAPER CHARTING. - PLEASE REFER TO PAPER DOCUMENTS FOR FULL INFORMATION REGARDING PTS' ED VISIT. Dragon Disclaimer: Dragon Disclaimer: This electronic medical record was generated, in whole or in part, using a voice recognition dictation system. Departure Departure: Impression: Primary Impression: UTI (urinary tract infection) Additional Impression: Pharyngitis Disposition: 01 DC HOME SELF CARE/HOMELESS Condition: STABLE Referrals: PCPISAI (PCP) HAIDER DELACRUZ DO Jul 19, 2020 13:47
[2020-07-20 20:21] LABS: CHLAMYDIA PROBE Negative (Negative)
== END 2020-07-19 13:30 | disposition home or self-care (01) ==
LOC: ER 10:40
DX: J02.9 Acute pharyngitis, unspecified (principal); N39.0 Urinary tract infection, site not specified; Z20.2 Contact with and (suspected) exposure to infections with a predominantly sexual mode of transmission; I10 Essential (primary) hypertension; F20.9 Schizophrenia, unspecified; F10.20 Alcohol dependence, uncomplicated; Z11.59 Encounter for screening for other viral diseases; Z20.822 Contact with and (suspected) exposure to COVID-19; Y90.9 Presence of alcohol in blood, level not specified
CPT/HCPCS: 36415; 81001; 81025; 87070; 87086; 87491; 87591; 87880; 99283; C9803; J0696; J8540; U0003

== ENCOUNTER 2020-07-23 03:22 | Emergency (ER) | payer MEDICARE ==
[~2020-07-23] VITALS: Ht 157.5 cm; Wt 83.0 kg
--- NOTE | 2020-07-23 03:25 | PHYS DOC ---
Past History Past Medical History: Alcoholism, Anxiety, Depression, Hypertension, Pancreatitis, Schizophrenia (JILLIAN LONG MD) Past Surgical History: No Surgical History (JILLIAN LONG MD) Smoking: Non-smoker Alcohol Use: Heavy Drug Use: Amphetamine (JILLIAN LONG MD) General Adult HPI: HPI: ".. I hurting....really bad ... pain here in my stomach.. .. I ve been short of breath.. for past two weeks.. I got tested for COVID two days ago .. and it was negative..." Patient is a 29 year old female who presents with above history and complaints of epigastric pain and dyspnea. Patient patient does have a past history of alcoholic pancreatitis., Gastritis, IV drug use, tobacco and marijuana use. Patient does consume approximately 1 to 2 pints of vodka a day. Patient denies any intake of bad food. No history of trauma. No history of specific ill contacts. Patient did have a hospital admission in May of this past year for episode of alcoholic pancreatitis. Patient normally follows at the [facility] and obtains her meds at the [facility]. Patient does have a history of hypertension. No recent travel outside [facility] area. Patient last meal was 2 hotdogs last night. Patient has history of anxiety, depression , polysubstance abuse. and schizoaffective disorder. (JILLIAN LONG MD) Review of Systems: Review of Systems: Constitutional: Denies fever or chills Eyes: Denies change in visual acuity HENT: Denies nasal congestion or sore throat Respiratory: Some complaints of shortness of breath-but appears to be related to her epigastric pain Cardiovascular: Denies chest pain or edema GI: Complains of right upper quadrant and epigastric abdominal pain, nausea,. No active vomiting, bloody stools or diarrhea. No history of tarry stools. : Denies dysuria Musculoskeletal: Denies back pain or joint pain Integument: Denies rash Neurologic: Denies headache, focal weakness or sensory changes Endocrine: Denies polyuria or polydipsia Lymphatic: Denies swollen glands Psychiatric: Denies depression or anxiety (JILLIAN LONG MD) Family History: Family History: Noncontributory to presentation (JILLIAN LONG MD) Current Medications: Current Meds: See nursing for home meds (JILLIAN LONG MD) Allergies: Allergies: Allergies Coded Allergies Type Severity Reaction Last Updated Verified No Known Drug Allergies 09/20/19 No (JILLIAN LONG MD) Physical Exam: PE: Constitutional: Moderate acute distress, non-toxic appearance. [] HENT: Normocephalic, atraumatic, bilateral external ears normal, oropharynx moist, no oral exudates, nose normal. [] Eyes: PERRLA, EOMI, conjunctiva normal, no discharge. [] Neck: Normal range of motion, no tenderness, supple, no stridor. [] Cardiovascular:Heart rate regular rhythm, no murmur [] Lungs & Thorax: Bilateral breath sounds equal apex with few scattered wheezes on auscultation [] Abdomen: Bowel sounds hyperactive,, soft, epigastric tenderness, no masses, no pulsatile masses. Rebound to epigastric and right upper quadrant. Skin: Warm, dry, no erythema, no rash. [] Old IV injection scars Back: No tenderness, no CVA tenderness. [] Extremities: No tenderness, no cyanosis, no clubbing, ROM intact, no edema. No true psoas sign or heel tap. No cording. Neurologic: Alert and oriented X 3, normal motor function, normal sensory function, no focal deficits noted. [] Psychologic: Affect anxious, judgement normal, mood normal. [] (JILLIAN LONG MD) EKG: EKG: My interpretation EKG shows a sinus rhythm at 85 bpm. No acute morphology. [] (JILLIAN LONG MD) Radiology/Procedures: Radiology/Procedures: [][address] [address] IMAGING REPORT Signed PATIENT: OSCAR SALCEDO LACCOUNT: [id number] : 1990 LOCATION: ER AGE: 29 SEX: F EXAM STATUS: REG ER ORD. PHYSICIAN: JILLIAN LONG MD REASON: Abdomen pain, nausea, vomiting PROCEDURE: ACUTE ABDOMEN SERIES Acute abdominal series to include a PA chest radiograph 07/23/2020 Clinical History: Abdominal pain and nausea and vomiting. A PA digital radiograph of the chest was obtained. Supine and erect AP digital radiographs of the abdomen/pelvis were obtained. No previous studies are available for comparison. The cardiac and mediastinal silhouettes are within normal limits in size and configuration. No pulmonary infiltrate is seen. No pleural effusion or pneumothorax is noted. Air distention of bowel loops within the left mid abdomen is seen without definite evidence of bowel obstruction. There is no evidence of free air. No radiopaque calculus is seen. Calcifications are seen within the pelvis consistent with phleboliths. The osseous structures are grossly intact. Impression: Nonobstructive bowel gas pattern. Electronically signed by: To Caballero MD (07/23/2020 4:16 AM) [id number] DICTATED AND SIGNED BY: TO CABALLERO MD DATE: 07/23/20414 CC: JILLIAN LONG MD; PCP,NO ~MTH0 0 (JILLIAN LONG MD) Radiology/Procedures: IMAGING REPORT Signed PATIENT: OSCAR SALCEDO LACCOUNT: [id number] : 1990 LOCATION: ER AGE: 29 SEX: F EXAM STATUS: REG ER ORD. PHYSICIAN: JILLIAN LONG MD REASON: Abdomen pain, nausea, vomiting Hx pancreatitis Omni 300 75cc PROCEDURE: CT ABD PELV W/ORAL&IV CONTRAST CT scan of the abdomen and pelvis with contrast 07/23/2020 CLINICAL HISTORY: Abdominal pain, vomiting. TECHNIQUE: After the oral administration contrast the intravenous administration of 75 cc of Omnipaque 300, contiguous, 2.5 mm axial sections were obtained through the abdomen and pelvis. One or more of the following individualized dose reduction techniques were utilized for this study: 1. Automated exposure control. 2. Adjustment of the mA and/or kV according to patient size. 3. Use of iterative reconstruction technique. FINDINGS: Comparison study is dated 05/27/2020. Images of the lung bases demonstrate minimal dependent subsegmental atelectasis bilaterally. The liver is mildly enlarged measuring 25 cm in length. Decreased attenuation liver parenchyma seen consistent with fatty infiltration. The spleen, pancreas, adrenal glands and kidneys are within normal limits. The abdominal aorta tapers normally. The gallbladder is contracted. No free fluid or free air is seen within the abdomen. Air and stool are seen throughout the colon. The appendix is well-visualized and is within normal limits. There is no evidence of bowel obstruction. Images through the pelvis demonstrate the urinary bladder distended with urine. Calcifications are seen within the pelvis consistent with phleboliths. No adnexal mass is seen. No free fluid is seen. Minimal S-shaped curvature of the thoracolumbar spine is seen. IMPRESSION: No acute abnormality is seen. Electronically signed by: To Caballero MD (07/23/2020 6:49 AM) [id number] DICTATED AND SIGNED BY: TO CABALLERO MD DATE: 07/23/20 0645 CC: JILLIAN LONG MD; PCP,NO ~MTH0 0 Impressions: 0 criteria No need for further workup, as <2% chance of PE. If no criteria are positive and clinicians pre-test probability is <15%, PERC Rule criteria are satisfied. (HAIDER DELACRUZ DO) Heart Score: HEART Score for Chest Pain: HEART Score for Chest Pain Response (Comments) Value History Slighlty/Non-Suspicious 0 ECG Normal 0 Age < 45 0 Risk Factors 1 or 2 Risk Factors 1 Troponin < Normal Limit 0 Total 1 Risk Factors: Risk Factors: DM, Current or recent (<one month) smoker, HTN, HLP, family history of CAD, obesity. Risk Scores: Score 0 - 3: 2.5% MACE over next 6 weeks - Discharge Home Score 4 - 6: 20.3% MACE over next 6 weeks - Admit for Clinical Observation Score 7 - 10: 72.7% MACE over next 6 weeks - Early Invasive Strategies (JILLIAN LONG MD) Course & Med Decision Making: Course & Med Decision Making Pertinent Labs and Imaging studies reviewed. (See chart for details) CT pending at shift change. Pt. endorsed to Dr. Delacruz at shift change Impression: 1. Abdomen Pain 2. Alcohol abuse =41 tonight 3. Elevated LFT's AST 89, ALT 127, Alk Phos. 123 4. DM = glucose 221 5. Methamphetamine abuse [] (JILLIAN LONG MD) Course & Med Decision Making Patient presents the ED with right upper quadrant and epigastric abdominal pain. Also reports intermittent episodes of shortness of breath, tested for Covid 3 days ago. No h/o tobacco use, asthma or known covid (lives with father who's in healthcare and testing weekly). Chest x-ray with no acute infiltrates. Perc rule negative (speaks in full sentences, no resp distress). No associated leg swelling. Is on antibiotics for UTI. Labs with nonspecific transaminitis, ALT is greater than AST which suggests nonalcoholic etiology, consider hepatitis. Reports IVDU 6 yrs ago, smokes meth. CT abdomen pelvis consistent with hepatomegaly, pancreas within normal limits, no acute process. Drug screen positive for methamphetamines and alcohol. I encouraged completion of patient's antibiotics and urinalysis follow-up with primary care physician in 1 week to evaluate LFTS/check for hepatitis. Will discharge home with strict ED return precautions were given for increased work of breathing, worsening shortness of breath or severe abdominal or back pain. Encouraged urgent outpatient follow-up with PMD and GI. Life-threatening processes were considered but are low suspicion at this time, given history, physical exam and ED workup. Pt was educated on all prescription medications and adverse effects. All patient's questions were answered and pt was stable at time of discharge. Life/limb-threatening differential includes but is not limited to, ACS, dys rhythmia, pneumothorax or hemothorax, pulmonary embolus, pneumonia, bronchoconstriction, pulmonary edema, angioedema, epiglottitis, tracheitis, Timur's angina, RPA/CHIEF ULTRASOUND TECHNOLOGIST, anaphylaxis, angioedema, cardiac tamponade or murmurs, pericarditis, myocarditis, poisoning or toxicity, sepsis or autoimmune/neurologic disease, surgical abdomen (appendicitis, cholecystitis, ischemic bowel, strangulated hernia, etc), bowel obstruction or volvulus, bladder outlet obstruction, gastrointestinal bleeding, inflammatory bowel disease, peptic ulcer disease, sepsis, diverticular disease, ureterolithiasis, nephrolithiasis, ovarian torsion, ectopic , vaginal hemorrhage, or genitourinary infection. I spoken with the patient and her caregivers. I explained the patient's c ondition, diagnoses and treatment plan based on the information available to me at this time. I have answered the patient and her caregiver's questions and addressed any concerns. The patient and her caregivers have a good understanding of patient's diagnosis, condition and treatment plan as can be expected at this point. Vital signs have been stable. Patient's condition is stable and appropriate for discharge from the emergency department. Patient will pursue further outpatient evaluation with primary care physician or other designated or consulting physician as outlined in the discharge instructions. The patient and/or caregivers are agreeable to this plan of care and follow-up instructions have been explained in detail. The patient and/or caregivers have received these instructions in written form and have expressed an understanding of the discharge instructions. The patient and/or caregivers are aware that any significant change of condition or worsening of symptoms should prompt immediate return to this or the closest emergency department or call to [facility]. (HAIDER SAHNI DO) Surjit Disclaimer: Surjit Disclaimer: This electronic medical record was generated, in whole or in part, using a voice recognition dictation system. (JILLIAN LONG MD) Departure Departure: Impression: Primary Impression: Abdominal pain Additional Impressions: Alcohol abuse Hepatomegaly Transaminitis Dyspnea Disposition: 01 DC HOME SELF CARE/HOMELESS Condition: STABLE Referrals: PCP,NO (PCP) FOLLOW UP WITH FAMILY MEDICINE: [facility], [place] [address] [employer] [address] [address] [address], [facility] Instructions: Abdominal Migraine, Hepatomegaly, Shortness of Breath Additional Instructions: FOLLOW UP WITH GASTROENTEROLOGY: [facility] [address], [address], [place] [address] EMERGENCY DEPARTMENT GENERAL DISCHARGE INSTRUCTIONS Thank you for coming to [facility] (ED) today and trusting us with you care. We trust that you had a positivie experience in our Emergency Department. If you wish to speak to the department management, you may call the director at [phone]. YOUR FOLLOW UP INSTRUCTIONS ARE FOLLOWS: 1. Do you have a private Doctor? If you do not have a private doctor, please ask for a resource list of physicians or clinics that may be able to assist you with follow up care. 2. The Emergency Physician has interpreted your x-rays. The X-Ray specialist will also review them. If there is a change in the findings, you will be notified in 48 hours when at all possible. 3. A lab test or culture has been done, your results will be reviewed and you will be notified if you need a change in treatment. ADDITIONAL INSTRUCTIONS AND INFORMATION: 1. Your care today has been supervised by a physician who is specially trained in emergency care. Many problems require more than one evaluation for a complete diagnosis and treatment. We recommend that you schedule your follow up appointment as recommended to ensure complete treatment of you illness or injury. If you are unable to obtain follow up care and continue to have a problem, or if your condition worsens, we recommend that you return to the ED. 2. We are not able to safely determine your condition over the phone nor are we able to give sound medical advice over the phone. For these safety reasons, if you call for medical advice we will ask you to come to the ED for further evaluation. 3. If you have any questions regarding these discharge instructions please call the ED at [phone]. SAFETY INFORMATION: In the interest of safety, wellness, and injury prevention; we encourage you to wear your sealbelt, if you smoke; quite smoking, and we encourage family to use a protective helmet for bicycling and other sporting events that present an increased risk for head injury. IF YOUR SYMPTOMS WORSEN OR NEW SYMPTOMS DEVELOP, OR YOU HAVE CONCERNS ABOUT YOUR CONDITION; OR IF YOUR CONDITION WORSENS WHILE YOU ARE WAITING FOR YOUR FOLLOW UP APPOINTMENT; EITHER CONTACT YOUR PRIMARY CARE DOCTOR, THE PHYSICIAN WHOSE NAME AND NUMBER YOU WERE GIVEN, OR RETURN TO THE ED IMMEDIATELY. Dragon Disclaimer This chart was dictated in whole or in part using Voice Recognition software in a busy, high-work load, and often noisy Emergency Department environment. It may contain unintended and wholly unrecognized errors or omissions. (JILLIAN LONG MD) JILLIAN LONG MD Jul 23, 2020 03:25 HAIDER DELACRUZ DO Jul 23, 2020 07:23
--- NOTE | 2020-07-23 03:59 | EKG ---
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
[2020-07-23] MEDS ORDERED: IV RINGERS SOLUTION,LACTATED 1,000 ML IV SCH (04:00)
[2020-07-23] MEDS ORDERED: ONDANSETRON PF 4 MG/2 ML VIAL. IVP ONE ×2 (04:00→05:15)
[2020-07-23] MEDS ORDERED: FAMOTIDINE 20 MG/2 ML VIAL IVP ONE (04:00)
[2020-07-23 04:13] LABS: BASO % 1 % (0-3); EOS % 1 % (0-3); HEMATOCRIT 37.6 % (36.0-47.0); HEMOGLOBIN 12.3 g/dL (12.0-15.5); LYMPH # 2.9 x10^3/uL (1.0-4.8); LYMPH % 56 % (24-48); MEAN CORPUSCULAR HEMOGLOBIN 28 pg (25-35); MEAN CORPUSCULAR HGB CONC 33 g/dL (31-37); MEAN CORPUSCULAR VOLUME 87 fL (79-100); MONO # 0.6 x10^3/uL (0.0-1.1); MONO % 11 % (0-9); NEUT # 1.6 x10^3uL (1.8-7.7); NEUT % 31 % (31-73); PLATELET COUNT 273 x10^3/uL (140-400); RED BLOOD COUNT 4.32 x10^6/uL (3.50-5.40); RED CELL DISTRIBUTION WIDTH 18.3 % (11.5-14.5); WHITE BLOOD COUNT 5.2 x10^3/uL (4.0-11.0)
--- NOTE | 2020-07-23 04:19 | RAD ---
Acute abdominal series to include a PA chest radiograph 07/23/2020 Clinical History: Abdominal pain and nausea and vomiting. A PA digital radiograph of the chest was obtained. Supine and erect AP digital radiographs of the abd omen/pelvis were obtained. No previous studies are available for comparison. The cardiac and mediastinal silhouettes are within normal limits in size and configuration. No pulmon danielle infiltrate is seen. No pleural effusion or pneumothorax is noted. Air distention of bowel loops within the left mid abdomen is seen without definite evidence of bowel obstruction. There is no evidence of free air. No radiopaque calculus is seen. Calcifications are see n within the pelvis consistent with phleboliths. The osseous structures are grossly intact. Impression: Nonobstructive bowel gas pattern. Electronically signed by: To Caballero MD (07/23/2020 4:16 AM) [id number]
[2020-07-23 04:21] LABS: BACTERIA,URINE 0 /HPF (0-FEW); BILIRUBIN,URINE NEG (NEG); CLARITY,URINE CLEAR; COLOR,URINE YELLOW; GLUCOSE,URINE NEG (NEG); NITRITE,URINE NEG (NEG); RBC,URINE 0 /HPF (0-2); SQUAMOUS EPITHELIAL CELL,UR MANY /LPF; UROBILINOGEN,URINE 0.2 mg/dL (0.2 mg/dL)
[2020-07-23 04:25] LABS: CALCIUM 7.5 mg/dL (8.5-10.1); CREATININE 0.7 mg/dL (0.6-1.0); GFR 118.9; POTASSIUM 3.5 mmol/L (3.5-5.1)
[2020-07-23 04:26] LABS: BARBITURATES NEG (NEG); BENZODIAZEPINES NEG (NEG); CANNABINOIDS NEG (NEG); COCAINE NEG (NEG); METHADONE NEG (NEG); OPIATES NEG (NEG); PHENCYCLIDINE NEG (NEG)
[2020-07-23 04:30] LABS: DIRECT BILIRUBIN 0.2 mg/dL (0.0-0.2); TOTAL BILIRUBIN 0.4 mg/dL (0.2-1.0); TOTAL PROTEIN 7.5 g/dL (6.4-8.2)
[2020-07-23 04:40] LABS: AMPHETAMINE/METHAMPHETAMINE POS (NEG)
[2020-07-23] MEDS ORDERED: IOHEXOL 300 MG/ML 75 ML VIAL. IV ONE (05:00)
[2020-07-23] MEDS ORDERED: CONTRAST GIVEN. MC PRN (05:00)
[2020-07-23] MEDS ORDERED: IOHEXOL 240 MG/ML 50ML VIAL. ONE (05:06)
[2020-07-23] MEDS ORDERED: KETOROLAC 30 MG/ML VIAL. IVP ONE (05:15)
--- NOTE | 2020-07-23 06:52 | RAD ---
CT scan of the abdomen and pelvis with contrast 07/23/2020 CLINICAL HISTORY: Abdominal pain, vomiting. TECHNIQUE: After the oral administration contrast the intravenous administration of 75 cc of Omnipaqu e 300, contiguous, 2.5 mm axial sections were obtained through the abdomen and pelvis. One or more of the following individualized dose reduction techniques were utilized for this study: 1. Automated exposure control. 2. Adjustment of the mA and/or kV according to patient size. 3. Use of iterative reconstruction technique. FINDINGS: Comparison study is dated 05/27/2020. Images of the lung bases demonstrate minimal dependent subsegmental atelectasis bilaterally. The liver is mildly enlarged measuring 25 cm in length. Decreased attenuation liver parenchyma seen c onsistent with fatty infiltration. The spleen, pancreas, adrenal glands and kidneys are within normal limits. The abdominal aorta tapers normally. The gallbladder is contracted. No free fluid or free air is seen within the abdomen. Air and stool are seen throughout the colon. The appendix is well-visualized and is within normal limits. There is no evidence of bowel obstruction. Images through the pelvis demonstrate the urinary bladder distended with urine. Calcifications are se en within the pelvis consistent with phleboliths. No adnexal mass is seen. No free fluid is seen. Min imal S-shaped curvature of the thoracolumbar spine is seen. IMPRESSION: No acute abnormality is seen. Electronically signed by: To Caballero MD (07/23/2020 6:49 AM) [id number]
[2020-07-23 07:30] VITALS: BP 163/94
== END 2020-07-23 07:35 | disposition home or self-care (01) ==
LOC: ER 03:22
DX: R10.13 Epigastric pain (principal); R06.02 Shortness of breath; R06.00 Dyspnea, unspecified; F10.10 Alcohol abuse, uncomplicated; R74.01 Elevation of levels of liver transaminase levels; R16.0 Hepatomegaly, not elsewhere classified; F41.9 Anxiety disorder, unspecified; F32.9 Major depressive disorder, single episode, unspecified; I10 Essential (primary) hypertension; F20.9 Schizophrenia, unspecified; K86.1 Other chronic pancreatitis; F19.90 Other psychoactive substance use, unspecified, uncomplicated; Z79.899 Other long term (current) drug therapy
CPT/HCPCS: 36415; 74022; 74177; 80048; 80076; 80307; 81001; 81025; 82150; 82550; 83690; 84484; 85025; 85610; 85730; 93005; 96361; 96374; 96375; 99285; G0480; J1885; J2405; J3490; J7120; Q9967; 86705; 86709; 86803; 87340

== ENCOUNTER 2021-01-20 03:51 | Inpatient (IN) | payer MEDICARE ==
[~2021-01-20] VITALS: Ht 157.5 cm; Wt 80.7 kg
[2021-01-20] MEDS ORDERED: ONDANSETRON PF 4 MG/2 ML VIAL. IVP ONE (04:15)
[2021-01-20] MEDS ORDERED: FAMOTIDINE 20 MG/2 ML VIAL IVP ONE (04:15)
[2021-01-20] MEDS ORDERED: KETOROLAC 15 MG/ML VIAL. IVP ONE (04:15)
[2021-01-20] MEDS ORDERED: MVI, ADULT NO.4 WITH VIT K 10 ML, THIAMINE INJ 100 MG in IV NORMAL SALINE 1,000ML 1,000... IV ONE (04:15)
--- NOTE | 2021-01-20 04:26 | PHYS DOC ---
Past History Past Medical History: Alcoholism, Anxiety, Depression, Hypertension, Pancreatitis, Schizophrenia Past Surgical History: No Surgical History Smoking: Non-smoker Alcohol Use: Heavy Drug Use: Amphetamine General Adult EDM: Chief Complaint: ABDOMINAL PAIN HPI: HPI: 30-year-old female with past medical history of pancreatitis secondary to alcohol abuse presents with report of epigastric abdominal discomfort that started yesterday at 0800 in the morning. Patient does report some associated nausea/vomiting/diarrhea. Patient reports has been drinking 1/5 of vodka daily for the past week. Patient reports pain tonight similar to prior episodes of pancreatitis. Denies any fever or chills. Denies known sick contacts. Denies trauma. Denies . Review of Systems: Review of Systems: Constitutional: Denies fever or chills Eyes: Denies redness or eye pain HENT: Denies nasal congestion or sore throat Respiratory: Denies cough or shortness of breath Cardiovascular: Denies chest pain or palpitations GI: Reports abdominal pain, nausea, vomiting, and diarrhea : Denies dysuria or hematuria Musculoskeletal: Denies back pain or joint pain Integument: Denies rash or skin lesions Neurologic: Denies headache, focal weakness or sensory changes Complete systems were reviewed and found to be within normal limits, except as documented in this note. Current Medications: Current Meds: Current Medications Medications (Trade) Dose Ordered Sig/Luis Felipe Start Time Stop Time Status Last Admin Dose Admin Famotidine (Pepcid Vial) 20 mg 1X ONCE 01/20/21 04:15 01/20/21 04:16 UNV Ketorolac Tromethamine (Toradol 15mg Vial) 15 mg 1X ONCE 01/20/21 04:15 01/20/21 04:16 UNV Multivitamins/ Minerals 10 ml/ Folic Acid 1 mg/ Thiamine HCl 100 mg/Sodium Chloride 1,011.3 ml @ 1,000.187 mls/hr 1X ONCE 01/20/21 04:15 01/20/21 05:15 UNV Ondansetron HCl (Zofran) 4 mg 1X ONCE 01/20/21 04:15 01/20/21 04:16 UNV Allergies: Allergies: Allergies Coded Allergies Type Severity Reaction Last Updated Verified No Known Drug Allergies 09/20/19 No Physical Exam: PE: Constitutional: Well developed, well nourished, anxious, non-toxic appearance HENT: Normocephalic, atraumatic Eyes: Conjunctiva normal, no discharge Neck: Normal range of motion, supple Lungs & Thorax: No respiratory distress, equal chest rise and fall Abdomen: Soft, left upper quadrant tenderness, voluntary guarding, no distention Skin: Warm, dry, no erythema, no rash Back: No tenderness, no CVA tenderness Extremities: No tenderness, ROM intact, no edema Neurologic: Alert and oriented X 3, no focal deficits noted Psychologic: Affect anxious, judgment normal Current Patient Data: Vital Signs: Vital Signs Date Time Temp Pulse Resp B/P (MAP) Pulse Ox O2 Delivery O2 Flow Rate FiO2 01/20/21 03:57 97.7 72 20 140/93 (109) 100 Room Air EKG: EKG: @0431 NSR with PACs at 66npm, NO ST elevation, QRS 88ms, QT/QTc 422/444ms Radiology/Procedures: Radiology/Procedures: PROCEDURE: CT ABD PELV W/ IV CONTRST ONLY CT abdomen and pelvis with contrast PQRS statement: CT scans at this facility use dose reduction including either automated exposure control, iterative reconstructions, and /or weight based radiation dosing via mA and kV modification when appropriate to reduce radiation dose to as low as reasonably achievable. Contrast: 75 mL Isovue-370 intravenous contrast HISTORY: Upper abdominal pain, nausea and vomiting. COMPARISON: CT abdomen and pelvis July 23, 2020 Abdomen findings: At the upper lingula there is a mildly irregular lingula 11 mm subsolid nodule with density somewhat greater than ground glass, similar to the prior exam. Hypodense liver likely fatty. Prominent distention of the gallbladder with a diameter of 4.8 cm. There is exaggerated geographic fatty change at the segment 4 the liver. Acute pancreatitis with edema throughout the gland and mild peripancreatic edema. Kidneys, adrenals, spleen unremarkable. The appendix is negative. No obstruction or inflammation of the upper GI tract. Pelvis findings: Anteverted uterus. Central uterine hypodensity thickness of 1 cm likely fluid or endometrial proliferation. There is a 2 cm hypodensity of the right adnexa which is nonspecific most likely a dominant follicle or cyst. No free fluid at cul-de-sac. There is luminal collapse and wall thickening of the splenic flexure through the descending and rectosigmoid colon. Bladder and bones are unremarkable. IMPRESSION: 1. Acute pancreatitis as described above 2. Prominent distention of the gallbladder. No inflammatory changes of the gallbladder evident. 3. Hypodense liver likely due to steatosis. 4. 2 cm hypodensity of the right ovary, most likely a follicle or cyst. This is new from the prior exam from July 2020. 5. Appendix is negative. 6. Luminal collapse and wall thickening of the splenic flexure through the descending and rectosigmoid colon. This is likely due to muscle spasm. Mild changes of colitis or secondary consideration. 7. 11 mm subsolid nodule is stable from the study from July 2020. This is indeterminate could represent a chronic inflammatory process versus a slowly growing low-grade adenocarcinoma. Follow-up CT imaging in 12 months may be of benefit to document longer term stability. Electronically signed by: Hesham Camarena MD (01/20/2021 5:15 AM) [facility] Heart Score: C/O Chest Pain: N/A Course & Med Decision Making: Course & Med Decision Making Pertinent Labs and Imaging studies reviewed. (See chart for details) Patient presents with report of upper abdominal discomfort with associated nausea/vomiting/diarrhea. History of abusing alcohol for the past week. Patient has history of pancreatitis secondary to her alcohol abuse. Reports pain similar to prior episodes. Pain/nausea addressed. IV fluid hydration provided with banana bag given alcohol abuse. Labs obtained and posted to chart. Lipase WNL. CT abdomen/pelvis with concern for pancreatitis. Patient requiring admission for further evaluation and treatment. Discussed with Dr. Brown (hospitalist) who is in agreement with admission. Discussed findings and plan with patient, who acknowledges understanding and agreement. Surjit Disclaimer: Surjit Disclaimer: This electronic medical record was generated, in whole or in part, using a voice recognition dictation system. Departure Departure: Impression: Primary Impression: Chronic pancreatitis Qualified Codes: K86.0 - Alcohol-induced chronic pancreatitis Additional Impression: Alcohol abuse Disposition: ADMITTED INPATIENT Admitting Physician: Shamar Brown Condition: STABLE Referrals: PCP,ISAI (PCP) MAX GARVIN DO Jan 20, 2021 04:26
[2021-01-20] MEDS ORDERED: IOHEXOL 300 MG/ML 75 ML VIAL. IV ONE (04:30)
[2021-01-20] MEDS ORDERED: FOLIC ACID 1 MG TABLET PO ONE (04:30)
[2021-01-20] MEDS ORDERED: THIAMINE 200 MG/2 ML VIAL. IV ONE (04:36)
[2021-01-20] MEDS ORDERED: MVI, ADULT NO.4 WITH VIT K 10 ML VIAL IV ONE (04:40)
[2021-01-20 04:42] LABS: BASO % 0 % (0-3); EOS % 1 % (0-3); HEMATOCRIT 36.8 % (36.0-47.0); HEMOGLOBIN 11.9 g/dL (12.0-15.5); LYMPH # 3.7 x10^3/uL (1.0-4.8); LYMPH % 55 % (24-48); MEAN CORPUSCULAR HEMOGLOBIN 25 pg (25-35); MEAN CORPUSCULAR HGB CONC 32 g/dL (31-37); MEAN CORPUSCULAR VOLUME 79 fL (79-100); MONO # 0.5 x10^3/uL (0.0-1.1); MONO % 7 % (0-9); NEUT # 2.5 x10^3uL (1.8-7.7); NEUT % 37 % (31-73); PLATELET COUNT 280 x10^3/uL (140-400); RED BLOOD COUNT 4.68 x10^6/uL (3.50-5.40); WHITE BLOOD COUNT 6.7 x10^3/uL (4.0-11.0)
[2021-01-20] MEDS ORDERED: CONTRAST GIVEN. MC PRN (04:45)
--- NOTE | 2021-01-20 04:50 | EKG ---
[address] [address] Test Date: 2021-01-20 Test Time: 04:31:26 Pat Name: OSCAR SALCEDO Department: Room: Gender: F [employer]: LEENA : 1990 Requested By: MAX GARVIN Order Number: [id number] Reading MD: Measurements Intervals [place] Rate: 66 P: 41 NV: 162 QRS: 29 QRSD: 88 T: 33 QT: 422 QTc: 444 Interpretive Statements SINUS RHYTHM ATRIAL PREMATURE COMPLEX(ES) OTHERWISE NORMAL ECG RI6.02 No previous ECG available for comparison
[2021-01-20 04:51] LABS: CALCIUM 7.9 mg/dL (8.5-10.1); CREATININE 0.6 mg/dL (0.6-1.0); GFR 141.1; POTASSIUM 4.2 mmol/L (3.5-5.1)
[2021-01-20 05:08] LABS: ALBUMIN 3.5 g/dL (3.4-5.0); ALBUMIN/GLOBULIN RATIO 0.8 (1.0-1.7); TOTAL BILIRUBIN 0.7 mg/dL (0.2-1.0); TOTAL PROTEIN 8.1 g/dL (6.4-8.2)
--- NOTE | 2021-01-20 05:17 | RAD ---
CT abdomen and pelvis with contrast PQRS statement: CT scans at this facility use dose reduction including either automated exposure cont rol, iterative reconstructions, and /or weight based radiation dosing via mA and kV modification when appropriate to reduce radiation dose to as low as reasonably achievable. Contrast: 75 mL Isovue-370 intravenous contrast HISTORY: Upper abdominal pain, nausea and vomiting. COMPARISON: CT abdomen and pelvis July 23, 2020 Abdomen findings: At the upper lingula there is a mildly irregular lingula 11 mm subsolid nodule with density somewhat greater than ground glass, similar to the prior exam. Hypodense liver likely fatty. Prominent distention of the gallbladder with a diameter of 4.8 cm. There is exaggerated geographic f atty change at the segment 4 the liver. Acute pancreatitis with edema throughout the gland and mild p eripancreatic edema. Kidneys, adrenals, spleen unremarkable. The appendix is negative. No obstruction or inflammation of the upper GI tract. Pelvis findings: Anteverted uterus. Central uterine hypodensity thickness of 1 cm likely fluid or end ometrial proliferation. There is a 2 cm hypodensity of the right adnexa which is nonspecific most lik linnette a dominant follicle or cyst. No free fluid at cul-de-sac. There is luminal collapse and wall thickening of the splenic flexure thr ough the descending and rectosigmoid colon. Bladder and bones are unremarkable. IMPRESSION: 1. Acute pancreatitis as described above 2. Prominent distention of the gallbladder. No inflammatory changes of the gallbladder evident. 3. Hypodense liver likely due to steatosis. 4. 2 cm hypodensity of the right ovary, most likely a follicle or cyst. This is new from the prior ex am from July 2020. 5. Appendix is negative. 6. Luminal collapse and wall thickening of the splenic flexure through the descending and rectosigmoi d colon. This is likely due to muscle spasm. Mild changes of colitis or secondary consideration. 7. 11 mm subsolid nodule is stable from the study from July 2020. This is indeterminate could rep resent a chronic inflammatory process versus a slowly growing low-grade adenocarcinoma. Follow-up CT imaging in 12 months may be of benefit to document longer term stability. Electronically signed by: Hesham Camarena MD (01/20/2021 5:15 AM) [facility]
[2021-01-20] MEDS ORDERED: ONDANSETRON PF 4 MG/2 ML VIAL. IVP PRN (06:45)
[2021-01-20] MEDS ORDERED: IV NORMAL SALINE 1,000ML 1,000 ML IV SCH (06:45)
[2021-01-20 06:49] LABS: BILIRUBIN,URINE NEG (NEG); CLARITY,URINE HAZY; COLOR,URINE YELLOW; GLUCOSE,URINE NEG (NEG); NITRITE,URINE NEG (NEG); UROBILINOGEN,URINE 0.2 mg/dL (0.2 mg/dL)
[2021-01-20 06:59] LABS: BACTERIA,URINE FEW /HPF (0-FEW); RBC,URINE OCC /HPF (0-2); SQUAMOUS EPITHELIAL CELL,UR MANY /LPF
[2021-01-20 08:00] VITALS: BP 165/115
--- NOTE | 2021-01-20 09:11 | HP ---
ADMIT DATE: 01/20/2021 ATTENDING PHYSICIAN: Dr. Brown. CHIEF COMPLAINT: Abdominal pain. HISTORY OF PRESENT ILLNESS: The patient is a 30-year-old female who is a chronic alcoholic. She has underlying schizoaffective disorder and major depression. She continues to drink alcohol. She has epigastric pain starting 24 hours before she was on a binge drinking a fifth of vodka daily for the past week. She has had previous episodes on admissions with similar issues. Denies recent , fevers, chills or COVID exposure. ALLERGIES: She has no known drug allergies. CURRENT MEDICATIONS: None. SOCIAL HISTORY: Nonsmoker, heavy alcohol use. She also uses methamphetamine. FAMILY HISTORY: Unobtainable. REVIEW OF SYSTEMS: Significant abdominal pain, nausea and underlying depression. She denied any suicidal ideation. No hematemesis. All other systems reviewed and turned to be negative. PHYSICAL EXAMINATION: GENERAL: When I saw her, this is an uncomfortable young female. VITAL SIGNS: Initial vital signs showed a blood pressure of 155/106, pulse is 70 and regular. She is afebrile. Oxygen saturation 98% on room air. HEENT: Head is without trauma. Pupils are reactive. Sclerae nonicteric. Oropharynx is clear. NECK: Supple, no bruits. LUNGS: Clear. CARDIOVASCULAR: Showed regular heart tones. ABDOMEN: Diffusely tender on palpation. There is guarding. There is no rebound tenderness. No masses. Bowel sounds are hypoactive. EXTREMITIES: Show trace edema. NEUROLOGIC FUNCTION: Focally intact. Flat affect. PERTINENT LABORATORY STUDIES: Hemoglobin 11.9 g/dL with a white count of 6700. Electrolytes within normal range. Creatinine 0.6 mg percent. The lipase is only 365. Cardiac enzymes were negative. Serology negative for coronavirus. Alcohol level was [address] of the abdomen showed evidence of pancreatitis with edema around the pancreas. ASSESSMENT: 1. A 30-year-old female with alcoholic pancreatitis. 2. Chronic alcoholism with binge drinking. 3. Schizoaffective disorder. 4. Labile hypertension. 5. Polysubstance abuse. PLAN: 1. Admit to the inpatient unit. 2. Pain and nausea control. 3. N.p.o. 4. IV hydration. MARCIN/ROGER DR: MARCIN/chani TID: [id number]
[2021-01-20] MEDS: IV NORMAL SALINE 1,000ML 1,000 ML IV SCH ×2 (10:02→17:56)
[2021-01-20 10:57] VITALS: BP 158/103
[2021-01-20 15:31] VITALS: BP 160/119
[2021-01-20 19:44] VITALS: BP 166/110
[2021-01-20 23:03] VITALS: BP 172/115
[2021-01-21] MEDS: IV NORMAL SALINE 1,000ML 1,000 ML IV SCH ×2 (03:36→15:45)
[2021-01-21 04:15] VITALS: BP 162/111
[2021-01-21 13:17] VITALS: BP 143/95
[2021-01-21 16:46] VITALS: BP 131/87
[2021-01-21 19:18] VITALS: BP 134/83
--- NOTE | 2021-01-21 21:05 | PN ---
DATE: 01/21/2021 ATTENDING PHYSICIAN: Dr. Brown. SUBJECTIVE: Very sleepy, but pain is better controlled. Nausea is moderate. OBJECTIVE FINDINGS: VITAL SIGNS: Blood pressure this morning is 160/100, pulse 100 and regular. She is afebrile. Oxygen saturation 97% on room air. HEENT: Head is without trauma. Pupils are reactive. Sclerae nonicteric. Oropharynx clear. NECK: Supple, no bruits identified. LUNGS: Good breath sounds. CARDIOVASCULAR: Showed regular heart tones. ABDOMEN: Soft. Minimal guarding, no rebound tenderness. Hypoactive bowel sounds. EXTREMITIES: Without edema. NEUROLOGIC: Focally intact. Speech is fluent. ASSESSMENT: 1. A 30-year-old female with alcoholic pancreatitis. 2. Chronic alcoholism with binge drinking episodes. 3. Schizoaffective disorder. 4. Labile hypertension. 5. Polysubstance abuse. 6. Noncompliance of meds. PLAN: 1. Continue IV hydration. 2. Pain and nausea control. 3. Try clear liquids. 4. Monitor blood pressure. RITA DR: Micah TID: [id number]
[2021-01-21 23:27] VITALS: BP 143/89
[2021-01-22] MEDS: IV NORMAL SALINE 1,000ML 1,000 ML IV SCH ×3 (04:29→21:45)
[2021-01-22 05:47] VITALS: BP 152/84
[2021-01-22 11:55] VITALS: BP 121/79
--- NOTE | 2021-01-22 14:46 | PN ---
DATE: 01/22/2021 ATTENDING PHYSICIAN: Dr. Brown SUBJECTIVE: The patient is still having abdominal pain with mild nausea. She does not tolerate solids. We will continue clear liquid diet. OBJECTIVE FINDINGS: VITAL SIGNS: Blood pressure this morning is 150/80, pulse is 56 and regular. She is afebrile. Oxygen saturation 95% on room air. HEENT: Head is without trauma. Pupils are reactive. Sclerae nonicteric. Oropharynx clear. NECK: No stridor. LUNGS: Clear. CARDIOVASCULAR: Regular heart tones. ABDOMEN: Soft. There is minimal guarding on deep palpation. There are no masses. Bowel sounds are hypoactive. EXTREMITIES: Showed no edema. NEUROLOGIC FINDINGS: Flat affect, otherwise intact. ASSESSMENT: 1. A 30-year-old female with chronic alcoholism. 2. Alcoholic pancreatitis. 3. Underlying depression. 4. Schizoaffective disorder. 5. Noncompliance of meds. 6. Polysubstance abuse. PLAN: 1. Continue IV hydration. 2. Pain and nausea control. 3. Clear liquid diet. 4. Monitor blood pressure. MARCIN/STACY DR: MARCIN/chani TID: [id number]
[2021-01-22 15:31] VITALS: BP 130/84
[2021-01-22 19:53] VITALS: BP 134/86
[2021-01-23 05:37] VITALS: BP 161/96
[2021-01-23] MEDS: IV NORMAL SALINE 1,000ML 1,000 ML IV SCH (07:44)
[2021-01-23] MEDS ORDERED: OXYC1TAB22 PO (11:25)
[2021-01-23 11:55] VITALS: BP 145/91
--- NOTE | 2021-01-23 12:57 | DS ---
DATE OF DISCHARGE: 01/23/2021 ATTENDING PHYSICIAN: Dr. Brown. FINAL DISCHARGE DIAGNOSES: 1. Alcoholic pancreatitis. 2. Abdominal pain. 3. Nausea and vomiting. 4. Chronic alcoholism. 5. History of schizoaffective disorder. 6. Underlying depression with anxiety. HISTORY AND PHYSICAL: The patient is a 30-year-old female with several previous admissions with alcoholic pancreatitis. She continues to binge drink. She is admitted then with alcoholic pancreatitis. PHYSICAL EXAMINATION: Please see the dictated note. PERTINENT LABORATORY AND X-RAY STUDIES: Admission hemoglobin 11.9 g/dL, white count 6700. Electrolytes within normal range. Nonfasting blood sugar 120. Creatinine is 0.6 mg percent. Cardiac enzymes negative. Alkaline phosphatase 119. Admission lipase 365. X-ray studies: CT of the abdomen and pelvis showed acute pancreatitis with edema throughout the gland and peripancreatic fluid. No pseudocyst or abscess identified. There is a hypodense liver, likely due to steatosis, prominent distention of the gallbladder without any inflammatory changes. Appendix is negative. She had an 11 mm subsolid nodule, stable from 07/2020 study, probable chronic inflammatory process. COURSE IN THE HOSPITAL: The patient was admitted. She was kept n.p.o. Pain and nausea control. She did better. Diet was advanced to clear liquids. By the fourth hospital day, her vital signs are stable. Abdominal exam was unremarkable. Affect remains flat. She wanted to go home. I felt this is reasonable. I called in Percocet 10/325 one p.o. q.6 hours p.r.n. pain, #20, to the local [facility]. She will follow up with her psychiatric meds at the [facility]. Strong encouragement to avoid further alcohol use, whether or not she will quit drinking remains to be seen. She was discharged then from our hospital in stable condition with explicit drug and followup care. MARCIN/ANDREA DR: Micah TID: [id number]
== END 2021-01-23 13:25 | disposition home or self-care (01) | DRG 440 ==
LOC: ER 03:51 → 1 SOUTH 06:32
PROVIDERS: ADMIT Hospitalist; ATTEND Hospitalist
DX: K85.20 Alcohol induced acute pancreatitis without necrosis or infection (principal); F41.9 Anxiety disorder, unspecified; F15.90 Other stimulant use, unspecified, uncomplicated; F25.9 Schizoaffective disorder, unspecified; I10 Essential (primary) hypertension; F10.20 Alcohol dependence, uncomplicated; Z91.14 Patient's other noncompliance with medication regimen; Z20.822 Contact with and (suspected) exposure to COVID-19; E66.01 Morbid (severe) obesity due to excess calories; Z68.32 Body mass index [BMI] 32.0-32.9, adult
CPT/HCPCS: 36415; 74177; 80053; 81001; 81025; 82553; 83690; 83735; 84484; 85025; 87426; 93005; 96361; 96365; 96375; G0480; J1885; J2060; J2405; J3010; J3490; Q9967; U0003; 99285-25; J7030

== ENCOUNTER 2021-01-26 14:26 | Emergency (ER) | payer MEDICARE ==
[~2021-01-26] VITALS: Ht 157.5 cm; Wt 77.6 kg
[~2021-01-26 14:26] MED LIST changes: +OXYC1TAB22 PO
[2021-01-26] MEDS ORDERED: MORPHINE SULFATE 4 MG/ML DISP.SYRIN. IV ONE (15:15)
[2021-01-26] MEDS ORDERED: IV NORMAL SALINE 1,000ML 1,000 ML IV ONE (15:15)
[2021-01-26] MEDS ORDERED: ONDANSETRON PF 4 MG/2 ML VIAL. IVP ONE (15:15)
--- NOTE | 2021-01-26 15:29 | PHYS DOC ---
Past History Past Medical History: Alcoholism, Anxiety, Depression, Hypertension, Pancreatitis, Schizophrenia (ROSANNE HOLT APRN) Past Surgical History: No Surgical History (ROSANNE HOLT APRN) Smoking: Non-smoker Alcohol Use: Heavy Drug Use: Amphetamine (ROSANNE HOLT APRN) General Adult EDM: Chief Complaint: ABDOMINAL PAIN HPI: HPI: Patient is a 30-year-old female presents with abdominal pain. Patient was seen on 01/20 for chronic pancreatitis. Patient was admitted to the hospital that time. Patient states that since she has been home she has been drinking alcohol and has an increase in abdominal pain, nausea. Patient states that she has not been able to keep anything down. Patient denies taking anything for pain or nausea at home. Patient has history of chronic pancreatitis, alcoholism, anxiety, schizophrenia. (ROSANNE HOLT APRN) Review of Systems: Review of Systems: Constitutional: Denies fever or chills Eyes: Denies change in visual acuity HENT: Denies nasal congestion or sore throat Respiratory: Denies cough or shortness of breath Cardiovascular: Denies chest pain or edema GI: Reports abdominal pain, nausea, vomiting. Denies diarrhea. : Denies dysuria Musculoskeletal: Denies back pain or joint pain Integument: Denies rash Neurologic: Denies headache, focal weakness or sensory changes Endocrine: Denies polyuria or polydipsia Lymphatic: Denies swollen glands Psychiatric: Reports depression or anxiety (ROSANNE HOLT APRN) Current Medications: Current Meds: Current Medications Medications (Trade) Dose Ordered Sig/Luis Felipe Start Time Stop Time Status Last Admin Dose Admin Morphine Sulfate (Morphine 4mg Syringe) 4 mg 1X ONCE 01/26/21 15:15 01/26/21 15:16 DC 01/26/21 15:21 4 MG Ondansetron HCl (Zofran) 4 mg 1X ONCE 01/26/21 15:15 01/26/21 15:16 DC 01/26/21 15:20 4 MG Sodium Chloride 1,000 ml @ 1,000 mls/hr 1X ONCE 01/26/21 15:15 01/26/21 16:14 01/26/21 15:20 1,000 MLS/HR (ROSANNE HOLT APRN) Allergies: Allergies: Allergies Coded Allergies Type Severity Reaction Last Updated Verified No Known Drug Allergies 09/20/19 No (HOLT,ROSANNE CHECK GRADER) Physical Exam: PE: Constitutional: Well developed, well nourished, no acute distress, non-toxic appearance. [] HENT: Normocephalic, atraumatic, bilateral external ears normal, oropharynx moist, no oral exudates, nose normal. [] Eyes: PERRLA, EOMI, conjunctiva normal, no discharge. [] Neck: Normal range of motion, no tenderness, supple, no stridor. [] Cardiovascular:Heart rate regular rhythm, no murmur [] Lungs & Thorax: Bilateral breath sounds clear to auscultation [] Abdomen: Bowel sounds normal, soft, no tenderness, no masses, no pulsatile masses. [] Skin: Warm, dry, no erythema, no rash. [] Back: No tenderness, no CVA tenderness. [] Extremities: No tenderness, no cyanosis, no clubbing, ROM intact, no edema. [] Neurologic: Alert and oriented X 3, normal motor function, normal sensory function, no focal deficits noted. [] Psychologic: Affect normal, judgement normal, mood normal. [] (ROSANNE HOLT CHECK GRADER) Current Patient Data: Vital Signs: Vital Signs Date Time Temp Pulse Resp B/P (MAP) Pulse Ox O2 Delivery O2 Flow Rate FiO2 01/26/21 15:21 16 98 Room Air 01/26/21 14:34 98.2 108 138/94 (ROSANNE HOLT APRN) EKG: EKG: Heart rate, 90 bpm. [] (ROSANNE HOLT APRN) Radiology/Procedures: Radiology/Procedures: []EXAM: Abdomen and pelvis CT without intravenous contrast. HISTORY: Pain. TECHNIQUE: Computed tomographic images of the abdomen and pelvis were obtained without contrast. Multiplanar reformatting was performed. *One or more of the following individualized dose reduction techniques were utilized for this examination: 1. Automated exposure control. 2. Adjustment of the mA and/or kV according to patient size. 3. Use of iterative reconstruction technique. COMPARISON: 01/20/2021. FINDINGS: Evaluation of the lower thorax demonstrates a stable 9 mm subsolid nodule within the inferior anterior medial left upper lobe. There is posterior dependent atelectasis. There is no infiltrate or pleural effusion. There is hepatic steatosis. There is stable suspected geographic fatty infiltration of the liver along the falciform ligament. The gallbladder is distended. There is no evidence of cholecystitis. There has been interval decrease in peripancreatic fatty stranding. No hepatic masses seen on this noncontrast exam. There is no pseudocyst. The spleen is normal in size. The adrenal glands and kidneys are unremarkable. There is no appendicitis. There is no bowel obstruction. The urinary bladder is nearly empty. There is a suspected nabothian cyst within the cervix. The uterus is retroverted. There are are multiple ovarian follicles, better characterized on the recent contrast-enhanced exam. The aorta is normal in caliber. There is no lymphadenopathy. There is no suspicious osseous lesion. IMPRESSION: 1. Interval decrease in previously demonstrated perihepatic stranding, favoring resolving acute pancreatitis. 2. Hepatic steatosis. 3. 9 mm subsolid pulmonary nodule within the left upper lobe. Follow-up in 6-12 months is recommended. 4. Note is made that a recently described right ovarian follicle or cyst is not well characterized on this noncontrast exam. Electronically signed by: Lee Ann May MD (01/26/2021 3:52 PM) [id number] (ROSANNE HOLT APRN) Heart Score: C/O Chest Pain: No Risk Factors: Risk Factors: DM, Current or recent (<one month) smoker, HTN, HLP, family history of CAD, obesity. Risk Scores: Score 0 - 3: 2.5% MACE over next 6 weeks - Discharge Home Score 4 - 6: 20.3% MACE over next 6 weeks - Admit for Clinical Observation Score 7 - 10: 72.7% MACE over next 6 weeks - Early Invasive Strategies (ROSANNE HOLT APRN) Course & Med Decision Making: Course & Med Decision Making Pertinent Labs and Imaging studies reviewed. (See chart for details) [] 30-year-old female presents with chronic abdominal pain. Patient was recently discharged from the hospital for pancreatitis. Patient states that when she got home she started drinking alcohol and started having pain and vomiting yesterday. Patient states she is unable to keep anything down and feels like she is dehydrated. CT of abdomen and pelvis shows fever to a resolving pancreatitis. Potassium 3.0, 40 mEq of potassium given. All other labs unremarkable. Discussed results with patient. Patient states that she feels much better and that she has pain and nausea medication at home. Patient given return precautions. Patient is hemodynamically stable upon disposition. (ROSANNE HOLT APRN) Surjit Disclaimer: Surjit Disclaimer: This electronic medical record was generated, in whole or in part, using a voice recognition dictation system. (ROSANNE HOLT APRN) Departure Departure: Impression: Primary Impression: Alcohol-induced pancreatitis Qualified Codes: K85.20 - Alcohol induced acute pancreatitis without necrosis or infection Disposition: HOME / SELF CARE / HOMELESS Condition: STABLE Referrals: PCP,NO (PCP) Patient Instructions: Acute Pancreatitis, [id number] Additional Instructions: You were seen in the emergency room for pain due to acute pancreatitis. You were given pain medication along with nausea medication and fluids. You stated your pain was much better. All of your labs were unremarkable. CT was negative. Take your nausea and pain medication at home as directed. Please return to emergency room if you have worsening symptoms or concerns. EMERGENCY DEPARTMENT GENERAL DISCHARGE INSTRUCTIONS Thank you for coming to [facility] (ED) today and trusting us with you care. We trust that you had a positivie experience in our Emergency Department. If you wish to speak to the department management, you may call the director at [phone]. YOUR FOLLOW UP INSTRUCTIONS ARE FOLLOWS: 1. Do you have a private Doctor? If you do not have a private doctor, please ask for a resource list of physicians or clinics that may be able to assist you with follow up care. 2. The Emergency Physician has interpreted your x-rays. The X-Ray specialist will also review them. If there is a change in the findings, you will be notified in 48 hours when at all possible. 3. A lab test or culture has been done, your results will be reviewed and you will be notified if you need a change in treatment. ADDITIONAL INSTRUCTIONS AND INFORMATION: 1. Your care today has been supervised by a physician who is specially trained in emergency care. Many problems require more than one evaluation for a complete diagnosis and treatment. We recommend that you schedule your follow up appointment as recommended to ensure complete treatment of you illness or injury. If you are unable to obtain follow up care and continue to have a problem, or if your condition worsens, we recommend that you return to the ED. 2. We are not able to safely determine your condition over the phone nor are we able to give sound medical advice over the phone. For these safety reasons, if you call for medical advice we will ask you to come to the ED for further evaluation. 3. If you have any questions regarding these discharge instructions please call the ED at [phone]. SAFETY INFORMATION: In the interest of safety, wellness, and injury prevention; we encourage you to wear your sealbelt, if you smoke; quite smoking, and we encourage family to use a protective helmet for bicycling and other sporting events that present an increased risk for head injury. IF YOUR SYMPTOMS WORSEN OR NEW SYMPTOMS DEVELOP, OR YOU HAVE CONCERNS ABOUT YOUR CONDITION; OR IF YOUR CONDITION WORSENS WHILE YOU ARE WAITING FOR YOUR FOLLOW UP APPOINTMENT; EITHER CONTACT YOUR PRIMARY CARE DOCTOR, THE PHYSICIAN WHOSE NAME AND NUMBER YOU WERE GIVEN, OR RETURN TO THE ED IMMEDIATELY. Attending Signature Attending Signature I have reviewed the PA/BUTCHER HELPER's note and plan of care. I was available for consultation as needed during the patient's visit in the emergency department. I agree with the clinical impression, plan, and disposition. (MAX GARVIN DO) ROSANNE HOLT APRN Jan 26, 2021 15:29 MAX GARVIN DO Jan 26, 2021 19:44
--- NOTE | 2021-01-26 15:54 | RAD ---
EXAM: Abdomen and pelvis CT without intravenous contrast. HISTORY: Pain. TECHNIQUE: Computed tomographic images of the abdomen and pelvis were obtained without contrast. Mult iplanar reformatting was performed. *One or more of the following individualized dose reduction techniques were utilized for this examina tion: 1. Automated exposure control. 2. Adjustment of the mA and/or kV according to patient size. 3. Use of iterative reconstruction technique. COMPARISON: 01/20/2021. FINDINGS: Evaluation of the lower thorax demonstrates a stable 9 mm subsolid nodule within the inferi or anterior medial left upper lobe. There is posterior dependent atelectasis. There is no infiltrate or pleural effusion. There is hepatic steatosis. There is stable suspected geographic fatty infiltrat ion of the liver along the falciform ligament. The gallbladder is distended. There is no evidence of cholecystitis. There has been interval decrease in peripancreatic fatty stranding. No hepatic masses seen on this no ncontrast exam. There is no pseudocyst. The spleen is normal in size. The adrenal glands and kidneys are unremarkable. There is no appendicitis. There is no bowel obstruction. The urinary bladder is nearly empty. There i s a suspected nabothian cyst within the cervix. The uterus is retroverted. There are are multiple ova evelyn follicles, better characterized on the recent contrast-enhanced exam. The aorta is normal in sheldon iber. There is no lymphadenopathy. There is no suspicious osseous lesion. IMPRESSION: 1. Interval decrease in previously demonstrated perihepatic stranding, favoring resolving acute pancr eatitis. 2. Hepatic steatosis. 3. 9 mm subsolid pulmonary nodule within the left upper lobe. Follow-up in 6-12 months is recommended . 4. Note is made that a recently described right ovarian follicle or cyst is not well characterized on this noncontrast exam. Electronically signed by: Lee Ann May MD (01/26/2021 3:52 PM) [id number]
[2021-01-26 15:58] LABS: BASO % 1 % (0-3); EOS % 0 % (0-3); HEMATOCRIT 40.2 % (36.0-47.0); HEMOGLOBIN 13.1 g/dL (12.0-15.5); LYMPH # 2.5 x10^3/uL (1.0-4.8); LYMPH % 36 % (24-48); MEAN CORPUSCULAR HEMOGLOBIN 26 pg (25-35); MEAN CORPUSCULAR HGB CONC 33 g/dL (31-37); MEAN CORPUSCULAR VOLUME 80 fL (79-100); MONO # 0.9 x10^3/uL (0.0-1.1); MONO % 14 % (0-9); NEUT # 3.4 x10^3uL (1.8-7.7); NEUT % 49 % (31-73); PLATELET COUNT 369 x10^3/uL (140-400); RED BLOOD COUNT 5.01 x10^6/uL (3.50-5.40); RED CELL DISTRIBUTION WIDTH 22.5 % (11.5-14.5); WHITE BLOOD COUNT 6.9 x10^3/uL (4.0-11.0)
[2021-01-26 16:46] LABS: CALCIUM 8.4 mg/dL (8.5-10.1); CREATININE 1.2 mg/dL (0.6-1.0); GFR 63.4; POTASSIUM 3.1 mmol/L (3.5-5.1)
[2021-01-26 16:54] LABS: ALBUMIN 3.7 g/dL (3.4-5.0); ALBUMIN/GLOBULIN RATIO 0.8 (1.0-1.7); TOTAL BILIRUBIN 0.6 mg/dL (0.2-1.0); TOTAL PROTEIN 8.4 g/dL (6.4-8.2)
--- NOTE | 2021-01-26 16:54 | EKG ---
[address] [address] Test Date: 2021-01-26 Test Time: 15:52:00 Pat Name: OSCAR SALCEDO Department: Room: Gender: F Machine Operators: BIMAL : 1990 Requested By: ROSANNE HOLT Order Number: [id number] Reading MD: Measurements Intervals [place] Rate: 90 P: 36 MD: 154 QRS: -5 QRSD: 88 T: 6 QT: 394 QTc: 486 Interpretive Statements SINUS RHYTHM LEFTWARD AXIS PROLONGED QT NO SPECIFIC ECG ABNORMALITIES RI6.02 No previous ECG available for comparison
[2021-01-26] MEDS ORDERED: POTASSIUM CHLORIDE 20 MEQ TABLET.ER. PO ONE (17:15)
[2021-01-26 17:59] VITALS: BP 128/70
[2021-01-26 18:27] LABS: ANISOCYTOSIS SLIGHT
[2021-01-26 18:28] LABS: PLT ESTIMATE ADEQUATE (ADEQUATE)
[2021-01-26] MEDS ORDERED: ONDA4TAB7 PO (21:13)
[2021-01-26] MEDS ORDERED: HYDR-2155 PO (21:13)
== END 2021-01-26 18:00 | disposition home or self-care (01) ==
LOC: ER 14:26
DX: K85.20 Alcohol induced acute pancreatitis without necrosis or infection (principal); F10.20 Alcohol dependence, uncomplicated; I10 Essential (primary) hypertension; F20.9 Schizophrenia, unspecified; Y90.9 Presence of alcohol in blood, level not specified
CPT/HCPCS: 36415; 74176; 80053; 83690; 85025; 93005; 96361; 96374; 96375; 99285; J2270; J2405; J7030

== ENCOUNTER 2021-01-26 20:42 | Emergency (ER) | payer MEDICARE ==
[~2021-01-26] VITALS: Ht 157.5 cm; Wt 77.6 kg
[2021-01-26 20:42] VITALS: BP 118/77
[2021-01-26] MEDS ORDERED: HYDR-2155 PO (21:13)
[2021-01-26] MEDS ORDERED: ONDA4TAB7 PO (21:13)
--- NOTE | 2021-01-26 21:14 | PHYS DOC ---
Past History Past Medical History: Alcoholism, Anxiety, Depression, Hypertension, Pancreatitis, Schizophrenia (ROSANNE HOLT APRN) Past Surgical History: No Surgical History (ROSANNE HOLT APRN) Smoking: Non-smoker Alcohol Use: Heavy Drug Use: Amphetamine (ROSANNE HOLT APRN) General Adult EDM: Chief Complaint: ABDOMINAL PAIN HPI: HPI: Patient is a 30-year-old female who presents with abdominal pain from chronic pancreatitis. Patient was just seen earlier in the evening for the same complaint. Denies nausea/vomiting/diarrhea. Afebrile. History of pancreatitis, schizophrenia, alcoholism. (ROSANNE HOLT APRN) Review of Systems: Review of Systems: Constitutional: Denies fever or chills Eyes: Denies change in visual acuity HENT: Denies nasal congestion or sore throat Respiratory: Denies cough or shortness of breath Cardiovascular: Denies chest pain or edema GI: Reports abdominal pain. Denies nausea/vomiting. : Denies dysuria Musculoskeletal: Denies back pain or joint pain Integument: Denies rash Neurologic: Denies headache, focal weakness or sensory changes Endocrine: Denies polyuria or polydipsia Lymphatic: Denies swollen glands Psychiatric: Denies depression or anxiety (ROSANNE HOLT APRN) Allergies: Allergies: Allergies Coded Allergies Type Severity Reaction Last Updated Verified No Known Drug Allergies 09/20/19 No (ROSANNE HOLT APRN) Physical Exam: PE: Constitutional: Well developed, well nourished, no acute distress, non-toxic appearance. [] HENT: Normocephalic, atraumatic, bilateral external ears normal, oropharynx moist, no oral exudates, nose normal. [] Eyes: PERRLA, EOMI, conjunctiva normal, no discharge. [] Neck: Normal range of motion, no tenderness, supple, no stridor. [] Cardiovascular:Heart rate regular rhythm, no murmur [] Lungs & Thorax: Bilateral breath sounds clear to auscultation [] Abdomen: Bowel sounds normal, soft, no tenderness, no masses Skin: Warm, dry, no erythema, no rash. [] Back: No tenderness, no CVA tenderness. [] Extremities: No tenderness, no cyanosis, no clubbing, ROM intact, no edema. [] Neurologic: Alert and oriented X 3, normal motor function, normal sensory function, no focal deficits noted. [] Psychologic: Affect normal, judgement normal, mood normal. [] (ROSANNE HOLT APRN) EKG: EKG: [] (ROSANNE HOLT APRN) Radiology/Procedures: Radiology/Procedures: [] (ROSANNE HOLT APRN) Heart Score: C/O Chest Pain: No Risk Factors: Risk Factors: DM, Current or recent (<one month) smoker, HTN, HLP, family history of CAD, obesity. Risk Scores: Score 0 - 3: 2.5% MACE over next 6 weeks - Discharge Home Score 4 - 6: 20.3% MACE over next 6 weeks - Admit for Clinical Observation Score 7 - 10: 72.7% MACE over next 6 weeks - Early Invasive Strategies (ROSANNE HOLT APRN) Course & Med Decision Making: Course & Med Decision Making Pertinent Labs and Imaging studies reviewed. (See chart for details) [] 30-year-old female presents with abdominal pain. Patient was just discharged last week with chronic pancreatitis. Patient has a history of alcoholism. Patient was seen earlier in the evening and had a complete work-up that was unremarkable. CT of abdomen showed improving pancreatitis. Patient is hemodynamically stable. Patient is requesting to be admitted to the hospital. Explained to patient that she did not have any reason to be admitted to the hospital. I am sending patient home with hydrocodone to help with discomfort. Patient instructed to take medication for pain. (ROSANNE HOLT APRN) Dragon Disclaimer: Dragon Disclaimer: This electronic medical record was generated, in whole or in part, using a voice recognition dictation system. (ROSANNE HOLT APRN) Departure Departure: Impression: Primary Impression: Chronic pancreatitis Qualified Codes: K86.0 - Alcohol-induced chronic pancreatitis Disposition: HOME / SELF CARE / HOMELESS Condition: STABLE Referrals: PCP,NO (PCP) Patient Instructions: Acute Pancreatitis, [id number] Additional Instructions: You are seen in the emergency room for abdominal pain from chronic pancreatitis. I am sending you home with some pain medication and also nausea medication. You also need to quit drinking alcohol which is causing you to continue to have pancreatitis.Return to the emergency room if you have worsening symptoms or concerns. Otherwise you need to follow-up with PCP. I am attaching a list of PCPs to establish a relationship with. EMERGENCY DEPARTMENT GENERAL DISCHARGE INSTRUCTIONS Thank you for coming to [facility] (ED) today and trusting us with you care. We trust that you had a positivie experience in our Emergency Department. If you wish to speak to the department management, you may call the director at [phone]. YOUR FOLLOW UP INSTRUCTIONS ARE FOLLOWS: 1. Do you have a private Doctor? If you do not have a private doctor, please ask for a resource list of physicians or clinics that may be able to assist you with follow up care. 2. The Emergency Physician has interpreted your x-rays. The X-Ray specialist will also review them. If there is a change in the findings, you will be notified in 48 hours when at all possible. 3. A lab test or culture has been done, your results will be reviewed and you will be notified if you need a change in treatment. ADDITIONAL INSTRUCTIONS AND INFORMATION: 1. Your care today has been supervised by a physician who is specially trained in emergency care. Many problems require more than one evaluation for a complete diagnosis and treatment. We recommend that you schedule your follow up appointment as recommended to ensure complete treatment of you illness or injury. If you are unable to obtain follow up care and continue to have a problem, or if your condition worsens, we recommend that you return to the ED. 2. We are not able to safely determine your condition over the phone nor are we able to give sound medical advice over the phone. For these safety reasons, if you call for medical advice we will ask you to come to the ED for further evaluation. 3. If you have any questions regarding these discharge instructions please call the ED at [phone]. SAFETY INFORMATION: In the interest of safety, wellness, and injury prevention; we encourage you to wear your sealbelt, if you smoke; quite smoking, and we encourage family to use a protective helmet for bicycling and other sporting events that present an increased risk for head injury. IF YOUR SYMPTOMS WORSEN OR NEW SYMPTOMS DEVELOP, OR YOU HAVE CONCERNS ABOUT YOUR CONDITION; OR IF YOUR CONDITION WORSENS WHILE YOU ARE WAITING FOR YOUR FOLLOW UP APPOINTMENT; EITHER CONTACT YOUR PRIMARY CARE DOCTOR, THE PHYSICIAN WHOSE NAME AND NUMBER YOU WERE GIVEN, OR RETURN TO THE ED IMMEDIATELY. Scripts Ondansetron Hcl (ZOFRAN) 4 Mg Tablet 4 MG PO TID PRN PRN for NAUSEA, #9 TAB Prov: ROSANNE HOLT APRN 01/26/21 Hydrocodone Bit/Acetaminophen (HYDROCODONE-APAP 5-325 ) 1 Each Tablet 1 TAB PO PRN Q6HRS PRN for PAIN for 3 Days, #12 TAB 0 Refills Prov: ROSANNE HOLT APRN 01/26/21 Attending Signature Attending Signature I have reviewed the PA/CORRECTIONAL SUPERVISOR's note and plan of care. I was available for consultation as needed during the patient's visit in the emergency department. I agree with the clinical impression, plan, and disposition. (MAX GARVIN DO) ROSANNE HOLT APRN Jan 26, 2021 21:14 MAX GARVIN DO Jan 26, 2021 23:46
== END 2021-01-26 22:08 | disposition home or self-care (01) ==
LOC: ER 20:42
DX: K86.0 Alcohol-induced chronic pancreatitis (principal); F41.9 Anxiety disorder, unspecified; F32.9 Major depressive disorder, single episode, unspecified; I10 Essential (primary) hypertension; F20.9 Schizophrenia, unspecified; F10.20 Alcohol dependence, uncomplicated; Y90.9 Presence of alcohol in blood, level not specified
CPT/HCPCS: 99283

== ENCOUNTER 2021-03-05 14:51 | Emergency (ER) | payer MEDICARE ==
[~2021-03-05] VITALS: Ht 157.5 cm; Wt 80.6 kg
[~2021-03-05 14:51] MED LIST changes: +HYDR-2155 PO; +ONDA4TAB7 PO
--- NOTE | 2021-03-05 15:22 | PHYS DOC ---
Past History Past Medical History: Alcoholism, Anxiety, Depression, Hypertension, Pancreatitis, Schizophrenia Past Surgical History: No Surgical History Smoking: Non-smoker Alcohol Use: Heavy Drug Use: Amphetamine General Adult EDM: Chief Complaint: ABDOMINAL PAIN HPI: HPI: 30-year-old female presents with epigastric abdominal pain. The patient has a history of pancreatitis. She has been drinking alcohol heavily lately. This is usually flares up for pancreatitis. She has had cramping pain for the last 1 day. She has had some nausea and vomiting but no diarrhea. She denies fever or chills. She has no other complaints this time. Review of Systems: Review of Systems: Constitutional: Denies fever or chills Eyes: Denies change in visual acuity HENT: Denies nasal congestion or sore throat Respiratory: Denies cough or shortness of breath Cardiovascular: Denies chest pain or edema GI: epigastric abdominal pain, nausea, vomiting. : Denies dysuria Musculoskeletal: Denies back pain or joint pain Integument: Denies rash Neurologic: Denies headache, focal weakness or sensory changes Endocrine: Denies polyuria or polydipsia Lymphatic: Denies swollen glands Psychiatric: Denies depression or anxiety Current Medications: Current Meds: Current Medications Medications (Trade) Dose Ordered Sig/Luis Felipe Start Time Stop Time Status Last Admin Dose Admin Ketorolac Tromethamine (Toradol 30mg Vial) 30 mg 1X ONCE 03/05/21 15:30 03/05/21 15:31 UNV Allergies: Allergies: Allergies Coded Allergies Type Severity Reaction Last Updated Verified No Known Drug Allergies 09/20/19 No Physical Exam: PE: Constitutional: Well developed, well nourished, no acute distress, non-toxic appearance. [] HENT: Normocephalic, atraumatic, bilateral external ears normal, oropharynx moist, no oral exudates, nose normal. [] Eyes: PERRLA, EOMI, conjunctiva normal, no discharge. [] Neck: Normal range of motion, no tenderness, supple, no stridor. [] Cardiovascular: Heart rate regular rhythm, no murmur [] Lungs & Thorax: Bilateral breath sounds clear to auscultation [] Abdomen: Bowel sounds normal, soft, epigastric tenderness, no masses, no pulsatile masses. [] Skin: Warm, dry, no erythema, no rash. [] Back: No tenderness, no CVA tenderness. [] Extremities: No tenderness, no cyanosis, no clubbing, ROM intact, no edema. [] Neurologic: Alert and oriented X 3, normal motor function, normal sensory function, no focal deficits noted. [] Psychologic: Affect normal, judgement normal, mood normal. [] Current Patient Data: Vital Signs: Vital Signs Date Time Temp Pulse Resp B/P (MAP) Pulse Ox O2 Delivery O2 Flow Rate FiO2 03/05/21 15:00 98.1 63 20 160/98 (118) 96 Room Air EKG: EKG: [] Radiology/Procedures: Radiology/Procedures: [] Heart Score: C/O Chest Pain: N/A Risk Factors: Risk Factors: DM, Current or recent (<one month) smoker, HTN, HLP, family history of CAD, obesity. Risk Scores: Score 0 - 3: 2.5% MACE over next 6 weeks - Discharge Home Score 4 - 6: 20.3% MACE over next 6 weeks - Admit for Clinical Observation Score 7 - 10: 72.7% MACE over next 6 weeks - Early Invasive Strategies Course & Med Decision Making: Course & Med Decision Making Pertinent Labs and Imaging studies reviewed. (See chart for details) The patient's labs are unremarkable except for some elevated liver enzymes. Her lipase is completely normal. This may be gastritis from all of her alcohol. I have treated her with Pepcid and Protonix. She is stable for discharge at this time. [] Surjit Disclaimer: Surjit Disclaimer: This electronic medical record was generated, in whole or in part, using a voice recognition dictation system. Departure Departure: Impression: Primary Impression: Abdominal pain Qualified Codes: R10.13 - Epigastric pain Disposition: HOME / SELF CARE / HOMELESS Condition: STABLE Referrals: PCP,NO (PCP) Patient Instructions: Abdominal Pain, [id number] ZENIA HANCOCK DO Mar 05, 2021 15:22
[2021-03-05] MEDS ORDERED: KETOROLAC 30 MG/ML VIAL. IVP ONE (15:30)
[2021-03-05] MEDS ORDERED: ONDANSETRON PF 4 MG/2 ML VIAL. IVP ONE (15:30)
[2021-03-05 15:48] LABS: BASO % 0 % (0-3); EOS % 0 % (0-3); HEMATOCRIT 35.1 % (36.0-47.0); HEMOGLOBIN 11.3 g/dL (12.0-15.5); LYMPH # 2.4 x10^3/uL (1.0-4.8); LYMPH % 40 % (24-48); MEAN CORPUSCULAR HEMOGLOBIN 26 pg (25-35); MEAN CORPUSCULAR HGB CONC 32 g/dL (31-37); MEAN CORPUSCULAR VOLUME 80 fL (79-100); MONO # 0.6 x10^3/uL (0.0-1.1); MONO % 10 % (0-9); NEUT # 2.9 x10^3uL (1.8-7.7); NEUT % 49 % (31-73); PLATELET COUNT 307 x10^3/uL (140-400); RED BLOOD COUNT 4.37 x10^6/uL (3.50-5.40); RED CELL DISTRIBUTION WIDTH 24.5 % (11.5-14.5); WHITE BLOOD COUNT 5.9 x10^3/uL (4.0-11.0)
[2021-03-05 15:53] LABS: CALCIUM 8.3 mg/dL (8.5-10.1); CREATININE 0.8 mg/dL (0.6-1.0); GFR 101.2; POTASSIUM 3.5 mmol/L (3.5-5.1)
[2021-03-05 15:58] LABS: ALBUMIN 3.5 g/dL (3.4-5.0); ALBUMIN/GLOBULIN RATIO 0.8 (1.0-1.7); TOTAL BILIRUBIN 0.5 mg/dL (0.2-1.0); TOTAL PROTEIN 8.1 g/dL (6.4-8.2)
[2021-03-05 16:44] LABS: BILIRUBIN,URINE NEG (NEG); CLARITY,URINE HAZY; COLOR,URINE YELLOW; GLUCOSE,URINE NEG (NEG); NITRITE,URINE NEG (NEG); UROBILINOGEN,URINE 0.2 mg/dL (0.2 mg/dL)
[2021-03-05 16:45] LABS: BACTERIA,URINE MANY /HPF (0-FEW); SQUAMOUS EPITHELIAL CELL,UR MANY /LPF
[2021-03-05] MEDS ORDERED: PANTOPRAZOLE IV 40 MG VIAL. IVP ONE (18:00)
[2021-03-05] MEDS ORDERED: FAMOTIDINE 20 MG/2 ML VIAL IVP ONE (18:00)
[2021-03-05 18:01] VITALS: BP 163/99
[2021-03-05 18:06] LABS: ANISOCYTOSIS SLIGHT; HYPOCHROMIA SLIGHT; PLT ESTIMATE ADEQUATE (ADEQUATE); POLYCHROMASIA SLIGHT
== END 2021-03-05 18:15 | disposition home or self-care (01) ==
LOC: ER 14:51
DX: R10.13 Epigastric pain (principal); R11.2 Nausea with vomiting, unspecified; F41.9 Anxiety disorder, unspecified; F32.9 Major depressive disorder, single episode, unspecified; I10 Essential (primary) hypertension; F20.9 Schizophrenia, unspecified; F10.20 Alcohol dependence, uncomplicated; Y90.9 Presence of alcohol in blood, level not specified
CPT/HCPCS: 36415; 80053; 81001; 81025; 83690; 85025; 87086; 96374; 96375; 99285; C9113; J1885; J2405; J3490

== ENCOUNTER 2021-03-06 00:28 | Emergency (ER) | payer MEDICARE ==
[~2021-03-06] VITALS: Ht 157.5 cm; Wt 80.6 kg
[2021-03-06 00:30] VITALS: BP 165/96
--- NOTE | 2021-03-06 00:42 | PHYS DOC ---
Past History Past Medical History: Alcoholism, Anxiety, Depression, Hypertension, Pancreatitis, Schizophrenia Past Surgical History: No Surgical History Smoking: Non-smoker Alcohol Use: Heavy Drug Use: Amphetamine Adult General HPI HPI Patient is a 30-year-old female presenting for epigastric pain. She was evaluated at our facility 12 hours ago and subsequently discharged. She has history of alcoholism and chronic pancreatitis. She reports today that she is convinced she has pancreatitis. States after discharge home she felt better with Pepcid given, ice denies any alcohol use but reports several hours after ER departure her epigastric pain came back. No other symptoms reported. She is not taking anything in attempt to alleviate her symptoms. Reports she cannot remember what she ate or drank since recent ER visit less than 12 hours ago. Review of Systems Review of Systems Fourteen body systems of review of systems have been reviewed. See HPI for pertinent positives and negative responses, other arredondo all other systems are negative, non-pertinent or non-contributory Allergies Allergies Allergies Coded Allergies Type Severity Reaction Last Updated Verified No Known Drug Allergies 09/20/19 No Physical Exam Physical Exam Constitutional: Well developed, well nourished, no acute distress, non-toxic appearance. HENT: Normocephalic, atraumatic, bilateral external ears normal, oropharynx moist, no oral exudates, nose normal. Eyes: PERRLA, EOMI, conjunctiva normal, no discharge. Neck: Normal range of motion, no tenderness, supple, no stridor. Cardiovascular: Heart rate regular, sinus rhythm, no murmurs rubs or gallops Lungs & Thorax: Bilateral breath sounds clear to auscultation Abdomen: Bowel sounds normal, soft, epigastric tenderness without guarding or rebound, no masses, no pulsatile masses. Nonsurgical abdomen, no peritoneal signs Skin: Warm, dry, no erythema, no rash. Back: No tenderness, no CVA tenderness. Extremities: No tenderness, no cyanosis, no clubbing, ROM intact, no edema. Neurologic: Alert and oriented X 3, grossly normal motor & sensory function, no focal deficits noted. Psychologic: Affect normal, judgement normal, mood normal. EKG EKG [] Radiology/Procedures Radiology/Procedures [] Heart Score C/O Chest Pain: No Risk Factors: Risk Factors: DM, Current or recent (<one month) smoker, HTN, HLP, family history of CAD, obesity. Risk Scores: Risk Factors: DM, Current or recent (<one month) smoker, HTN, HLP, family history of CAD, obesity. Course & Med Decision Making Course & Med Decision Making ABCs unremarkable Recent comprehensive ER work-up reviewed from less than 12 hours ago, physical exam nonconcerning for any emergent or surgical issues Given history I did offer and recommend further diagnostic imaging such as CT abdomen pelvis to further evaluate patient's epigastric pain. Patient concerned about radiation and deferred. I subsequently discussed an ultrasound but noted this would take some time as digital imaging technician is not in-house given that it is overnight, she did not want to wait As such, patient requesting discharge home if we "are not going to do anything about my pain " Continued supportive care practices advised. I discussed her ongoing alcoholism is not helping her cause. I also educated her extensively on avoiding triggering foods such as caffeine, spicy and/or excessively fatty meals that might irritate her gastrointestinal system I discussed she needs close PCP follow-up and would benefit from GI consultation and she might benefit from an outpatient endoscopy Strict return precautions discussed with good understanding by patient, all questions and concerns addressed prior to ER departure Dragon Disclaimer Dragon Disclaimer This electronic medical record was generated, in whole or in part, using a voice recognition dictation system. Departure Departure: Impression: Primary Impression: Abdominal pain Disposition: HOME / SELF CARE / HOMELESS Condition: STABLE Referrals: PCP,NO (PCP) Additional Instructions: You have been evaluated in the Emergency Department today for abdominal pain. Your evaluation was not suggestive of any emergent condition requiring medical intervention at this time. However, some abdominal problems make take more time to appear. Therefore, it is important for you to watch for any new symptoms or worsening of your current condition. I did discuss potential need for CT abdomen pelvis but this was deferred. As such, it is imperative that you follow-up with your primary care physician and outpatient gastrointestinal specialist for further work-up and treatment as indicated Return to the Emergency Department if you experience worsening pain, persistent fevers greater than 100.4, recurrent vomiting, blood in vomit, blood in stool, dark tarry stool, chest pain, difficulty breathing, or any other concerning symptoms. GREG TRACY DO Mar 06, 2021 00:42
[2021-03-06] MEDS ORDERED: LIDO:MAALOX 1:1 20 ML SINGLE DOSE. PO ONE (01:30)
[2021-03-06] MEDS ORDERED: ONDANSETRON ODT 4 MG TAB.RAPDIS PO ONE (01:45)
== END 2021-03-06 01:50 | disposition home or self-care (01) ==
LOC: ER 00:28
DX: R10.13 Epigastric pain (principal); I10 Essential (primary) hypertension; F20.9 Schizophrenia, unspecified; F10.20 Alcohol dependence, uncomplicated; Y90.9 Presence of alcohol in blood, level not specified
CPT/HCPCS: 99283; Q0162

== ENCOUNTER 2021-03-16 09:07 | Emergency (ER) | payer MEDICARE ==
[~2021-03-16] VITALS: Ht 157.5 cm; Wt 82.7 kg
--- NOTE | 2021-03-16 09:53 | PHYS DOC ---
Past History Past Medical History: Alcoholism, Anxiety, Depression, Hypertension, Pancreatitis, Schizophrenia Past Surgical History: No Surgical History Smoking: Non-smoker Alcohol Use: Heavy Drug Use: Amphetamine Adult General Chief Complaint Chief Complaint: MULTIPLE COMPLAINTS HPI HPI Patient is a 30-year-old female complaining of epigastric pain. This is an acute on chronic problem. She has history of chronic pancreatitis due to alcohol dependence. This is her sixth visit in last 3 months for similar complaints. States she typically drinks 1/5 of vodka daily, reports that her last drink was early yesterday afternoon and at that time she only drank a quarter of a bottle. States today she has had gnawing pain in her epigastric region. Nothing known makes better hours. She also feels anxious and feels l alonso she might pass out. Denies any recent illicit drug use, does admit last time she used meth was 1 week ago Review of Systems Review of Systems Fourteen body systems of review of systems have been reviewed. See HPI for p ertinent positives and negative responses, other arredondo all other systems are negative, non-pertinent or non-contributory Allergies Allergies Allergies Coded Allergies Type Severity Reaction Last Updated Verified No Known Drug Allergies 03/16/21 No Physical Exam Physical Exam Constitutional: Well developed, well nourished, no acute distress, non-toxic appearance. HENT: Normocephalic, atraumatic, bilateral external ears normal, oropharynx moist, no oral exudates, nose normal. Eyes: PERRLA, EOMI, conjunctiva normal, no discharge. Neck: Normal range of motion, no tenderness, supple, no stridor. Cardiovascular: Heart rate regular, sinus rhythm, no murmurs rubs or gallops Lungs & Thorax: Bilateral breath sounds clear to auscultation Abdomen: Bowel sounds normal, soft, epigastric tenderness to palpation without guarding or rebound, no masses, no pulsatile masses. Nonsurgical abdomen, no peritoneal signs Skin: Warm, dry, no erythema, no rash. Back: No tenderness, no CVA tenderness. Extremities: No tenderness, no cyanosis, no clubbing, ROM intact, no edema. Neurologic: Alert and oriented X 3, cranial nerves II through XII intact, normal motor & sensory function, no focal deficits noted. Psychologic: Anxious affect and mood Current Patient Data Vital Signs Vital Signs Date Time Temp Pulse Resp B/P (MAP) Pulse Ox O2 Delivery O2 Flow Rate FiO2 03/16/21 09:21 98.2 86 24 156/106 (123) 100 Room Air Lab Results Laboratory Tests Test 03/16/21 10:02 03/16/21 10:15 03/16/21 10:31 White Blood Count 3.9 x10^3/uL Red Blood Count 4.28 x10^6/uL Hemoglobin 11.3 g/dL Hematocrit 35.2 % Mean Corpuscular Volume 82 fL Mean Corpuscular Hemoglobin 26 pg Mean Corpuscular Hemoglobin Concent 32 g/dL Red Cell Distribution Width 24.9 % Platelet Count 268 x10^3/uL Neutrophils (%) (Auto) 44 % Lymphocytes (%) (Auto) 45 % Monocytes (%) (Auto) 9 % Eosinophils (%) (Auto) 1 % Basophils (%) (Auto) 1 % Neutrophils # (Auto) 1.7 x10^3uL Lymphocytes # (Auto) 1.8 x10^3/uL Monocytes # (Auto) 0.4 x10^3/uL Eosinophils # (Auto) 0.1 x10^3/uL Basophils # (Auto) 0.0 x10^3/uL Sodium Level 138 mmol/L Potassium Level 3.3 mmol/L Chloride Level 102 mmol/L Carbon Dioxide Level 21 mmol/L Anion Gap 15 Blood Urea Nitrogen 6 mg/dL Creatinine 0.7 mg/dL Estimated GFR (Cockcroft-Gault) 118.1 BUN/Creatinine Ratio 9 Glucose Level 107 mg/dL Calcium Level 7.9 mg/dL Total Bilirubin 0.4 mg/dL Aspartate Amino Transf (AST/SGOT) 71 U/L Alanine Aminotransferase (ALT/SGPT) 60 U/L Alkaline Phosphatase 112 U/L Troponin I Quantitative < 0.017 ng/mL Total Protein 7.7 g/dL Albumin 3.3 g/dL Albumin/Globulin Ratio 0.8 Lipase 25 U/L Urine Opiates Screen Neg Urine Methadone Screen Neg Urine Barbiturates Neg Urine Phencyclidine Screen Neg Urine Amphetamine/Methamphetamine Pos Urine Benzodiazepines Screen Neg Urine Cocaine Screen Neg Urine Cannabinoids Screen Neg Urine Ethyl Alcohol Neg Bedside Urine HCG, Qualitative hcg negative Current Medications Medications (Trade) Dose Ordered Sig/Luis Felipe Route PRN Reason Start Time Stop Time Status Last Admin Dose Admin Lorazepam (Ativan Inj) 1 mg 1X ONCE IVP 03/16/21 10:15 03/16/21 10:18 DC 03/16/21 10:26 EKG EKG [] Radiology/Procedures Radiology/Procedures [] Heart Score C/O Chest Pain: No Risk Factors: Risk Factors: DM, Current or recent (<one month) smoker, HTN, HLP, family history of CAD, obesity. Risk Scores: Risk Factors: DM, Current or recent (<one month) smoker, HTN, HLP, family history of CAD, obesity. Course & Med Decision Making Course & Med Decision Making ABCs unremarkable HPI physical exam and comprehensive ER work-up nonconcerning for any emergent or surgical issues Patient's presenting symptoms likely product of ongoing alcohol and illicit drug dependence. She does not have an acute abdomen. I disclose no indication for further diagnostic work-up and/or need for hospitalization at this time Patient is yet to follow-up in outpatient setting with primary care physician and/or GI physician. She has not attempted to make contact with either despite recent ER visits. I strongly advised her to do so Strict return precautions were discussed with good understanding by patient, all questions and concerns addressed prior to departure Dragon Disclaimer Dragon Disclaimer This electronic medical record was generated, in whole or in part, using a voice recognition dictation system. Departure Departure: Impression: Primary Impression: Abdominal pain Additional Impressions: Amphetamine abuse Alcoholism Disposition: HOME / SELF CARE / HOMELESS Condition: STABLE Referrals: PCPISAI (PCP) Patient Instructions: Abdominal Pain (Nonspecific), Alcohol and Drug Addiction, Finding Treatment Additional Instructions: You have been evaluated in the Emergency Department today for abdominal pain. Your evaluation was not suggestive of any emergent condition requiring medical intervention at this time. However, some abdominal problems make take more time to appear. Therefore, it is important for you to watch for any new symptoms or worsening of your current condition. Your symptoms today are likely due to ongoing alcohol and illicit drug abuse. Cessation of these is advised. As abrupt cessation of alcohol can be fatal, you should refer to the resource sheet for help in stopping your addiction with help in a controlled environment. Please contact your PCP for need of close outpatient follow-up and as discussed, it is recommended you follow-up with your GI physician as well Return to the Emergency Department if you experience worsening pain, persistent fevers greater than 100.4, recurrent vomiting, blood in vomit, blood in stool, dark tarry stool, chest pain, difficulty breathing, or any other concerning symptoms. Problem Qualifiers GREG TRACY DO Mar 16, 2021 09:53
[2021-03-16 10:15] LABS: BASO % 1 % (0-3); EOS # 0.1 x10^3/uL (0.0-0.7); EOS % 1 % (0-3); HEMATOCRIT 35.2 % (36.0-47.0); HEMOGLOBIN 11.3 g/dL (12.0-15.5); LYMPH # 1.8 x10^3/uL (1.0-4.8); LYMPH % 45 % (24-48); MEAN CORPUSCULAR HEMOGLOBIN 26 pg (25-35); MEAN CORPUSCULAR HGB CONC 32 g/dL (31-37); MEAN CORPUSCULAR VOLUME 82 fL (79-100); MONO # 0.4 x10^3/uL (0.0-1.1); MONO % 9 % (0-9); NEUT # 1.7 x10^3uL (1.8-7.7); NEUT % 44 % (31-73); PLATELET COUNT 268 x10^3/uL (140-400); RED BLOOD COUNT 4.28 x10^6/uL (3.50-5.40); RED CELL DISTRIBUTION WIDTH 24.9 % (11.5-14.5); WHITE BLOOD COUNT 3.9 x10^3/uL (4.0-11.0)
[2021-03-16 10:24] LABS: CALCIUM 7.9 mg/dL (8.5-10.1); CREATININE 0.7 mg/dL (0.6-1.0); GFR 118.1; POTASSIUM 3.3 mmol/L (3.5-5.1)
[2021-03-16 10:29] LABS: ALBUMIN 3.3 g/dL (3.4-5.0); ALBUMIN/GLOBULIN RATIO 0.8 (1.0-1.7); TOTAL BILIRUBIN 0.4 mg/dL (0.2-1.0); TOTAL PROTEIN 7.7 g/dL (6.4-8.2)
[2021-03-16 10:51] LABS: BARBITURATES NEG (NEG); BENZODIAZEPINES NEG (NEG); CANNABINOIDS NEG (NEG); COCAINE NEG (NEG); METHADONE NEG (NEG); OPIATES NEG (NEG); PHENCYCLIDINE NEG (NEG)
[2021-03-16 10:57] LABS: AMPHETAMINE/METHAMPHETAMINE POS (NEG)
[2021-03-16 11:18] LABS: BILIRUBIN,URINE NEG (NEG); CLARITY,URINE HAZY; COLOR,URINE YELLOW; GLUCOSE,URINE NEG (NEG); NITRITE,URINE NEG (NEG); UROBILINOGEN,URINE 0.2 mg/dL (0.2 mg/dL)
[2021-03-16 11:19] LABS: BACTERIA,URINE MOD /HPF (0-FEW); SQUAMOUS EPITHELIAL CELL,UR MANY /LPF
[2021-03-16 11:36] VITALS: BP 155/108
[2021-03-16 15:44] LABS: PLT ESTIMATE ADEQUATE (ADEQUATE)
[2021-03-16 15:46] LABS: HYPOCHROMIA SLIGHT
== END 2021-03-16 11:36 | disposition home or self-care (01) ==
LOC: ER 09:07
DX: R10.13 Epigastric pain (principal); F10.20 Alcohol dependence, uncomplicated; F15.10 Other stimulant abuse, uncomplicated; F41.9 Anxiety disorder, unspecified; F32.9 Major depressive disorder, single episode, unspecified; I10 Essential (primary) hypertension; F20.9 Schizophrenia, unspecified; Y90.0 Blood alcohol level of less than 20 mg/100 ml
CPT/HCPCS: 36415; 80053; 80307; 81001; 81025; 83690; 84484; 85025; 87086; 93005; 96374; 99285; J2060

== ENCOUNTER 2021-03-19 11:14 | Emergency (ER) | payer MEDICARE ==
[~2021-03-19] VITALS: Ht 157.5 cm; Wt 82.3 kg
--- NOTE | 2021-03-19 11:22 | PHYS DOC ---
Past History Past Medical History: Alcoholism, Anxiety, Depression, Hypertension, Pancreatitis, Schizophrenia Past Surgical History: No Surgical History Smoking: Non-smoker Alcohol Use: Heavy Drug Use: Amphetamine Adult General HPI HPI Patient is a 30-year-old female presenting for anxiety. She was seen at this facility 72 hours by myself and had formal work-up that was nonconcerning for any emergent or surgical issues. She has history of chronic abdominal pain and intermittent pancreatitis due to ongoing alcohol and illicit drug dependence. She still actively abuses both. Reports last drink of alcohol was yesterday evening, states last time she used methamphetamines was earlier this week. States she feels anxious about her health today, states that she is jittery all over and that she has been having changes in her nail bed. She has not followed up with a primary care physician since last ER visit and has made no attempts to do so. She states she is anxious about her health and also just sad but denies any SI and/or HI. Review of Systems Review of Systems Fourteen body systems of review of systems have been reviewed. See HPI for pertinent positives and negative responses, other arredondo all other systems are negative, non-pertinent or non-contributory Allergies Allergies Allergies Coded Allergies Type Severity Reaction Last Updated Verified No Known Drug Allergies 03/16/21 No Physical Exam Physical Exam Constitutional: Well developed, well nourished, no acute distress, non-toxic appearance. HENT: Normocephalic, atraumatic, bilateral external ears normal, oropharynx moist, no oral exudates, nose normal. Eyes: PERRLA, EOMI, conjunctiva normal, no discharge. Neck: Normal range of motion, no tenderness, supple, no stridor. Cardiovascular: Heart rate regular, sinus rhythm, no murmurs rubs or gallops Lungs & Thorax: Bilateral breath sounds clear to auscultation Abdomen: Bowel sounds normal, soft, no tenderness, no masses, no pulsatile masses. Nonsurgical abdomen, no peritoneal signs Skin: Warm, dry, no erythema, no rash. Back: No tenderness, no CVA tenderness. Extremities: No tenderness, no cyanosis, no clubbing, ROM intact, no edema. Neurologic: Alert and oriented X 3, grossly normal motor & sensory function, no focal deficits noted. Psychologic: Anxious affect and mood EKG EKG [] Radiology/Procedures Radiology/Procedures [] Heart Score C/O Chest Pain: No Risk Factors: Risk Factors: DM, Current or recent (<one month) smoker, HTN, HLP, family history of CAD, obesity. Risk Scores: Risk Factors: DM, Current or recent (<one month) smoker, HTN, HLP, family history of CAD, obesity. Course & Med Decision Making Course & Med Decision Making ABCs unremarkable HPI and physical examination unremarkable. I reviewed numerous ER work-up was performed within the past 2 weeks that were grossly nonconcerning Patient has ongoing issue with alcohol and illicit drug dependence, she also has untreated anxiety. She has made no attempt in establishing care without patient PCP and/or mental health professionals I had a hard conversation with patient about ongoing drug abuse and fact that she needed to help herself in outpatient setting seek care if she wants to get better. I disclosed I could perform further evaluation in ER with diagnostic work-up but patient deferred given numerous work-ups performed recently. I feel this is acceptable but did disclose that in deferring further work-up, we could miss potentially emergent and/or surgical pathology patient has full capacity. Understood risks of deferring further work-up. She just wants anxiety and pain control. 1 mg p.o. Ativan given for anxiety in fact that last drink was yesterday in an alcohol dependent individual in addition to 20 mg p.o. famotidine administered for GI purposes I advised patient to defer to extensive ER resources I gave at last visit regarding addiction and seeking help in outpatient setting. She was provided additional resources today on local primary care physicians whom she should contact first thing Sunday to set up an establish care strict return precautions were discussed with good understanding by patient, all questions and concerns addressed prior to ER departure Surjit Disclaimer Dragon Disclaimer This electronic medical record was generated, in whole or in part, using a voice recognition dictation system. Departure Departure: Impression: Primary Impression: Anxiety about health Additional Impressions: Alcohol dependence Polysubstance abuse Disposition: HOME / SELF CARE / HOMELESS Condition: STABLE Referrals: PCP,ISAI (PCP) Additional Instructions: As discussed prior to ER departure, your vitals and physical examination were grossly nonconcerning. You have had numerous comprehensive work-ups in the ER setting that have been grossly unremarkable. Your symptoms are likely due to ongoing alcohol and illicit drug use. You are anxious about your health and rig htly so. With that said, it is of the utmost importance to follow-up with outpatient primary care physician and mental health professionals for continued care. The emergency room is not the place to seek continuity of care. I did disclose without comprehensive ER work-up we could be missing potentially emergent and/or surgical pathology. With that said, it is important for you to monitor your symptoms and if you notice any concerning signs or symptoms that present prior to outpatient follow-up you should come back for repeat evaluation. It was a pleasure to take care of you and I wish you the best going forward Problem Qualifiers GREG TRACY DO Mar 19, 2021 11:22
[2021-03-19] MEDS ORDERED: LORazepam 1 MG TABLET PO ONE (11:45)
[2021-03-19] MEDS ORDERED: FAMOTIDINE 20 MG TABLET PO ONE (11:45)
[2021-03-19 12:56] VITALS: BP 160/100
== END 2021-03-19 12:58 | disposition home or self-care (01) ==
LOC: ER 11:14
DX: F41.9 Anxiety disorder, unspecified (principal); F10.20 Alcohol dependence, uncomplicated; F19.10 Other psychoactive substance abuse, uncomplicated; I10 Essential (primary) hypertension; F15.10 Other stimulant abuse, uncomplicated; Y90.8 Blood alcohol level of 240 mg/100 ml or more
CPT/HCPCS: 99283-25

== ENCOUNTER 2021-05-02 10:35 | Emergency (ER) | payer MEDICARE ==
[~2021-05-02] VITALS: Ht 157.5 cm; Wt 82.3 kg
[~2021-05-02 10:35] MED LIST changes: -FLUO20CA20 PO; +FLUO20CA22 PO
--- NOTE | 2021-05-02 11:09 | PHYS DOC ---
Past History Past Medical History: Alcoholism, Anxiety, Depression, Hypertension, Pancreatitis, Schizophrenia Past Surgical History: No Surgical History Smoking: Non-smoker Alcohol Use: Heavy Drug Use: Amphetamine Adult General Chief Complaint Chief Complaint: ABDOMINAL PAIN HPI HPI Patient is a 30-year-old female presenting for epigastric pain. This is acute on chronic in nature. She has history of pancreatitis that is exacerbated by known alcohol use. Patient admits to drinking 1/5 of rum yesterday evening, states she has seen outpatient services since last visit approximately 1 month prior to discuss alcohol cessation but states she has had increased life stressors and has been drinking daily. No other significant change in health. Reports typical epigastric pain that is focal without radiation which she feels is consistent with prior episodes of pancreatitis prompting her to come in for evaluation today Review of Systems Review of Systems Fourteen body systems of review of systems have been reviewed. See HPI for pertinent positives and negative responses, other arredondo all other systems are negative, non-pertinent or non-contributory Allergies Allergies Allergies Coded Allergies Type Severity Reaction Last Updated Verified No Known Drug Allergies 03/19/21 No Physical Exam Physical Exam Constitutional: Well developed, well nourished, no acute distress, non-toxic appearance. HENT: Normocephalic, atraumatic, bilateral external ears normal, oropharynx moist, no oral exudates, nose normal. Eyes: PERRLA, EOMI, conjunctiva normal, no discharge. Neck: Normal range of motion, no tenderness, supple, no stridor. Cardiovascular: Heart rate regular, sinus rhythm, no murmurs rubs or gallops Lungs & Thorax: Bilateral breath sounds clear to auscultation Abdomen: Bowel sounds normal, soft, no tenderness, no masses, no pulsatile masses. Nonsurgical abdomen, no peritoneal signs Skin: Warm, dry, no erythema, no rash. Back: No tenderness, no CVA tenderness. Extremities: No tenderness, no cyanosis, no clubbing, ROM intact, no edema. Neurologic: Alert and oriented X 3, grossly normal motor & sensory function, no focal deficits noted. Psychologic: Affect normal, judgement normal, mood normal. Current Patient Data Vital Signs Vital Signs Date Time Temp Pulse Resp B/P (MAP) Pulse Ox O2 Delivery O2 Flow Rate FiO2 05/02/21 10:42 98.0 108 18 183/125 (144) 100 Room Air Lab Results Laboratory Tests Test 05/02/21 11:18 White Blood Count 7.9 x10^3/uL Red Blood Count 4.72 x10^6/uL Hemoglobin 12.7 g/dL Hematocrit 38.9 % Mean Corpuscular Volume 83 fL Mean Corpuscular Hemoglobin 27 pg Mean Corpuscular Hemoglobin Concent 33 g/dL Red Cell Distribution Width 20.8 % Platelet Count 404 x10^3/uL Neutrophils (%) (Auto) 65 % Lymphocytes (%) (Auto) 29 % Monocytes (%) (Auto) 5 % Eosinophils (%) (Auto) 0 % Basophils (%) (Auto) 1 % Neutrophils # (Auto) 5.1 x10^3uL Lymphocytes # (Auto) 2.3 x10^3/uL Monocytes # (Auto) 0.4 x10^3/uL Eosinophils # (Auto) 0.0 x10^3/uL Basophils # (Auto) 0.0 x10^3/uL Platelet Estimate Pending Sodium Level 140 mmol/L Potassium Level 3.8 mmol/L Chloride Level 103 mmol/L Carbon Dioxide Level 21 mmol/L Anion Gap 16 Blood Urea Nitrogen 16 mg/dL Creatinine 0.6 mg/dL Estimated GFR (Cockcroft-Gault) 141.1 BUN/Creatinine Ratio 27 Glucose Level 122 mg/dL Calcium Level 8.4 mg/dL Total Bilirubin 0.6 mg/dL Aspartate Amino Transf (AST/SGOT) 120 U/L Alanine Aminotransferase (ALT/SGPT) 49 U/L Alkaline Phosphatase 151 U/L Troponin I High Sensitivity 26 ng/L Total Protein 8.9 g/dL Albumin 3.8 g/dL Albumin/Globulin Ratio 0.7 Lipase 225 U/L Ethyl Alcohol Level < 10 mg/dL Current Medications Medications (Trade) Dose Ordered Sig/Luis Felipe Route PRN Reason Start Time Stop Time Status Last Admin Dose Admin Lorazepam (Ativan Inj) 0.5 mg 1X ONCE IVP 05/02/21 11:30 05/02/21 11:31 DC 05/02/21 11:30 Fentanyl Citrate (Fentanyl 2ml Vial) 50 mcg 1X ONCE IVP 05/02/21 11:30 05/02/21 11:31 DC 05/02/21 11:28 Iohexol (Omnipaque 300 Mg/ml) 75 ml 1X ONCE IV 05/02/21 11:30 05/02/21 11:34 DC 05/02/21 11:38 EKG EKG EKG ordered and interpreted by myself at 1055 hrs. as sinus tachycardia at 106 bpm, unremarkable intervals, left axis deviation, no obvious ischemic findings, no STEMI Radiology/Procedures Radiology/Procedures Exam Date: 05/02/2021 11:[address] ABDOMEN+PELVIS W Indication: Reason: epigastric pain / Spl. Instructions: / History: . TECHNIQUE: CT examination of the abdomen and pelvis was performed following the administration of nonionic intravenous contrast. One or more of the following dose reduction techniques were utilized: *Automated exposure control (AEC) *Adjustment of mA and/or kV according to patient size *Use of iterative reconstruction technique *CT scan done according to ALARA, or ALARA/IMAGE GENTLY COMPARISON: January 26, 2021 and January 20, 2021 FINDINGS: Motion artifact limits evaluation. The visualized lung bases are clear. There is diffuse fatty infiltration of the liver. Gallbladder is distended up to 5 x 11 cm, but without definite CT evidence for wall thickening or perich olecystic inflammation or fluid. There may be mild inflammatory changes around the body and tail the pancreas, the motion artifact limits evaluation of this area in particular. No loculated collections are seen. No pseudoaneurysm is identified. The pancreas otherwise enhances normally without definite evidence for pancreatic necrosis. The liver, spleen, adrenal glands and kidneys are otherwise normal. Urinary bladder is normal in appearance. There is no bowel obstruction or inflammation. The appendix is normal. No significant atherosclerotic calcifications are seen. No lymphadenopathy or ascites is seen. Osseous structures are intact. IMPRESSION: Motion artifact limits evaluation, particularly of the pancreas. There may be mild inflammatory changes around the body and tail of the pancreas, raising suspicion for possible acute pancreatitis, but without evidence for secondary complications of acute pancreatitis. Correlation with lipase is recommended. Distended gallbladder but without definite CT evidence for wall thickening or pericholecystic inflammatory changes or fluid. If there is clinical concern for acute cholecystitis, consider further evaluation with right upper quadrant ultrasound. Electronically signed by: Marino Potts MD (05/02/2021 12:11 PM) [id number] Heart Score C/O Chest Pain: No HEART Score for Chest Pain: HEART Score for Chest Pain Response (Comments) Value History Slighlty/Non-Suspicious 0 ECG Normal 0 Age < 45 0 Risk Factors No Risk Factors 0 Troponin < Normal Limit 0 Total 0 Risk Factors: Risk Factors: DM, Current or recent (<one month) smoker, HTN, HLP, family history of CAD, obesity. Risk Scores: Risk Factors: DM, Current or recent (<one month) smoker, HTN, HLP, family history of CAD, obesity. Course & Med Decision Making Course & Med Decision Making ABCs unremarkable. I disclosed entirety of ER findings and discussed most likely diagnosis of acute on chronic abdominal pain likely flareup of alcoholic gastritis versus early acute on chronic pancreatitis. Other diagnoses were discussed with patient such as other intra-abdominal abnormalities but all deemed less likely causes of patient's presentation. Patient symptoms improved with ER intervention. Discussed need for alcohol cessation safely, patient has prior resources given and is aware of these for when she is ready to quit. Plan of care discussed at length with need for close outpatient follow-up to review today's ER visit stressed. Strict return precautions were also discussed at length with good understanding verbalized by patient. Patient voiced understanding and agreement with the plan. Patient knows to come back for repeat evaluation if concerning signs or symptoms present prior to outpatient follow- up. Hemodynamically stable, ambulatory and well-appearing at time of disposition. Dragon Disclaimer Dragon Disclaimer This electronic medical record was generated, in whole or in part, using a voice recognition dictation system. Departure Departure: Impression: Primary Impression: Abdominal pain Additional Impression: Alcoholism Disposition: HOME / SELF CARE / HOMELESS Condition: STABLE Referrals: PCP,NO (PCP) Additional Instructions: You have been evaluated in the Emergency Department today for abdominal pain. Your evaluation was not suggestive of any emergent condition requiring medical intervention at this time. However, some abdominal problems make take more time to appear. Therefore, it is important for you to watch for any new symptoms or worsening of your current condition. Return to the Emergency Department if you experience worsening pain, persistent fevers greater than 100.4, recurrent vomiting, blood in vomit, blood in stool, dark tarry stool, chest pain, difficulty breathing, or any other concerning symptoms. Problem Qualifiers GREG TRACY DO May 02, 2021 11:09
[2021-05-02] MEDS ORDERED: IOHEXOL 300 MG/ML 75 ML VIAL. IV ONE (11:30)
[2021-05-02 11:48] LABS: BASO % 1 % (0-3); EOS % 0 % (0-3); HEMATOCRIT 38.9 % (36.0-47.0); HEMOGLOBIN 12.7 g/dL (12.0-15.5); LYMPH # 2.3 x10^3/uL (1.0-4.8); LYMPH % 29 % (24-48); MEAN CORPUSCULAR HEMOGLOBIN 27 pg (25-35); MEAN CORPUSCULAR HGB CONC 33 g/dL (31-37); MEAN CORPUSCULAR VOLUME 83 fL (79-100); MONO # 0.4 x10^3/uL (0.0-1.1); MONO % 5 % (0-9); NEUT # 5.1 x10^3uL (1.8-7.7); NEUT % 65 % (31-73); PLATELET COUNT 404 x10^3/uL (140-400); RED BLOOD COUNT 4.72 x10^6/uL (3.50-5.40); RED CELL DISTRIBUTION WIDTH 20.8 % (11.5-14.5); WHITE BLOOD COUNT 7.9 x10^3/uL (4.0-11.0)
[2021-05-02 12:09] LABS: CALCIUM 8.4 mg/dL (8.5-10.1); CREATININE 0.6 mg/dL (0.6-1.0); GFR 141.1; POTASSIUM 3.8 mmol/L (3.5-5.1)
--- NOTE | 2021-05-02 12:14 | RAD ---
Exam Date: 05/02/2021 11:[address] ABDOMEN+PELVIS W Indication: Reason: epigastric pain / Spl. Instructions: / History: . TECHNIQUE: CT examination of the abdomen and pelvis was performed following the administration of no nionic intravenous contrast. One or more of the following dose reduction techniques were utilized: *Automated exposure control (AEC) *Adjustment of mA and/or kV according to patient size *Use of iterative reconstruction technique *CT scan done according to ALARA, or ALARA/IMAGE GENTLY COMPARISON: January 26, 2021 and January 20, 2021 FINDINGS: Motion artifact limits evaluation. The visualized lung bases are clear. There is diffuse fatty infiltration of the liver. Gallbladder is distended up to 5 x 11 cm, but with out definite CT evidence for wall thickening or pericholecystic inflammation or fluid. There may be mild inflammatory changes around the body and tail the pancreas, the motion artifact ashley its evaluation of this area in particular. No loculated collections are seen. No pseudoaneurysm is identified. The pancreas otherwise enhances normally without definite evidence for pancreatic necros is. The liver, spleen, adrenal glands and kidneys are otherwise normal. Urinary bladder is normal in appearance. There is no bowel obstruction or inflammation. The appendix is normal. No significant atherosclerotic calcifications are seen. No lymphadenopathy or ascites is seen. Osseous structures are intact. IMPRESSION: Motion artifact limits evaluation, particularly of the pancreas. There may be mild inflammatory hernandez ges around the body and tail of the pancreas, raising suspicion for possible acute pancreatitis, but without evidence for secondary complications of acute pancreatitis. Correlation with lipase is recom mended. Distended gallbladder but without definite CT evidence for wall thickening or pericholecystic inflamm atory changes or fluid. If there is clinical concern for acute cholecystitis, consider further evalu ation with right upper quadrant ultrasound. Electronically signed by: Marino Potts MD (05/02/2021 12:11 PM) [id number]
[2021-05-02 12:15] LABS: ALBUMIN 3.8 g/dL (3.4-5.0); ALBUMIN/GLOBULIN RATIO 0.7 (1.0-1.7); TOTAL BILIRUBIN 0.6 mg/dL (0.2-1.0); TOTAL PROTEIN 8.9 g/dL (6.4-8.2)
[2021-05-02 12:40] VITALS: BP 160/94
[2021-05-02 12:45] LABS: PLT ESTIMATE ADEQUATE (ADEQUATE); POIKILOCYTOSIS MOD
[2021-05-02 12:46] LABS: ANISOCYTOSIS SLIGHT; TEAR DROP CELLS MOD
--- NOTE | 2021-05-02 18:59 | EKG ---
[address] [address] Test Date: 2021-05-02 Test Time: 10:50:59 Pat Name: OSCAR SALCEDO Department: Room: Gender: F Acid Splicer: ALFREDA : 1990 Requested By: GREG TRACY Order Number: [id number] Reading MD: Measurements Intervals [place] Rate: 106 P: 42 MT: 154 QRS: -8 QRSD: 82 T: 18 QT: 350 QTc: 467 Interpretive Statements SINUS TACHYCARDIA LEFT ATRIAL ABNORMALITY LEFTWARD AXIS ABNORMAL ECG RI6.02 No previous ECG available for comparison
== END 2021-05-02 12:53 | disposition home or self-care (01) ==
LOC: ER 10:35
DX: R10.13 Epigastric pain (principal); F10.20 Alcohol dependence, uncomplicated; F41.9 Anxiety disorder, unspecified; F32.9 Major depressive disorder, single episode, unspecified; I10 Essential (primary) hypertension; F20.9 Schizophrenia, unspecified; F15.10 Other stimulant abuse, uncomplicated; Y90.0 Blood alcohol level of less than 20 mg/100 ml
CPT/HCPCS: 36415; 74177; 80053; 83690; 84484; 85025; 93005; 96374; 96375; 99285; G0480; J2060; J3010; Q9967

== ENCOUNTER 2021-05-11 04:32 | Emergency (ER) | payer MEDICARE ==
[~2021-05-11] VITALS: Ht 157.5 cm; Wt 87.0 kg
--- NOTE | 2021-05-11 04:34 | PHYS DOC ---
Past History Past Medical History: Alcoholism, Anxiety, Depression, Hypertension, Pancreatitis, Schizophrenia Past Surgical History: No Surgical History Smoking: Non-smoker Alcohol Use: Heavy Drug Use: Amphetamine General Adult HPI: HPI: ".. I ve been having back pain.. I got a CT at [facility] today.. they said they did not find anything.. .. I am having pain... in my back and kidney areas.. " Patient is a 30 year old female who presents with above hx and complaints mid ba ck pain which has gotten persistently worse today. Pt. denies any history of trauma. Patient does admit to using methamphetamine and alcohol in excess. Patient does have a history of anxiety, schizophrenia/schizoaffective disorder, depression, alcohol dependence, pancreatitis, hypertension, polysubstance abuse, and obesity. Patient normally follows at [facility] for her care. Patient reportedly did receive a CT with contrast evaluate her back pain today at the [facility]. Patient denies any previous history of kidney stones with her family members. Patient denies any fever or chills. Patient denies any history of cancer. Patient denies any history of immunosuppression. Patient denies any recent IV drug use. Does admit to smoking some methamphetamine 2 days ago. Review of Systems: Review of Systems: Constitutional: Denies fever or chills Eyes: Denies change in visual acuity HENT: Denies nasal congestion or sore throat Respiratory: Denies cough or shortness of breath Cardiovascular: Denies chest pain or edema GI: Denies abdominal pain, nausea, vomiting, bloody stools or diarrhea : Denies dysuria Musculoskeletal: Complains of back pain Integument: Denies rash Neurologic: Denies headache, focal weakness or sensory changes Endocrine: Denies polyuria or polydipsia Lymphatic: Denies swollen glands Psychiatric: Denies depression or anxiety Family History: Family History: Noncontributory to presentation Current Medications: Current Meds: See nursing for home meds Allergies: Allergies: Allergies Coded Allergies Type Severity Reaction Last Updated Verified No Known Drug Allergies 03/19/21 No Physical Exam: PE: Constitutional: Reports moderate acute distress, non-toxic appearance. [] HENT: Normocephalic, atraumatic, bilateral external ears normal, oropharynx moist, no oral exudates, nose normal. [] Eyes: PERRLA, EOMI, conjunctiva normal, no discharge. Glasses Neck: Normal range of motion, no tenderness, supple, no stridor. [] Cardiovascular :tachycardia:Heart rate regular rhythm, no murmur [] Lungs & Thorax: Bilateral breath sounds equal apex with few scattered wheezes on auscultation [] Abdomen: Bowel sounds creased, soft, no tenderness, no masses, no pulsatile masses. Obese. Skin: Warm, dry, no erythema, no rash. Multiple old injection sites and scarring antecubital spaces. Back: Mid back tenderness, some left CVA tenderness. [] No midline tenderness. Extremities: No tenderness, no cyanosis, no clubbing, ROM intact, no edema. No cording appreciated Neurologic: Alert and oriented X 3, moves all extremities on request, does have distal sensory,, no focal deficits noted. [] Psychologic: Affect anxious, judgement normal, mood normal. Does appear to have difficulty in answering questions. Very jumpy. Twitchy. Denies any hallucinations. Denies any delusions. Denies any suicidal ideation. Denies any homicidal ideation EKG: EKG: [] Radiology/Procedures: Radiology/Procedures: [] Heart Score: C/O Chest Pain: N/A Risk Factors: Risk Factors: DM, Current or recent (<one month) smoker, HTN, HLP, family history of CAD, obesity. Risk Scores: Score 0 - 3: 2.5% MACE over next 6 weeks - Discharge Home Score 4 - 6: 20.3% MACE over next 6 weeks - Admit for Clinical Observation Score 7 - 10: 72.7% MACE over next 6 weeks - Early Invasive Strategies Course & Med Decision Making: Course & Med Decision Making Pertinent Labs and Imaging studies reviewed. (See chart for details) Patient keep follow-up at [facility]. Reviewed the CT findings from today with primary care at [facility]. Take Tylenol and ibuprofen for pain. Patient was given 1 IM injection of Toradol 60 mg. Patient take her hypertensive meds appears directed. [facility]. Advised patient that her methamphetamine abuse does exacerbate her hypertension. Patient encouraged to keep follow-ups at [facility]. Patient to take her blood pressure meds as directed. Anxiety meds and psych med s to be done at [facility] Impression: 1. Back Pain 2. Polysubstance abuse-screen positive for methamphetamine tonight. 3. History of schizoaffective disorder 4. History of anxiety 5. History of depression 6. History of alcohol abuse 7. History of hypertension- ( did not take BP meds today. ) 8. Appears to Exhibit Narcotic Seeking Behaviors [] Dragon Disclaimer: Dragon Disclaimer: This electronic medical record was generated, in whole or in part, using a voice recognition dictation system. Departure Departure: Referrals: PCP,NO (PCP) Surjit Disclaimer This chart was dictated in whole or in part using Voice Recognition software in a busy, high-work load, and often noisy Emergency Department environment. It may contain unintended and wholly unrecognized errors or omissions. JILLIAN LONG MD May 11, 2021 04:34
[2021-05-11 05:25] LABS: AMPHETAMINE/METHAMPHETAMINE POS (NEG); BARBITURATES NEG (NEG); BENZODIAZEPINES NEG (NEG); CANNABINOIDS NEG (NEG); COCAINE NEG (NEG); METHADONE NEG (NEG); OPIATES NEG (NEG); PHENCYCLIDINE NEG (NEG)
[2021-05-11 05:29] LABS: BACTERIA,URINE FEW /HPF (0-FEW); BILIRUBIN,URINE SMALL (NEG); CLARITY,URINE HAZY; COLOR,URINE YELLOW; GLUCOSE,URINE NEG (NEG); NITRITE,URINE NEG (NEG); SQUAMOUS EPITHELIAL CELL,UR OCC /LPF; UROBILINOGEN,URINE 0.2 mg/dL (0.2 mg/dL)
[2021-05-11] MEDS: KETOROLAC 60 MG/2 ML VIAL. IM ONE ×2 (05:36→05:45)
[2021-05-11] MEDS ORDERED: KETOROLAC 60 MG/2 ML VIAL. IM ONE (06:00)
[2021-05-11 06:20] VITALS: BP 166/104
== END 2021-05-11 06:20 | disposition home or self-care (01) ==
LOC: ER 04:32
DX: M54.6 Pain in thoracic spine (principal); F19.10 Other psychoactive substance abuse, uncomplicated; F20.9 Schizophrenia, unspecified; F41.9 Anxiety disorder, unspecified; F32.9 Major depressive disorder, single episode, unspecified; I10 Essential (primary) hypertension; F10.20 Alcohol dependence, uncomplicated; F15.10 Other stimulant abuse, uncomplicated; Y90.0 Blood alcohol level of less than 20 mg/100 ml
CPT/HCPCS: 36415; 80307; 81001; 81025; 96372; 99283; J1885

== ENCOUNTER 2021-09-04 03:58 | Emergency (ER) | payer MEDICARE ==
[~2021-09-04] VITALS: Ht 157.5 cm; Wt 88.8 kg
--- NOTE | 2021-09-04 04:03 | PHYS DOC ---
Past History Past Medical History: Alcoholism, Anxiety, Depression, Hypertension, Pancreatitis, Schizophrenia (JILLIAN LONG MD) Past Surgical History: No Surgical History (JILLIAN LONG MD) Smoking: Non-smoker Alcohol Use: Occasionally Drug Use: Amphetamine (JILLIAN LONG MD) General Adult EDM: Chief Complaint: ABDOMINAL PAIN HPI: HPI: "I have got really bad abdomen pain denies.... I think it was the ribs... I ate ribs left over from yesterday... I did drink a little when I ate the ribs.... That was about 9 PM.... But now I am really hurting..." Patient is a 30 year old female who presents with above hx and complaints of abdomen pain. The pain started after a meal of rib and alcohol. Patient states no one got sick the night before when they ate the ribs. Patient is well-known to the emergency department and has had multiple previous admissions. Patient has known alcoholic. Patient did consume alcohol with her ingestion the ribs. Patient presents to the ED today with complaints of epigastric pain. Pain is s imilar to previous pancreatitis episodes. Patient pain nausea and vomiting. Patien denies any tarry stools. Patient has had her COVID vaccinations. Patient has not had her flu vaccination. No history of trauma. No history of previous abdomen surgeries. Denies any previous history of gallbladder disease with her family members. She has a longstanding history of schizoaffective disorder. Patient does have a history of noncompliance with her medical regimens. Patient has past medical history of chronic alcoholism, chronic pancreatitis, schizoaffective disorder, bipolar disorder, hypertension, and depression.. Patient does smoke Tobacco and has in the past used of methamphetamine. Patient denies any suicidal ideation. Patient denies any active hallucinations. (JILLIAN LONG MD) Review of Systems: Review of Systems: Constitutional: Denies fever or chills Eyes: Denies change in visual acuity HENT: Denies nasal congestion or sore throat Respiratory: Denies cough or shortness of breath Cardiovascular: Denies chest pain or edema GI: Denies abdominal pain, nausea, vomiting, bloody stools or diarrhea : Denies dysuria Musculoskeletal: Denies back pain or joint pain Integument: Denies rash Neurologic: Denies headache, focal weakness or sensory changes Endocrine: Denies polyuria or polydipsia Lymphatic: Denies swollen glands Psychiatric: Denies depression or anxiety (JILLIAN LONG MD) Family History: Family History: Noncontributory to presentation (JILLIAN LONG MD) Current Medications: Current Meds: See nursing for home meds (JILLIAN LONG MD) Allergies: Allergies: Allergies Coded Allergies Type Severity Reaction Last Updated Verified No Known Drug Allergies 03/19/21 No (JILLIAN LONG MD) Physical Exam: PE: Constitutional: Moderate acute distress, non-toxic appearance. [] HENT: Normocephalic, atraumatic, bilateral external ears normal, oropharynx moist, no oral exudates, nose normal. [] Eyes: PERRLA, EOMI, conjunctiva normal, no discharge. Glasses Neck: Normal range of motion, no tenderness, supple, no stridor. [] Cardiovascular: Tachycardia heart rate regular rhythm, no murmur [] Lungs & Thorax: Bilateral breath sounds to apex with scattered wheezes auscultation [] Abdomen: Bowel sounds normal, soft, epigastric tenderness, no masses, no pulsatile masses. Declines rectal exam at this time. Skin: Warm, dry, no erythema, no rash. [] Back: No tenderness, no CVA tenderness. [] Extremities: No tenderness, no cyanosis, no clubbing, ROM intact, no edema. No cording appreciated. No psoas sign. Neurologic: Alert and oriented X 3, moves extremities on request has distal sensory, no focal deficits noted. [] Psychologic: Affect anxious, judgement normal, mood normal. [] (JILLIAN LONG MD) EKG: EKG: My interpretation of EKG shows sinus tachycardia rhythm at 104 bpm. No other acute morphology appreciated. No signs of acute STEMI of contralateral changes. Time of EKG is 0 424. (JILLIAN LONG MD) Radiology/Procedures: Radiology/Procedures: [[address] [address] IMAGING REPORT Signed PATIENT: OSCAR SALCEDO LACCOUNT: [id number] : 1990 LOCATION: ER AGE: 30 SEX: F EXAM STATUS: REG ER ORD. PHYSICIAN: JILLIAN LONG MD REASON: pain PROCEDURE: ACUTE ABDOMEN SERIES EXAM: XR ABDOMEN COMP ACUTE 09/04/2021 4:50 AM CLINICAL INDICATION: Pain COMPARISON: None TECHNIQUE: AP supine and upright view of the abdomen. PA view of the chest FINDINGS: Bowel gas pattern is nonspecific and nonobstructive. Normal volume of stool. No abnormal calcifications. No acute osseous abnormality. The heart is normal in size. Lungs are adequately expanded. No consolidation, pleural effusion or pneumothorax. IMPRESSION: Normal abdominal series radiograph. Electronically signed by: Valentina Cantor MD (09/04/2021 6:07 AM) [facility] DICTATED AND SIGNED BY: VALENTINA CANTOR MD DATE: 09/04/21605 CC: JILLIAN LONG MD; PCP,NO ~ ][place] [address] IMAGING REPORT Signed PATIENT: OSCAR SALCEDO LACCOUNT: [id number] : 1990 LOCATION: ER AGE: 30 SEX: F EXAM STATUS: REG ER ORD. PHYSICIAN: JILLIAN LONG MD REASON: epigasgtric pain , hx pancreatitis PROCEDURE: CT ABD PELV W/ORAL&IV CONTRAST CT ABDOMEN+PELVIS W dated 09/04/2021 7:16 AM Indication:Reason: epigasgtric pain , hx pancreatitis / Spl. Instructions: ORAL CONTRAST GIVEN 0550, per Dr. caraballo IV only 0640, kgm / History: Comparison: CT 07/24/2021. Technique: CT images were performed through the abdomen and pelvis following oral contrast ingestion and using an infusion of 75 mL Omnipaque 300. One or more of the following individualized dose reduction techniques were utilized for this examination: 1. Automated exposure control 2. Adjustment of the mA and/or kV according to patient size 3. Use of iterative reconstruction technique Findings: A small groundglass type opacity in the lingula appears unchanged. This reportedly has been present dating back at least to CTA chest of 03/15/2019. The lung bases otherwise are clear. The liver again shows diffuse fatty infiltration. No focal liver lesion is seen. The spleen appears normal. Both kidneys enhance with contrast. There is no apparent mass or obstruction. The adrenal glands are not enlarged. The pancreas is relatively small for age. No mass or fluid collection is seen. The pancreas appears to enhance homogeneously. No obvious adjacent inflammation is seen. There is no apparent retroperitoneal or mesenteric adenopathy. No abdominal mass or definite inflammatory process is seen. The appendix is relatively prominent in caliber, showing diameter about 7 mm, but no adjacent inflammation is seen. Images through the pelvis show no abnormality of the distal ureters or bladder. No pelvic or inguinal adenopathy is seen. The uterus and right adnexal area appear normal for age. There is now a 5.2 cm left ovarian cyst. There is no separate pelvic mass or inflammatory process. IMPRESSION: 5.2 cm left ovarian cyst. Mildly prominent appendiceal diameter without adjacent inflammatory change. Fatty infiltration of the liver. Relatively small pancreas without clear cut CT evidence of pancreatitis. Electronically signed by: Tere Celestin Jr., MD (09/04/2021 7:47 AM) [id number] DICTATED AND SIGNED BY: TERE CELESTIN Jr, MD DATE: 09/04/21 0732 CC: TAMMI CARABALLO MD; JILLIAN LONG MD; PCP,NO ~ (JILLIAN LONG MD) Heart Score: C/O Chest Pain: No Risk Factors: Risk Factors: DM, Current or recent (<one month) smoker, HTN, HLP, family history of CAD, obesity. Risk Scores: Score 0 - 3: 2.5% MACE over next 6 weeks - Discharge Home Score 4 - 6: 20.3% MACE over next 6 weeks - Admit for Clinical Observation Score 7 - 10: 72.7% MACE over next 6 weeks - Early Invasive Strategies (JILLIAN LONG MD) C/O Chest Pain: No (TAMMI CARABALLO MD) Course & Med Decision Making: Course & Med Decision Making Pertinent Labs and Imaging studies reviewed. (See chart for details) Patient endorsed to at shift change. Impression": 1. Abdomen Pain 2. Hx.Pancreatitis /alcoholic pancreatitis 3. Mild anemia hemoglobin 11.5 4. Elevation in LFTs AST 160, ALT 64 alk phos 241 5. Critical hypokalemia 2.8 6. Diabetes glucose 268 7. Hx. Ovarian Cyst 8. Hx. Chronic Alcohol Abuse 9. Hx. Bipolar 10.Hx. Schizophrenia 1l. Hx. of Noncompliance 12. Drug Screen + for ETOH and methamphetamine [] (JILLIAN LONG MD) Course & Med Decision Making Patient care handed off to me at checkout pending CT. Patient awake alert and oriented no acute distress. Able to take p.o. without issue. Potassium replaced given hypokalemia. Toxicology positive for methamphetamine and alcohol. CT with a left ovarian cyst, fatty infiltration of the liver and no CT evidence of pancreatitis with a normal lipase. Discussed all findings with patient. Patient stated she was feeling better and was ready to go home. Advised that over the next several days to eat a light clear diet staying away from anything heavy or fatty and staying away from any alcohol as well. Advised to follow-up tomorrow morning first thing with her primary care physician update on her ED visit and set up a follow-up as soon as possible. Gave strict return precautions to the ED. Patient grateful, verbalized understanding and agreed with plan of discharge. (TAMMI CARABALLO MD) Dragon Disclaimer: Dragon Disclaimer: This electronic medical record was generated, in whole or in part, using a voice recognition dictation system. (JILLIAN LONG MD) Departure Departure: Impression: Primary Impression: Abdominal pain Additional Impressions: Hypokalemia Nausea & vomiting Alcoholism Ovarian cyst Disposition: 01 HOME / SELF CARE / HOMELESS Condition: STABLE Referrals: PCP,ISAI (PCP) EVELIN ARORA Patient Instructions: Abdominal Pain, Alcohol Problems, Alcoholic Liver Disease, [id number], Hypokalemia, Ovarian Cyst Additional Instructions: Thank you for coming into the emergency department tonight allowing us to take care of you. Please read the attached information carefully go over things we discussed. As we discussed, over the next several days eat a light clear diet with lots of fluid and stay away from alcohol and any other drugs that are not prescribed to you by a physician. Please follow-up first thing tomorrow morning with your primary care physician update on your ED visit and set up a follow-up as soon as possible to discuss your ED visit. Please come back with new or concerning symptoms as discussed. Scripts Ondansetron (ONDANSETRON ODT) 4 Mg Tab.rapdis 1 TAB PO PRN Q6-8HRS for N/V for 7 Days, #16 TAB Prov: TAMMI CARABALLO MD 09/04/21 JILLIAN LONG MD Sep 04, 2021 04:03 TAMMI CARABALLO MD Sep 04, 2021 08:24
[2021-09-04] MEDS ORDERED: IV RINGERS SOLUTION,LACTATED 1,000 ML IV SCH (04:15)
[2021-09-04] MEDS ORDERED: ONDANSETRON PF 4 MG/2 ML VIAL. IVP ONE (04:15)
[2021-09-04] MEDS ORDERED: FAMOTIDINE 20 MG/2 ML VIAL IVP ONE (04:15)
[2021-09-04] MEDS ORDERED: KETOROLAC 30 MG/ML VIAL. IVP ONE (04:15)
[2021-09-04 04:24] LABS: BASO # 0.1 x10^3/uL (0.0-0.2); BASO % 2 % (0-3); EOS # 0.1 x10^3/uL (0.0-0.7); EOS % 1 % (0-3); HEMATOCRIT 35.1 % (36.0-47.0); HEMOGLOBIN 11.5 g/dL (12.0-15.5); LYMPH # 3.2 x10^3/uL (1.0-4.8); LYMPH % 47 % (24-48); MEAN CORPUSCULAR HEMOGLOBIN 26 pg (25-35); MEAN CORPUSCULAR HGB CONC 33 g/dL (31-37); MEAN CORPUSCULAR VOLUME 81 fL (79-100); MONO # 0.4 x10^3/uL (0.0-1.1); MONO % 6 % (0-9); NEUT % 44 % (31-73); PLATELET COUNT 389 x10^3/uL (140-400); RED BLOOD COUNT 4.34 x10^6/uL (3.50-5.40); RED CELL DISTRIBUTION WIDTH 22.3 % (11.5-14.5); WHITE BLOOD COUNT 6.8 x10^3/uL (4.0-11.0)
[2021-09-04 04:36] LABS: ANISOCYTOSIS SLIGHT; MICROCYTOSIS SLIGHT; PLT ESTIMATE ADEQUATE (ADEQUATE)
[2021-09-04 04:43] LABS: ALBUMIN 3.2 g/dL (3.4-5.0); CREATININE 0.8 mg/dL (0.6-1.0); DIRECT BILIRUBIN 0.1 mg/dL (0.0-0.2); GFR 101.2; TOTAL BILIRUBIN 0.4 mg/dL (0.2-1.0); TOTAL PROTEIN 8.6 g/dL (6.4-8.2)
[2021-09-04 04:48] LABS: POTASSIUM 2.8 mmol/L (3.5-5.1)
[2021-09-04] MEDS ORDERED: POTASSIUM CHLORIDE 20 MEQ TABLET.ER. PO ONE (05:00)
[2021-09-04] MEDS ORDERED: MAGNESIUM HYDROXIDE 2,400 MG/30 ML ORAL.SUSP. PO ONE (05:00)
[2021-09-04 05:15] LABS: INFLUENZA A PATIENT NEGATIVE (NEGATIVE); INFLUENZA B PATIENT NEGATIVE (NEGATIVE)
[2021-09-04] MEDS ORDERED: IOHEXOL 240 MG/ML 50ML VIAL. PO ONE (05:45)
[2021-09-04] MEDS ORDERED: INSULIN REGULAR 100 UNIT/ML 3ML VIAL. IV ONE (05:45)
[2021-09-04] MEDS ORDERED: CONTRAST GIVEN. MC PRN (05:45)
[2021-09-04] MEDS: POTASSIUM CHLORIDE 20MEQ 100 ML IV SCH ×2 (06:00→06:19)
[2021-09-04 06:01] LABS: BARBITURATES NEG (NEG); BENZODIAZEPINES NEG (NEG); CANNABINOIDS NEG (NEG); COCAINE NEG (NEG); METHADONE NEG (NEG); OPIATES NEG (NEG); PHENCYCLIDINE NEG (NEG)
[2021-09-04 06:04] LABS: U PREG PATIENT NEGATIVE (NEG)
[2021-09-04 06:05] LABS: CLARITY,URINE CLOUDY; COLOR,URINE RED
[2021-09-04 06:06] LABS: BACTERIA,URINE FEW /HPF (0-FEW); RBC,URINE >40 /HPF (0-2); SQUAMOUS EPITHELIAL CELL,UR OCC /LPF
[2021-09-04 06:07] LABS: AMPHETAMINE/METHAMPHETAMINE POS (NEG)
--- NOTE | 2021-09-04 06:09 | RAD ---
EXAM: XR ABDOMEN COMP ACUTE 09/04/2021 4:50 AM CLINICAL INDICATION: Pain COMPARISON: None TECHNIQUE: AP supine and upright view of the abdomen. PA view of the chest FINDINGS: Bowel gas pattern is nonspecific and nonobstructive. Normal volume of stool. No abnormal calcificatio ns. No acute osseous abnormality. The heart is normal in size. Lungs are adequately expanded. No cons olidation, pleural effusion or pneumothorax. IMPRESSION: Normal abdominal series radiograph. Electronically signed by: Valentina Cantor MD (09/04/2021 6:07 AM) ANYA
[2021-09-04] MEDS ORDERED: METOCLOPRAMIDE HCL 10 MG/2 ML VIAL. IVP ONE (06:30)
[2021-09-04] MEDS ORDERED: IV DEXTROSE 5%-LACT RINGERS 1,000 ML IV ONE (06:30)
[2021-09-04] MEDS ORDERED: IOHEXOL 300 MG/ML 75 ML VIAL. IV ONE (06:45)
--- NOTE | 2021-09-04 07:50 | RAD ---
CT ABDOMEN+PELVIS W dated 09/04/2021 7:16 AM Indication:Reason: epigasgtric pain , hx pancreatitis / Spl. Instructions: ORAL CONTRAST GIVEN 0550, per Dr. geronimo IV only 0640, kgm / History: Comparison: CT 07/24/2021. Technique: CT images were performed through the abdomen and pelvis following oral contrast ingestion and using an infusion of 75 mL Omnipaque 300. One or more of the following individualized dose reduction techniques were utilized for this examinat ion: 1. Automated exposure control 2. Adjustment of the mA and/or kV according to patient size 3. Use of iterative reconstruction technique Findings: A small groundglass type opacity in the lingula appears unchanged. This reportedly has been present d ating back at least to CTA chest of 03/15/2019. The lung bases otherwise are clear. The liver again s hows diffuse fatty infiltration. No focal liver lesion is seen. The spleen appears normal. Both kidne ys enhance with contrast. There is no apparent mass or obstruction. The adrenal glands are not enlarg ed. The pancreas is relatively small for age. No mass or fluid collection is seen. The pancreas appea rs to enhance homogeneously. No obvious adjacent inflammation is seen. There is no apparent retroperi toneal or mesenteric adenopathy. No abdominal mass or definite inflammatory process is seen. The appe ndix is relatively prominent in caliber, showing diameter about 7 mm, but no adjacent inflammation is seen. Images through the pelvis show no abnormality of the distal ureters or bladder. No pelvic or inguinal adenopathy is seen. The uterus and right adnexal area appear normal for age. There is now a 5.2 cm l eft ovarian cyst. There is no separate pelvic mass or inflammatory process. IMPRESSION: 5.2 cm left ovarian cyst. Mildly prominent appendiceal diameter without adjacent inflammatory change. Fatty infiltration of the liver. Relatively small pancreas without clear cut CT evidence of pancreati tis. Electronically signed by: Wenceslao Celestin Jr., MD (09/04/2021 7:47 AM) [id number]
[2021-09-04 08:00] VITALS: BP 138/90
[2021-09-04] MEDS ORDERED: ONDA4TAB12 PO (08:24)
--- NOTE | 2021-09-04 18:55 | EKG ---
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
== END 2021-09-04 08:28 | disposition home or self-care (01) ==
LOC: ER 03:58
DX: D64.9 Anemia, unspecified (principal); R79.89 Other specified abnormal findings of blood chemistry; E87.6 Hypokalemia; E11.9 Type 2 diabetes mellitus without complications; F31.9 Bipolar disorder, unspecified; F20.9 Schizophrenia, unspecified; F10.20 Alcohol dependence, uncomplicated; I10 Essential (primary) hypertension; F15.10 Other stimulant abuse, uncomplicated; Z20.822 Contact with and (suspected) exposure to COVID-19; Y90.0 Blood alcohol level of less than 20 mg/100 ml
CPT/HCPCS: 36415; 74022; 74177; 80048; 80076; 80307; 81001; 81025; 82150; 82550; 82947; 83690; 84484; 85025; 85610; 85730; 87428; 93005; 96361; 96374; 96375; 99285; G0480; J1815; J1885; J2405; J2765; J3010; J3480; J3490; J7120; Q9966

== ENCOUNTER 2021-09-23 08:28 | Emergency (ER) | payer MEDICARE ==
[~2021-09-23] VITALS: Ht 157.5 cm; Wt 88.8 kg
[~2021-09-23 08:28] MED LIST changes: +ONDA4TAB12 PO
[2021-09-23 08:35] VITALS: BP 148/103
--- NOTE | 2021-09-23 08:59 | PHYS DOC ---
Past History Past Medical History: Alcoholism, Anxiety, Depression, Hypertension, Pancreatitis, Schizophrenia Past Surgical History: No Surgical History Smoking: Non-smoker Alcohol Use: Heavy Drug Use: Amphetamine General Adult EDM: Chief Complaint: SUICIDAL IDEATION HPI: HPI: 30-year-old female presents with depression and suicidal ideation. She tells me that she has been feeling depressed for a few months. She is also heavy drinker . She was just recently in another hospital for alcohol complications. Her last drink of alcohol was last night where she had 2 beers and a couple shots of vodka. She has had withdrawal symptoms in the past. That is why she was in the hospital. The patient has been having suicidal thoughts without a specific plan. She denies any other medical complaints at this time. Review of Systems: Review of Systems: Constitutional: Denies fever or chills Eyes: Denies change in visual acuity HENT: Denies nasal congestion or sore throat Respiratory: Denies cough or shortness of breath Cardiovascular: Denies chest pain or edema GI: Denies abdominal pain, nausea, vomiting, bloody stools or diarrhea : Denies dysuria Musculoskeletal: Denies back pain or joint pain Integument: Denies rash Neurologic: Denies headache, focal weakness or sensory changes Endocrine: Denies polyuria or polydipsia Lymphatic: Denies swollen glands Psychiatric: Depression, suicidal thoughts. Allergies: Allergies: Allergies Coded Allergies Type Severity Reaction Last Updated Verified No Known Drug Allergies 03/19/21 No Physical Exam: PE: Constitutional: Well developed, well nourished, obese, no acute distress, non-to xic appearance. [] HENT: Normocephalic, atraumatic, bilateral external ears normal, oropharynx moist, no oral exudates, nose normal. [] Eyes: PERRLA, EOMI, conjunctiva normal, no discharge. [] Neck: Normal range of motion, no tenderness, supple, no stridor. [] Cardiovascular: Heart rate regular rhythm, no murmur [] Lungs & Thorax: Bilateral breath sounds clear to auscultation [] Abdomen: Bowel sounds normal, soft, no tenderness, no masses, no pulsatile masses. [] Skin: Warm, dry, no erythema, no rash. [] Back: No tenderness, no CVA tenderness. [] Extremities: No tenderness, no cyanosis, no clubbing, ROM intact, no edema. [] Neurologic: Alert and oriented X 3, normal motor function, normal sensory function, no focal deficits noted. [] Psychologic: Affect normal, judgement normal, mood depressed. [] EKG: EKG: [] Radiology/Procedures: Radiology/Procedures: [] Heart Score: C/O Chest Pain: N/A Risk Factors: Risk Factors: DM, Current or recent (<one month) smoker, HTN, HLP, family history of CAD, obesity. Risk Scores: Score 0 - 3: 2.5% MACE over next 6 weeks - Discharge Home Score 4 - 6: 20.3% MACE over next 6 weeks - Admit for Clinical Observation Score 7 - 10: 72.7% MACE over next 6 weeks - Early Invasive Strategies Course & Med Decision Making: Course & Med Decision Making Pertinent Labs and Imaging studies reviewed. (See chart for details) The patient's labs are significant for an elevated liver enzymes. There are other mild anomalies in the labs, see labs for more details. Patient's urinalysis is negative for infection. Alcohol level is less than 10. She is positive for methamphetamines. She admits to recent use. The behavioral team has evaluated the patient and believe she would benefit from further inpatient management. The patient would prefer to go to the [place] instead of [facility]. She would like to drive herself. I believe this is reasonable. She is stable for discharge at this time. [] Surjit Disclaimer: Surjit Disclaimer: This electronic medical record was generated, in whole or in part, using a voice recognition dictation system. Departure Departure: Impression: Primary Impression: Suicidal ideation Additional Impression: Alcoholism Disposition: HOME / SELF CARE / HOMELESS Condition: STABLE Referrals: PCPISAI (PCP) Patient Instructions: Suicidal Feelings, How to Help Yourself ZENIA HANCOCK DO Sep 23, 2021 08:59
[2021-09-23 09:11] LABS: BASO % 0 % (0-3); EOS # 0.1 x10^3/uL (0.0-0.7); EOS % 1 % (0-3); HEMATOCRIT 35.8 % (36.0-47.0); HEMOGLOBIN 11.4 g/dL (12.0-15.5); LYMPH # 2.2 x10^3/uL (1.0-4.8); LYMPH % 25 % (24-48); MEAN CORPUSCULAR HEMOGLOBIN 27 pg (25-35); MEAN CORPUSCULAR HGB CONC 32 g/dL (31-37); MEAN CORPUSCULAR VOLUME 85 fL (79-100); MONO # 0.7 x10^3/uL (0.0-1.1); MONO % 8 % (0-9); NEUT # 5.8 x10^3uL (1.8-7.7); NEUT % 66 % (31-73); PLATELET COUNT 423 x10^3/uL (140-400); RED BLOOD COUNT 4.23 x10^6/uL (3.50-5.40); RED CELL DISTRIBUTION WIDTH 22.9 % (11.5-14.5); WHITE BLOOD COUNT 8.9 x10^3/uL (4.0-11.0)
[2021-09-23] MEDS ORDERED: LORazepam 1 MG TABLET PO ONE (09:15)
[2021-09-23 09:22] LABS: CREATININE 0.7 mg/dL (0.6-1.0); GFR 118.1; POTASSIUM 3.8 mmol/L (3.5-5.1)
[2021-09-23 09:23] LABS: BARBITURATES NEG (NEG); BENZODIAZEPINES NEG (NEG); CANNABINOIDS NEG (NEG); COCAINE NEG (NEG); METHADONE NEG (NEG); OPIATES NEG (NEG); PHENCYCLIDINE NEG (NEG)
[2021-09-23 09:24] LABS: AMORPHOUS SEDIMENT,UR PRESENT /HPF; BACTERIA,URINE FEW /HPF (0-FEW); CLARITY,URINE CLEAR; COLOR,URINE YELLOW; GLUCOSE,URINE 250 mg/dL (NEG); NITRITE,URINE NEG (NEG); SQUAMOUS EPITHELIAL CELL,UR MANY /LPF
[2021-09-23 09:28] LABS: ALBUMIN 3.2 g/dL (3.4-5.0); ALBUMIN/GLOBULIN RATIO 0.6 (1.0-1.7); TOTAL BILIRUBIN 0.7 mg/dL (0.2-1.0); TOTAL PROTEIN 8.2 g/dL (6.4-8.2)
[2021-09-23 09:28] LABS: AMPHETAMINE/METHAMPHETAMINE POS (NEG)
[2021-09-23 09:50] LABS: PLT ESTIMATE ADEQUATE (ADEQUATE)
[2021-09-23 09:51] LABS: TARGET CELLS OCC
== END 2021-09-23 12:14 | disposition home or self-care (01) ==
LOC: ER 08:28
DX: R45.851 Suicidal ideations (principal); F10.20 Alcohol dependence, uncomplicated; F41.9 Anxiety disorder, unspecified; F32.9 Major depressive disorder, single episode, unspecified; I10 Essential (primary) hypertension; F20.9 Schizophrenia, unspecified; Z20.822 Contact with and (suspected) exposure to COVID-19; Y90.0 Blood alcohol level of less than 20 mg/100 ml
CPT/HCPCS: 36415; 80053; 80307; 81001; 85025; 87426; 99285; C9803; G0480; U0003